=== PATIENT | female | born 1950 | race Caucasian/White ===

== ENCOUNTER 2018-05-19 09:40 | Emergency (ER) | payer MEDICARE, MEDICAID, SELFPAY ==
[2018-05-19 09:44] VITALS: BP 144/76; PULSE 70; RESP 18; TEMP 36.8; O2SAT 95
--- NOTE | 2018-05-19 10:04 | W.ED.GENAD ---
Discharge Plan Disposition Patient Disposition: HOME Condition: Stable Discharge Details Chief Complaint: Cellulitis Clinical Impression: Cat bite of left hand Primary Care Provider: Winnie,Local ED Provider: Anthony Sandoval Home Meds and New Rx's Prescriptions: New amoxicillin-pot clavulanate [Augmentin] 875-125 mg tablet 1 tab PO BID Qty: 14 RF: 0 Continued gabapentin 800 mg Tablet 800 mg PO TID RF: 0 trazodone 50 mg Tablet 150 mg PO HS RF: 0 amlodipine 2.5 mg Tablet 2.5 mg PO DAILY RF: 0 atorvastatin 40 mg Tablet 40 mg PO DAILY RF: 0 Myrbetriq 50 mg Tablet Extended Release 24 Hr 50 mg PO DAILY RF: 0 lisinopril 20 mg Tablet 20 mg PO DAILY RF: 0 paroxetine HCl 40 mg Tablet 60 mg PO QAM RF: 0 Discharge Instructions Instructions: Animal Bite (ED) Medical Decision Making 67 yo female who states she is utd on tetanus vaccines comes in as she was bitten by a neighbor's cat in the left hand this past Saturday. Came in today because of some discomfort. HAs healing bite wounds (4) that are puncture wounds with mild redness around the wounds. No significant swelling or discharge, no crepitus to suggest nec fasc and no joint swelling with full rom so doubt septic joint. No significant pain or deformity so doubt fx and do not feel xrays indicated. Will place on augmentin. She states the cat is still with the neighbor so can be monitored for rabies and understands to return immediately if signs of infection occur in hand or signs of rabies in the cat Differential Diagnosis animal bite, cellulitis HPI General Mode of arrival: ambulatory. Date/Time Provider Initiated Documentation: 05/19/18 09:58. Limitations to Documentation: no limitations. Information obtained by: patient. History of Present Illness 67 year old F presents to the emergency department with the chief complaint of left hand bite, described as moderate, Quality is described as aching, and is localized to the left and upper extremity. Patient reports no radiation. Patient started experiencing this day(s) (2) and it has been constant. No relieving factors improve symptom(s), No exacerbating factors reported . Patient notes no other symptoms.. Related Data Home Medications Medication Instructions Recorded Confirmed Myrbetriq 50 mg PO DAILY 05/19/18 05/19/18 amlodipine 2.5 mg PO DAILY 05/19/18 05/19/18 amoxicillin-pot clavulanate 1 tab PO BID #14 tab 05/19/18 [Augmentin] atorvastatin 40 mg PO DAILY 05/19/18 05/19/18 gabapentin 800 mg PO TID 05/19/18 05/19/18 lisinopril 20 mg PO DAILY 05/19/18 05/19/18 paroxetine HCl 60 mg PO QAM 05/19/18 05/19/18 trazodone 150 mg PO HS 05/19/18 05/19/18 Previous Rx's Medication Instructions Recorded amoxicillin-pot clavulanate 1 tab PO BID #14 tab 05/19/18 [Augmentin] Allergies Allergy/AdvReac Type Severity Reaction Status Date / Time risedronate sodium AdvReac Unverified 05/19/18 09:51 General Stated Complaint: Cellulitis NEHAL: 3 Review of Systems Review of Systems All systems reviewed & are unremarkable except as noted in HPI and below Constitutional Denies chills and Denies fever(s) ENT Denies change in voice Cardiovascular Denies chest pain and Denies dyspnea Respiratory Denies cough and Denies dyspnea Gastrointestinal Denies abdominal pain, Denies nausea and Denies vomiting [facility] Medical History Hypertension (Chronic) GERD (gastroesophageal reflux disease) (Chronic) Osteoporosis (Chronic) Hypercholesterolemia (Acute) Depression (Chronic) Chronic back pain (Acute) Fibromyalgia (Acute) Iron deficiency (Acute) Hx of bladder cancer (Acute) Cervical spondylosis without myelopathy (Acute) Primary insomnia (Acute) Urinary frequency (Acute) Primary osteoarthritis involving multiple joints (Acute) Arthritis of left acromioclavicular joint (Acute) Bilateral dry eyes (Acute) Hx of tuberculosis (Acute) Incontinence of feces (Acute) Skin lesion of right ear (Acute) Trochanteric bursitis (Acute) 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) Surgical History History of total bilateral knee replacement (TKR) (Acute) History of total left hip arthroplasty (Acute ~04/2016) Social History Smoking/Tobacco Use Status: Never Alcohol Intake: current Alcohol Intake frequency: a few times a month Drug use: Never Substance use type: does not use Do you feel safe at home: Yes Do you feel safe in your relationship?: Yes Exam Const General: no acute distress Orientation: alert HENMT Head: normal to inspection Ears: external ears normal General nose exam: external nose normal Mouth: moist mucous membranes Eyes General: appearance normal, both eyes and all related structures Neck Neck: normal visual inspection Resp Effort & Inspection: normal respiratory effort and able to speak in complete sentences Cardio Rate: regular rate Skin General skin exam: no rashes or lesions noted Neuro General: alert and oriented x3 Extrem General: full ROM and normal capillary refill Psych Mental Status: mental status grossly normal Course Vital Signs Temperature 36.8 C 05/19/18 09:44 Pulse 70 05/19/18 09:44 Respiratory Rate 18 05/19/18 09:44 Blood Pressure 144/76 H 05/19/18 09:44 Pulse Oximetry 95 05/19/18 09:44 Temperature 36.8 C 05/19/18 09:44 Temperature Source Skin 05/19/18 09:44 Pulse 70 05/19/18 09:44 Respiratory Rate 18 05/19/18 09:44 Respiratory Effort 05/19/18 09:58 Blood Pressure 144/76 H 05/19/18 09:44 Blood Pressure Position Sitting 05/19/18 09:44 Pulse Oximetry 95 05/19/18 09:44 Oxygen Delivery Method Room Air 05/19/18 09:44 Oxygen Flow Rate 0 05/19/18 09:44 Pain Level 0 05/19/18 09:44
--- NOTE | 2018-05-19 10:08 | ED.GENADUL_ITS ---
Discharge Plan Disposition Patient Disposition: HOME Condition: Stable Discharge Details Chief Complaint: Cellulitis Clinical Impression: Cat bite of left hand Primary Care Provider: Winnie,Local ED Provider: Anthony Sandoval Home Meds and New Rx's Prescriptions: New amoxicillin-pot clavulanate [Augmentin] 875-125 mg tablet 1 tab PO BID Qty: 14 RF: 0 Continued gabapentin 800 mg Tablet 800 mg PO TID RF: 0 trazodone 50 mg Tablet 150 mg PO HS RF: 0 amlodipine 2.5 mg Tablet 2.5 mg PO DAILY RF: 0 atorvastatin 40 mg Tablet 40 mg PO DAILY RF: 0 Myrbetriq 50 mg Tablet Extended Release 24 Hr 50 mg PO DAILY RF: 0 lisinopril 20 mg Tablet 20 mg PO DAILY RF: 0 paroxetine HCl 40 mg Tablet 60 mg PO QAM RF: 0 Discharge Instructions Instructions: Animal Bite (ED) Medical Decision Making 67 yo female who states she is utd on tetanus vaccines comes in as she was bitten by a neighbor's cat in the left hand this past Saturday. Came in today because of some discomfort. HAs healing bite wounds (4) that are puncture wounds with mild redness around the wounds. No significant swelling or discharge, no crepitus to suggest nec fasc and no joint swelling with full rom so doubt septic joint. No significant pain or deformity so doubt fx and do not feel xrays indicated. Will place on augmentin. She states the cat is still with the neighbor so can be monitored for rabies and understands to return immediately if signs of infection occur in hand or signs of rabies in the cat Differential Diagnosis animal bite, cellulitis HPI General Mode of arrival: ambulatory . Date/Time Provider Initiated Documentation: 05/19/18 09:58 . Limitations to Documentation: no limitations . Information obtained by: patient . History of Present Illness 67 year old F presents to the emergency department with the chief complaint of left hand bite, described as moderate, Quality is described as aching, and is localized to the left and upper extremity. Patient reports no radiation. Patient started experiencing this day(s) (2) and it has been constant. No relieving factors improve symptom(s), No exacerbating factors reported . Patient notes no other symptoms.. Related Data Home Medications Medication Instructions Recorded Confirmed Myrbetriq 50 mg PO DAILY 05/19/18 05/19/18 amlodipine 2.5 mg PO DAILY 05/19/18 05/19/18 amoxicillin-pot clavulanate 1 tab PO BID #14 tab 05/19/18 [Augmentin] atorvastatin 40 mg PO DAILY 05/19/18 05/19/18 gabapentin 800 mg PO TID 05/19/18 05/19/18 lisinopril 20 mg PO DAILY 05/19/18 05/19/18 paroxetine HCl 60 mg PO QAM 05/19/18 05/19/18 trazodone 150 mg PO HS 05/19/18 05/19/18 Previous Rx's Medication Instructions Recorded amoxicillin-pot clavulanate 1 tab PO BID #14 tab 05/19/18 [Augmentin] Allergies Allergy/AdvReac Type Severity Reaction Status Date / Time risedronate sodium AdvReac Unverified 05/19/18 09:51 General Stated Complaint: Cellulitis NEHAL: 3 Review of Systems Review of Systems All systems reviewed & are unremarkable except as noted in HPI and below Constitutional Denies chills and Denies fever(s) ENT Denies change in voice Cardiovascular Denies chest pain and Denies dyspnea Respiratory Denies cough and Denies dyspnea Gastrointestinal Denies abdominal pain, Denies nausea and Denies vomiting [facility] Medical History Hypertension (Chronic) GERD (gastroesophageal reflux disease) (Chronic) Osteoporosis (Chronic) Hypercholesterolemia (Acute) Depression (Chronic) Chronic back pain (Acute) Fibromyalgia (Acute) Iron deficiency (Acute) Hx of bladder cancer (Acute) Cervical spondylosis without myelopathy (Acute) Primary insomnia (Acute) Urinary frequency (Acute) Primary osteoarthritis involving multiple joints (Acute) Arthritis of left acromioclavicular joint (Acute) Bilateral dry eyes (Acute) Hx of tuberculosis (Acute) Incontinence of feces (Acute) Skin lesion of right ear (Acute) Trochanteric bursitis (Acute) 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) Surgical History History of total bilateral knee replacement (TKR) (Acute) History of total left hip arthroplasty (Acute ~04/2016) Social History Smoking/Tobacco Use Status: Never Alcohol Intake: current Alcohol Intake frequency: a few times a month Drug use: Never Substance use type: does not use Do you feel safe at home: Yes Do you feel safe in your relationship?: Yes Exam Const General: no acute distress Orientation: alert HENMT Head: normal to inspection Ears: external ears normal General nose exam: external nose normal Mouth: moist mucous membranes Eyes General: appearance normal, both eyes and all related structures Neck Neck: normal visual inspection Resp Effort & Inspection: normal respiratory effort and able to speak in complete sentences Cardio Rate: regular rate Skin General skin exam: no rashes or lesions noted Neuro General: alert and oriented x3 Extrem General: full ROM and normal capillary refill Psych Mental Status: mental status grossly normal Course Vital Signs Temperature 36.8 C 05/19/18 09:44 Pulse 70 05/19/18 09:44 Respiratory Rate 18 05/19/18 09:44 Blood Pressure 144/76 H 05/19/18 09:44 Pulse Oximetry 95 05/19/18 09:44 Temperature 36.8 C 05/19/18 09:44 Temperature Source Skin 05/19/18 09:44 Pulse 70 05/19/18 09:44 Respiratory Rate 18 05/19/18 09:44 Respiratory Effort 05/19/18 09:58 Blood Pressure 144/76 H 05/19/18 09:44 Blood Pressure Position Sitting 05/19/18 09:44 Pulse Oximetry 95 05/19/18 09:44 Oxygen Delivery Method Room Air 05/19/18 09:44 Oxygen Flow Rate 0 05/19/18 09:44 Pain Level 0 05/19/18 09:44
--- NOTE | 2018-05-19 10:33 | NUR.NOTE ---
Left a message on [facility] health officer voice mail [phone] asking for a call back to report animal bite, faxed animal bite form to [facility] clerks office [phone].Nursing Note:
== END 2018-05-19 10:21 | disposition home or self-care (01) ==
PROVIDERS: Emergency Provider Emergency Medicine
DX: L03.114 Cellulitis of left upper limb (principal)
CPT/HCPCS: 99283

== ENCOUNTER 2018-06-25 10:21 | Outpatient (CLI) | payer MEDICARE, MEDICAID, SELFPAY ==
--- NOTE | 2018-06-25 10:17 | DI.RAD_ITS ---
SYMPTOM/DIAGNOSIS: LT SHOULDER PAIN LEFT SHOULDER: Two views were obtained. There are moderate changes of hypertrophic spurring of the acromioclavicular and glenohumeral joints. No other significant bony abnormality is seen.
== END 2018-06-25 10:41 ==
PROVIDERS: PCP Family Medicine; Referring Provider Family Medicine; Visit Provider Orthopaedic Surgery
DX: G89.29 Other chronic pain (principal); M25.512 Pain in left shoulder
CPT/HCPCS: 20610; 99201; 99213; 73030; J1040

== ENCOUNTER 2018-08-01 13:00 | Outpatient (REF) | payer MEDICARE, MEDICAID, SELFPAY ==
[2018-08-01 13:12] LABS: Abs Immature Grans 0.01 k/cumm (0.0-0.09); Absolute Basophil Count 0.04 k/cumm (0.0-0.2); Absolute Eosinophil Count 0.14 k/cumm (0.0-0.7); Absolute Lymphocyte Count 1.43 k/cumm (1.2-3.4); Absolute Monocyte Count 0.41 k/cumm (0.11-0.7); Absolute Neutrophil Count 2.46 k/cumm (1.2-6.7); Basophils % 0.9; Eosinophils % 3.1; HCT 42.5 % (36.0-46.0); HGB 14.2 g/dL (12.0-15.5); Immature Grans % 0.2; Lymphocytes % 31.8; Mean Corp. HGB Concentration 33.4 g/dL (32.0-36.0); Mean Corpuscular Hemoglobin 36.4 pg (27.0-33.0); Mean Platelet Volume 10.2 fL (8.0-11.0); Monocytes % 9.1; Neutrophils % 54.9; Platelet Count 180 x1000/uL (130-400); RBC Distribution Width 12.8 % (11.7-14.6); White Blood Cell Count 4.49 k/cumm (4.4-10.8)
[2018-08-01 14:31] LABS: Diff Comment RBC Morph Reviewed; Macrocytosis 2+
== END 2018-08-01 13:20 ==
LOC: NCHCN 13:00
PROVIDERS: PCP Family Medicine; Visit Provider Family Medicine
DX: R23.8 Other skin changes (principal)
CPT/HCPCS: 85025

== ENCOUNTER → 2018-08-06 09:20 | Outpatient (BNVA) | payer MEDICARE, MEDICAID, SELFPAY | PROVIDERS: PCP Family Medicine; Referring Provider Family Medicine; Visit Provider Orthopaedic Surgery | DX: M75.102 Unspecified rotator cuff tear or rupture of left shoulder, not specified as traumatic (principal); Z98.890 Other specified postprocedural states; I10 Essential (primary) hypertension; M19.012 Primary osteoarthritis, left shoulder | CPT/HCPCS: 99213 ==

== ENCOUNTER 2018-08-15 01:44 | Outpatient (CLI) | payer MEDICARE, MEDICAID, SELFPAY ==
--- NOTE | 2018-08-15 07:11 | DI.MRI_ITS ---
SYMPTOMS/DIAGNOSIS: LT SHOULDER PAIN, OA LT AC JOINT, M19.012, LT ROTATOR CUFF TEAR, M75.102 MRI OF THE LEFT SHOULDER: Comparison is made with plain films dated [id number]. Proton density and fat suppressed T 2 axial and coronal and T 1 and fat suppressed T 2 sagittal sequences were performed. There are mild degenerative changes of the AC joint. There is no definite impingement. There is some high signal in the anterior supraspinatus tendon which could represent tendinitis or partial tear. There is no significant joint effusion. There are subchondral cysts near the greater tuberosity. There is some degeneration of the glenoid labrum and thinning of the glenohumeral joint cartilage. The infraspinatus, subscapularis, teres minor and biceps tendons appear intact. IMPRESSION: Partial tear vs tendinitis of the supraspinatus. Degenerative changes of the glenohumeral joint.
== END 2018-08-15 02:04 ==
PROVIDERS: PCP Family Medicine; Visit Provider Orthopaedic Surgery
DX: M19.012 Primary osteoarthritis, left shoulder (principal); M75.102 Unspecified rotator cuff tear or rupture of left shoulder, not specified as traumatic; M25.512 Pain in left shoulder; M25.812 Other specified joint disorders, left shoulder
CPT/HCPCS: 73221

== ENCOUNTER → 2018-08-18 08:44 | Outpatient (BNVA) | payer MEDICARE, MEDICAID, SELFPAY | PROVIDERS: PCP Family Medicine; Referring Provider Family Medicine; Visit Provider Surgery | DX: K21.9 Gastro-esophageal reflux disease without esophagitis (principal); I10 Essential (primary) hypertension | CPT/HCPCS: 99203; 99214 ==

== ENCOUNTER → 2018-08-21 09:23 | Outpatient (BNVA) | payer MEDICARE, MEDICAID, SELFPAY | PROVIDERS: Referring Provider Family Medicine; Visit Provider Orthopaedic Surgery | DX: M19.012 Primary osteoarthritis, left shoulder (principal) | CPT/HCPCS: 99213 ==

== ENCOUNTER 2018-08-25 07:19 | Day surgery (SDC) | payer MEDICARE, MEDICAID, SELFPAY ==
[2018-08-25] VITALS (7 sets, daily range): BP systolic 95–128; BP diastolic 51–73; PULSE 59–67; RESP 14–27; TEMP 36–36.7; O2SAT 92–94
[2018-08-25] MEDS: ceFAZolin 1 GM/50 ML BAG IVPB (09:59)
--- NOTE | 2018-08-25 10:18 | STOM_PTH ---
PATIENT: Wendy Salter LOC: [facility] U#:[id number] AGE/SX: 67/F ROOM: RE08/25/[address]: Briseida Tovar MD : [id number] BED: DIS: 08/25/2018 SPEC #: [id number] RECD: 08/25/18 12:54 STATUS: ALEXANDRA REQ #: [id number] RD: 08/25/18 10:[address]: Briseida Tovar DEPT: Surgical Specimen RECD BY: Bridgette Hunter ENTERED: 08/25/18 12:56 SP TYPE: STOMACH OTHR DR: MD Ezra Ferreira DO Tissues: 1 - STOMACH BIOPSY 2 - ESOPHAGUS BIOPSY 3 - ESOPHAGUS BIOPSY Procedures: GROSS AND MICRO LEVEL 4 Comments: [id number]
--- NOTE | 2018-08-25 11:06 | W.PM.DSUDISC ---
Discharge Plan Disposition Patient Disposition: HOME Condition: Good Discharge Details Reason For Visit: (L) SHOULDER DISTAL CLAVICLE / DYSPHAGIA Attending Provider: Briseida Tovar Primary Care Provider: Ezra Lebron Home Meds and New Rx's Prescriptions: New hydrocodone-acetaminophen 5-325 mg tablet 1 tab PO Q6H PRN (Reason: pain) Qty: 10 RF: 0 Continued Shingrix (PF) 50 mcg/0.5 mL suspension for reconstitution 50 mcg IM ONCE Qty: 1 RF: 1 paroxetine HCl 40 mg tablet 60 mg PO QAM Qty: 135 RF: 3 naproxen sodium [Aleve] 220 mg tablet 440 mg PO BID PRNRF: 0 acetaminophen [Tylenol] 325 mg capsule 975 mg PO TID PRNRF: 0 cholecalciferol (vitamin D3) 1,000 unit capsule 1,000 unit PO DAILY RF: 0 loperamide 2 mg capsule 2 mg PO TID PRN (Reason: diarrhea) RF: 0 albuterol sulfate 90 mcg/actuation HFA aerosol inhaler See Rx Instructions IH Q4H PRN (Reason: Wheezing or cough) RF: 0 gabapentin 800 mg Tablet 800 mg PO TID RF: 0 trazodone 50 mg Tablet 150 mg PO HS RF: 0 amlodipine 2.5 mg Tablet 2.5 mg PO DAILY RF: 0 atorvastatin [Lipitor] 40 mg Tablet 40 mg PO DAILY RF: 0 Myrbetriq 50 mg Tablet Extended Release 24 Hr 50 mg PO DAILY RF: 0 lisinopril 20 mg Tablet 20 mg PO DAILY RF: 0 Discharge Instructions Additional Instructions: Sling for comfort. May take L arm out of sling as much as your discomfort allows. Discontinue sling completely when you can keep L arm out of sling with mild pain. Move and use L arm as much as your discomfort allows you to. Apply bag of ice to top of L shoulder every 4 hours for 1 hour each time. May remove dressings, shower, and get incision wet after 48 hours. Leave incision uncovered when it is dry and sealed. Follow up with in 2 weeks. Take tylenol for mild pain. Take hydrocodone for breakthru pain, if needed. Referrals: Ulises Heart MD [ [facility] STAFF PHYSICIAN] - (f/u in 2 weeks.) Equipment/Supplies: Sling Activity:: Activity as Tolerated Remove Dressings/Wound Care:: 48 hours Shower/Bathe:: 48 hours Diet:: As Tolerated Discharge Orders Discharge Orders: Discharge Order (Routine); Ordered 08/25/18 Ordered By: Ulises Heart
--- NOTE | 2018-08-25 15:33 | ROE_ITS ---
DATE OF PROCEDURE: August 25, 2018 PREOPERATIVE DIAGNOSIS: Reflux. POSTOPERATIVE DIAGNOSIS: 1. Mild gastritis and duodenitis. 2. 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 3. Dysphagia status post lap Sarika. PROCEDURE: 1. EGD with biopsy of gastric antrum and distal and mid esophagus. 2. Esophageal dilation with a balloon. SURGEON: Briseida Tovar M.D. ANESTHESIA: General endotracheal. INDICATIONS: This is a 67-year-old woman who report substernal burning several times a week. She is also having trouble swallowing her pills and crackers. She has needed dilation once in the past. W e did obtain an EGD report from 2004 that also showed possible Rod's esophagus. This particular report did not describe any dilation. She had a brother with esophageal cancer. PROCEDURE: She was placed supine on the operating table and was intubated in preparation for her con comitant shoulder surgery. The scope was advanced into her esophagus under direct visualization and down into the stomach and duodenum. She had mild duodenitis in the bulb, as well as of the gastric a ntrum. Biopsies were performed here to evaluate for H. pylori. The remainder of the stomach appeare d normal. Retroflex view of the fundus and lesser curve just showed an intact-appearing wrap. The G E junction was somewhat irregular with possible Rod's esophagus extending 1 or 2 cm into the esop hagus in two locations. These were biopsied and sent as the distal esophagus specimen. I also biops ied the mid esophagus to evaluate for possible eosinophilia. Because of her issues with dysphagia, I did perform a balloon dilation at the GTE junction. The 18 [place] balloon was inflated and held in place for a minute. There was no unusual trauma to the vicinity. The scope was slowly withdrawn wi th no other esophageal lesions found. She tolerated the procedure well and remained in the Operating Room for Dr. Heart's portion of the procedure. It may be necessary to keep her on a regular antaci d. I will contact with biopsy results. cc: Ezra Lebron D.O.
--- NOTE | 2018-08-25 16:32 | ROE_ITS ---
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 POSTOPERATIVE DIAGNOSIS: Same. PROCEDURE: Excision distal clavicle, left. ANESTHESIA: General. SURGEON: Ulises Heart M.D. [employer] SCIENCE TE[employer]ER: Noe Mcclain PA-C INDICATIONS: This is a 67-year-old white female with continued severe left shoulder pain of several months duration. She has not responded to conservative treatment, including subacromial space inject ions. MRI scan was obtained which confirmed DJD of the AC joint with no tear of the rotator cuff. C linical examination was consistent with the AC joint being the source of her pain. Excision of the d istal clavicle was recommended to alleviate her shoulder pain on a permanent basis because of the sondra lure of conservative treatment to do so. The patient had been scheduled for upper endoscopy with Dr. Tovar on 08/26/18. It was decided that rather than have two anesthetics that she would have both proc edures done under the same anesthetic. The decision was made to have Dr. Tovar proceed with the endos copy first and that I would follow with the excision of the distal clavicle on the left. Please see Dr. Tovar's note for specifics about the endoscopy. PROCEDURE: The patient was taken to the Operating Room on 08/25/18. She was placed supine on the ope rating table and sedated so the endoscopy could be performed by Dr. Tovar. After the endoscopy was co mplete, a general anesthetic was administered. The patient was placed in the smith chair position a nd the left shoulder was prepped and draped free in the usual sterile fashion. I infiltrated the ski n on the superior aspect of the shoulder with 0.5% Marcaine with an epinephrine solution. A longitud inal incision about three inches long was made on the superior aspect of the shoulder, centered over the AC joint. The incision was carried down through the skin and subcu to the AC joint capsule. A l ongitudinal incision was made in the AC joint capsule with electrocautery and the distal clavicle was subperiosteally exposed. AO metatarsal retractors were inserted. The distal centimeter of the cla vicle was transected with oscillating saw. The distal clavicle was then sharply excised. The wound was irrigated with saline solution. Soft tissue bleeders were cauterized. I packed the distal clavi livia with bone wax to limit bony bleeding. The AC joint capsule was then infiltrated with 0.5% Marcai ne with an epinephrine solution. The subacromial bursa was then injected with 0.5% Marcaine with an epinephrine solution also. The periosteum over the distal clavicle and the AC joint capsule were rep aired with interrupted [id number] sutures of #1 Vicryl suture material. The subcu was approxima pancho with a few interrupted #2-0 Vicryl sutures and a subcuticular closure was performed, supplemented with Steri-Strips. Sterile dressings were applied, followed by a light pressure dressing to the inc ision. The left arm was placed in a sling. The patient's anesthesia was reversed without complicati on. Blood loss was minimal. She was discharged to recovery in good condition. The patient was discharged home from the Day Surgery Unit when fully recovered from her general anest hesia. She was given instructions to use the sling for comfort. She may take her left arm out of th e sling as often and for as long as discomfort allows. She can wean herself out of the sling complet caio once her left shoulder pain is minimal. She may remove her dressings, shower and get her incisio n wet after 48 hours. She can leave the incision uncovered when it is dry and sealed. She will take Tylenol for mild pain. For breakthrough pain she was given a prescription for Hydrocodone with APAP 5/325, one tablet every six hours, if needed. She will follow-up with me in two weeks. She may use her left arm as much as discomfort allows.
== END 2018-08-25 13:10 | disposition home or self-care (01) ==
PROVIDERS: Orthopaedic Surgery; PCP Family Medicine; Visit Provider Surgery
PROC: (CPT 23120; principal; 2018-08-25 08:30)
PROC: 0D758ZZ Dilation of Esophagus, Via Natural or Artificial Opening Endoscopic (ICD-10-PCS; 2018-08-25 08:30)
DX: M19.012 Primary osteoarthritis, left shoulder (principal); K21.0 Gastro-esophageal reflux disease with esophagitis; K29.80 Duodenitis without bleeding; R13.10 Dysphagia, unspecified; M25.512 Pain in left shoulder
CPT/HCPCS: 23120; 43239; 43249; 88305; J0690; J1100; J1885; J2405; L3650

== ENCOUNTER → 2018-09-09 09:10 | Outpatient (BNVA) | payer MEDICARE, MEDICAID, SELFPAY | PROVIDERS: PCP Family Medicine; Referring Provider Family Medicine; Visit Provider Orthopaedic Surgery | DX: Z47.89 Encounter for other orthopedic aftercare (principal); I10 Essential (primary) hypertension; M19.012 Primary osteoarthritis, left shoulder ==

== ENCOUNTER 2018-10-08 11:29 | Outpatient (CLI) | payer MEDICARE, MEDICAID, SELFPAY ==
--- NOTE | 2018-10-08 09:43 | DI.RAD_ITS ---
SYMPTOM/DIAGNOSIS: PAIN RIGHT HIP AND PELVIS: Two views. No priors. The patient has a prior left total hip replacement which appears in good position on these views. The right hip joint is well maintained without significant degenerative change. The bones are intact and normally mineralized. The soft tissues are unremarkable. IMPRESSION: Negative right hip.
== END 2018-10-08 11:49 ==
PROVIDERS: PCP Family Medicine; Referring Provider Family Medicine; Visit Provider Orthopaedic Surgery
DX: M25.551 Pain in right hip (principal); Z96.642 Presence of left artificial hip joint; M16.11 Unilateral primary osteoarthritis, right hip; I10 Essential (primary) hypertension; Z96.653 Presence of artificial knee joint, bilateral
CPT/HCPCS: 99211; 99213; 73502

== ENCOUNTER 2018-10-09 11:21 | Outpatient (REF) | payer MEDICARE, MEDICAID, SELFPAY ==
[2018-10-09 20:40] LABS: ALT 39 U/L (14-59); AST 27 U/L (15-37); Albumin 4.1 g/dL (3.4-5.0); Alkaline Phosphatase 74 U/L (46-116); Anion Gap 10.7 mmol/L (3-11); BUN 15 mg/dL (7-18); Bilirubin, Total 0.9 mg/dL (0.2-1.0); CO2 25.3 mmol/L (21.0-32.0); CREATININE 0.91 mg/dL (0.55-1.02); Calcium 8.9 mg/dL (8.5-10.1); Chloride 105 mmol/L (98-107); Folate 15.6 ng/mL (8.6-20.0); Glucose 99 mg/dL (70-100); Potassium 4.3 mmol/L (3.5-5.1); Sodium 141 mmol/L (136-145); Total Protein 7.2 g/dL (6.4-8.2); Vitamin B12 358 pg/mL (193-986)
== END 2018-10-09 11:41 ==
LOC: LBN 11:21
PROVIDERS: PCP Family Medicine; Visit Provider Family Medicine
DX: M13.0 Polyarthritis, unspecified (principal); D75.89 Other specified diseases of blood and blood-forming organs
CPT/HCPCS: 80053; 82607; 82746

== ENCOUNTER 2018-11-07 17:30 | Emergency (ER) | payer MEDICARE, MEDICAID, SELFPAY ==
[2018-11-07 17:35] VITALS: BP 135/76; PULSE 69; RESP 18; TEMP 36.9; O2SAT 98
--- NOTE | 2018-11-07 17:39 | DI.RAD_ITS ---
EXAM: XR ANKLE RT COMPLETE INDICATION: R ankle pain after errant footsetep. COMPARISON: No exams were available for comparison TECHNIQUE: 2D digital imaging was performed. FINDINGS: There is a nondisplaced transverse fracture of the lateral malleolus. No other fracture or dislocati on is identified. There is soft tissue swelling of the particularly laterally. IMPRESSION: Fracture of the lateral malleolus as described above.
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
--- NOTE | 2018-11-07 18:54 | NUR.NOTE ---
Nursing Note: report given to Romy CARPENTER
== END 2018-11-07 19:31 | disposition home or self-care (01) ==
PROVIDERS: Emergency Provider Emergency Medicine; PCP Family Medicine
DX: S82.64XA Nondisplaced fracture of lateral malleolus of right fibula, initial encounter for closed fracture (principal); X50.1XXA Overexertion from prolonged static or awkward postures, initial encounter
CPT/HCPCS: 29515; 99283; 73610; 99282; E0114; L4361

== ENCOUNTER 2018-11-18 15:22 | Outpatient (CLI) | payer MEDICARE, MEDICAID, SELFPAY ==
--- NOTE | 2018-11-18 12:52 | DI.RAD_ITS ---
EXAM: XR ANKLE RT COMPLETE INDICATION: fracture. COMPARISON: XR ANKLE RT COMPLETE from 11/07/2018 TECHNIQUE: 2D digital imaging was performed. FINDINGS: When compared with the previous examination, again noted is a nondisplaced fracture of the lateral ma lleolus. There is some blurring of the fracture line and there is nothing to suggest that healing is not progressing satisfactorily at the present time.
--- NOTE | 2018-11-18 13:27 | DI.RAD_ITS ---
EXAM: XR FOOT RT COMPLETE INDICATION: FRACTURE. COMPARISON: No exams were available for comparison TECHNIQUE: 2D digital imaging was performed. FINDINGS: There is an apparent healing nondisplaced fracture of the proximal metaphysis of the proximal phalanx of the right 2nd toe.
== END 2018-11-18 15:42 ==
PROVIDERS: PCP Family Medicine; Referring Provider Family Medicine; Visit Provider Student in an Organized Health Care Education/Training Program
DX: S82.831A Other fracture of upper and lower end of right fibula, initial encounter for closed fracture (principal); W07.XXXA Fall from chair, initial encounter; I10 Essential (primary) hypertension
CPT/HCPCS: 99203; 99214; 73610; 73630

== ENCOUNTER → 2019-02-02 10:22 | Outpatient (BNVA) | payer MEDICARE, MEDICAID, SELFPAY | PROVIDERS: PCP Family Medicine; Referring Provider Family Medicine; Visit Provider Nurse Practitioner Gerontology | DX: R31.9 Hematuria, unspecified (principal); Z85.51 Personal history of malignant neoplasm of bladder; R35.0 Frequency of micturition; R05 Cough | CPT/HCPCS: 81003; 99204; 99215 ==

== ENCOUNTER → 2019-02-19 10:31 | Outpatient (BNVA) | payer MEDICARE, MEDICAID, SELFPAY | PROVIDERS: PCP Family Medicine; Referring Provider Family Medicine; Visit Provider Nurse Practitioner Gerontology | DX: N32.81 Overactive bladder (principal) | CPT/HCPCS: 64566; 99214 ==

== ENCOUNTER 2019-02-23 00:59 | Outpatient (CLI) | payer MEDICARE, MEDICAID, SELFPAY ==
--- NOTE | 2019-02-23 15:21 | DI.MAMMO_ITS ---
EXAM: MG MAMMO SCREENING CLINICAL HISTORY: screening Z12.39. TECHNIQUE: Bilateral full field digital CC and MLO mammographic images were obtained with 3D tomosyn thesis and utilizing computer aided detection (CAD). COMPARISON: Available for comparison. FINDINGS: Masses/Architectural Distortion: None seen. Microcalcifications: No suspicious pleomorphic-type are seen. Skin Thickening/Nipple Retraction: None. IMPRESSION: 1. No significant interval change with no specific features of malignancy noted. 2. Unless there is more urgent need, screening mammography is recommended, as per [place] [employer] guidelines. ACR BI-RAD Category- 1 Negative Breast Density - Category B - Scattered areas of fibroglandular density A negative radiographic report should not delay biopsy if a dominant or clinically suspicious mass is present. Up to ten percent of cancers are not identified on mammography. A negative report may reinforce clinical impression. Adenosis and dense breasts may obscure an underlying neoplasm. False positive reports average 6 to 10%. Patient will receive a letter notifying them of these results.
== END 2019-02-23 01:19 ==
PROVIDERS: PCP Family Medicine; Visit Provider Family Medicine
DX: Z12.31 Encounter for screening mammogram for malignant neoplasm of breast (principal)
CPT/HCPCS: 77063; 77067

== ENCOUNTER → 2019-03-05 14:53 | Outpatient (BNVA) | payer MEDICARE, MEDICAID, SELFPAY | PROVIDERS: PCP Family Medicine; Referring Provider Family Medicine; Visit Provider Nurse Practitioner Gerontology | DX: N32.81 Overactive bladder (principal) | CPT/HCPCS: 64566; 99213 ==

== ENCOUNTER → 2019-03-12 15:13 | Outpatient (BNVA) | payer MEDICARE, MEDICAID, SELFPAY | PROVIDERS: PCP Family Medicine; Referring Provider Family Medicine; Visit Provider Nurse Practitioner Gerontology | DX: N32.81 Overactive bladder (principal) | CPT/HCPCS: 64566; 99213 ==

== ENCOUNTER → 2019-03-19 10:43 | Outpatient (BNVA) | payer MEDICARE, MEDICAID, SELFPAY | PROVIDERS: PCP Family Medicine; Referring Provider Family Medicine; Visit Provider Nurse Practitioner Gerontology | DX: R30.0 Dysuria (principal); N32.81 Overactive bladder | CPT/HCPCS: 64566; 81003; 99213 ==

== ENCOUNTER → 2019-03-26 14:42 | Outpatient (BNVA) | payer MEDICARE, MEDICAID, SELFPAY | PROVIDERS: PCP Family Medicine; Referring Provider Family Medicine; Visit Provider Nurse Practitioner Gerontology | DX: N32.81 Overactive bladder (principal) | CPT/HCPCS: 64566; 99213 ==

== ENCOUNTER → 2019-04-02 14:57 | Outpatient (BNVA) | payer MEDICARE, MEDICAID, SELFPAY | PROVIDERS: PCP Family Medicine; Referring Provider Family Medicine; Visit Provider Nurse Practitioner Gerontology | DX: N32.81 Overactive bladder (principal) | CPT/HCPCS: 64566; 99213 ==

== ENCOUNTER → 2019-04-09 09:27 | Outpatient (BNVA) | payer MEDICARE, MEDICAID, SELFPAY | PROVIDERS: PCP Family Medicine; Referring Provider Family Medicine; Visit Provider Nurse Practitioner Gerontology | DX: N32.81 Overactive bladder (principal) | CPT/HCPCS: 64566; 99213 ==

== ENCOUNTER → 2019-04-16 14:21 | Outpatient (BNVA) | payer MEDICARE, MEDICAID, SELFPAY | PROVIDERS: PCP Family Medicine; Referring Provider Family Medicine; Visit Provider Nurse Practitioner Gerontology | DX: N32.81 Overactive bladder (principal) | CPT/HCPCS: 64566; 99203; 99214 ==

== ENCOUNTER 2019-08-24 00:40 | Outpatient (CLI) | payer MEDICARE, MEDICAID, SELFPAY ==
--- NOTE | 2019-08-24 12:15 | DI.RAD_ITS ---
EXAM: XR HAND LT COMPLETE CLINICAL HISTORY: assess alignment; r/o erosions/RA M79.642 PAIN LT HAND. TECHNIQUE: 2D digital imaging was performed. COMPARISON: No exams were available for comparison FINDINGS: At the 1st CMC joint, there is subchondral sclerosis and osteophyte formation. The MCP joints are we ll maintained without erosion or joint space narrowing. The interphalangeal joints of the hand well maintained with small marginal osteophytes. The bones are intact and normally mineralized. The soft tissues are unremarkable. IMPRESSION: Mild degenerative changes of the left hand. DATA REPOSITORY: RADIATION DOSE DELIVERED:
--- NOTE | 2019-08-24 12:15 | DI.RAD_ITS ---
EXAM: XR HAND RT COMPLETE CLINICAL HISTORY: assess alignment; r/o erosions/RA M79.641 PAIN RT HAND. TECHNIQUE: 2D digital imaging was performed. COMPARISON: No exams were available for comparison FINDINGS: Mild degenerative changes are seen in the right hand characterized by periarticular spurring and subc hondral sclerosis. The findings are most marked at the 1st CMC joint. The metacarpophalangeal joint s are well maintained without joint space narrowing, erosions or periarticular osteopenia. No soft t issue calcifications are seen. The bones are normally mineralized. IMPRESSION: Mild degenerative changes of the right hand. DATA REPOSITORY: RADIATION DOSE DELIVERED:
== END 2019-08-24 01:00 ==
PROVIDERS: PCP Nurse Practitioner Adult Health; Visit Provider Nurse Practitioner Adult Health
DX: M79.641 Pain in right hand (principal); M79.642 Pain in left hand; M18.11 Unilateral primary osteoarthritis of first carpometacarpal joint, right hand; M19.041 Primary osteoarthritis, right hand; M19.042 Primary osteoarthritis, left hand; M18.12 Unilateral primary osteoarthritis of first carpometacarpal joint, left hand; N39.46 Mixed incontinence; Z85.51 Personal history of malignant neoplasm of bladder; F32.9 Major depressive disorder, single episode, unspecified; I10 Essential (primary) hypertension; K62.5 Hemorrhage of anus and rectum; M25.50 Pain in unspecified joint; M81.0 Age-related osteoporosis without current pathological fracture; M79.7 Fibromyalgia
CPT/HCPCS: 36415; 80053; 81003; 82306; 99213; 73130; 84443; 85025; 86431

== ENCOUNTER 2019-08-24 01:36 | Outpatient (CLI) | payer MEDICARE, MEDICAID, SELFPAY ==
[2019-08-24 12:22] LABS: Abs Immature Grans 0.01 k/cumm (0.0-0.09); Absolute Basophil Count 0.03 k/cumm (0.0-0.2); Absolute Eosinophil Count 0.11 k/cumm (0.0-0.7); Absolute Lymphocyte Count 1.17 k/cumm (1.2-3.4); Absolute Monocyte Count 0.44 k/cumm (0.11-0.7); Absolute Neutrophil Count 3.79 k/cumm (1.2-6.7); Basophils % 0.5; HGB 14.7 g/dL (12.0-15.5); Immature Grans % 0.2 %; Lymphocytes % 21.1; Mean Corp. HGB Concentration 33.4 g/dL (32.0-36.0); Mean Corpuscular Hemoglobin 33.9 pg (27.0-33.0); Mean Corpuscular Volume 101.4 fL (80-95); Mean Platelet Volume 9.3 fL (8.0-11.0); Monocytes % 7.9; Neutrophils % 68.3; Platelet Count 191 x1000/uL (130-400); RBC 4.34 m/cumm (4.00-5.20); RBC Distribution Width 12.5 % (11.7-14.6); White Blood Cell Count 5.55 k/cumm (4.4-10.8)
[2019-08-24 13:28] LABS: ALT 34 U/L (14-59); AST 30 U/L (15-37); Alkaline Phosphatase 84 U/L (46-116); Anion Gap 9.8 mmol/L (3-11); BUN 10 mg/dL (7-18); Bilirubin, Total 1.1 mg/dL (0.2-1.0); CO2 28.2 mmol/L (21.0-32.0); CREATININE 0.88 mg/dL (0.55-1.02); Calcium 8.8 mg/dL (8.5-10.1); Chloride 99 mmol/L (98-107); Glucose 93 mg/dL (74-106); Potassium 4.2 mmol/L (3.5-5.1); Sodium 137 mmol/L (136-145); TSH (W/Ref FT4) 0.95 uIU/mL (0.36-3.74); Total Protein 7.1 g/dL (6.4-8.2)
[2019-08-24 13:33] LABS: Vitamin D 25 Total 29.3 ng/ml (30-100)
[2019-08-24 20:49] LABS: Rheumatoid Factor <8.6 IU/mL (<12.0)
== END 2019-08-24 01:56 ==
PROVIDERS: PCP Nurse Practitioner Adult Health; Visit Provider Nurse Practitioner Adult Health
DX: F32.9 Major depressive disorder, single episode, unspecified (principal); I10 Essential (primary) hypertension; K62.5 Hemorrhage of anus and rectum; M25.50 Pain in unspecified joint; M79.641 Pain in right hand; M79.642 Pain in left hand; M81.0 Age-related osteoporosis without current pathological fracture; M79.7 Fibromyalgia
CPT/HCPCS: 36415; 80053; 82306; 84443; 85025; 86431

== ENCOUNTER 2019-08-24 14:00 | Outpatient (REF) | payer MEDICARE, MEDICAID, SELFPAY ==
--- NOTE | 2019-08-24 14:00 | PAPNONF_PTH ---
PATIENT: Wendy Salter LOC: [facility] U#:[id number] AGE/SX: 68/F ROOM: RE08/24/[address]: Nadya Bowers DNP : 1950 BED: DIS: 08/24/2019 SPEC #: [id number] RECD: 08/24/19 17:02 STATUS: ALEXANDRA REReji #: [id number] RD: 08/24/19 14:[address]: Nadya Bowers DEPT: [facility] Cytology RECD BY: Bridgette Hunter ENTERED: 08/24/19 17:02 SP TYPE: MONCHO STATON DR: Laura Jenkins APRN Tissues: 1 - BODY FLUID CYTO(SPUTUM/URINE)UV Procedures: BODY FLUID CYTO(URINE/SPUTUM) Comments: [id number] (TOTAL VOLUME + 90 ml's) (45 ml's URINE & 45 ml's CYTOLYT ADDED IN 2 CONTAINERS)
== END 2019-08-24 14:20 ==
LOC: LBN 14:00
PROVIDERS: PCP Nurse Practitioner Adult Health; Visit Provider Nurse Practitioner Gerontology
DX: Z85.51 Personal history of malignant neoplasm of bladder (principal)
CPT/HCPCS: 88104

== ENCOUNTER 2019-09-07 08:50 | Outpatient (CLI) | payer MEDICARE, MEDICAID, SELFPAY ==
[2019-09-09 03:05] LABS: COVID-19 RT-PCR Result NEGATIVE (Negative)
== END 2019-09-07 09:10 ==
PROVIDERS: Urology; PCP Nurse Practitioner Adult Health; Visit Provider Nurse Practitioner Gerontology
DX: Z11.59 Encounter for screening for other viral diseases (principal)
CPT/HCPCS: U0003

== ENCOUNTER → 2019-09-08 10:50 | Outpatient (BNVA) | payer MEDICARE, MEDICAID, SELFPAY | PROVIDERS: PCP Nurse Practitioner Adult Health; Referring Provider Nurse Practitioner Adult Health; Visit Provider Orthopaedic Surgery | DX: M25.531 Pain in right wrist (principal); M25.532 Pain in left wrist | CPT/HCPCS: 99213 ==

== ENCOUNTER 2019-09-10 09:07 | Day surgery (SDC) | payer MEDICARE, MEDICAID, SELFPAY ==
[2019-09-10 09:11] VITALS: BP 154/85; PULSE 70; RESP 16; TEMP 36.2; O2SAT 94
[2019-09-10] MEDS: Lactated Ringers 1,000 ML 80 ML IV (09:50)
[2019-09-10] MEDS: ceFAZolin 1 GM/50 ML BAG IVPB (10:04)
[2019-09-10] MEDS: Lidocaine 2% Jelly 6 ML SYR (10:17)
--- NOTE | 2019-09-10 10:30 | W.PM.DSUDISC ---
Discharge Plan Disposition Patient Disposition: HOME Condition: Stable Discharge Details Reason For Visit: INCONTINENCE Attending Provider: Andrey Shukla Primary Care Provider: Laura Jenkins Home Meds and New Rx's Prescriptions: No Action acetaminophen [Tylenol] 325 mg capsule 975 mg PO TID PRNRF: 0 solifenacin [Vesicare] 5 mg tablet 5 mg PO DAILY Qty: 30 RF: 0 prednisone 5 mg tablet 5 mg PO BID Qty: 30 RF: 0 triamcinolone acetonide 0.1 % cream 1 applic TP BID Qty: 80 RF: 1 hydrocortisone 2.5 % cream 1 applic TP BID PRN (Reason: skin irritation) Qty: 20 RF: 0 omeprazole 20 mg capsule,delayed release(DR/EC) 20 mg PO DAILY Qty: 90 RF: 3 cholecalciferol (vitamin D3) 1,000 unit capsule 1,000 unit PO DAILY RF: 0 loperamide 2 mg capsule 2 mg PO TID PRN (Reason: diarrhea) RF: 0 albuterol sulfate 90 mcg/actuation HFA aerosol inhaler See Rx Instructions IH Q4H PRN (Reason: Wheezing or cough) RF: 0 trazodone 50 mg tablet 150 mg PO HS Qty: 270 RF: 3 atorvastatin [Lipitor] 40 mg tablet 40 mg PO DAILY Qty: 90 RF: 3 celecoxib 100 mg capsule 100 mg PO DAILY PRN (Reason: pain) Qty: 30 RF: 3 Hold Instructions: Home Medication placed on hold at Doctor's office lisinopril 20 mg tablet 20 mg PO DAILY Qty: 90 RF: 3 Myrbetriq 50 mg tablet extended release 24 hr 50 mg PO DAILY Qty: 90 RF: 3 amlodipine 2.5 mg tablet 2.5 mg PO DAILY Qty: 90 RF: 3 paroxetine HCl 40 mg tablet 60 mg PO QAM Qty: 135 RF: 3 gabapentin 800 mg tablet 800 mg PO TID Qty: 270 RF: 0 Discharge Instructions Additional Instructions: No follow up appt needed but ask pt to call in @ 1 week with progress report Activity:: Activity as Tolerated Shower/Bathe:: 24 hours Diet:: As Tolerated Discharge Orders Discharge Orders: Discharge Order (Routine); Ordered 09/10/19 Ordered By: Andrey Shukla DS: Diagnosis Discharge Diagnosis (1) Mixed stress and urge urinary incontinence: Status: Acute (2) Hx of bladder cancer: Status: Acute
--- NOTE | 2019-09-10 10:33 | ROE_ITS ---
Date of service: 09/10/19 Time of Service: 10:33 Operative Note Operative Note DATE OF PROCEDURE: 09/10/19 PRE-OP DIAGNOSIS: 1. Incontinence due to ISD 2. 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 She is due for surveillance cystoscopy. She also has a history of urinary incontinence. Her leakage can occur with minimal activity and is consistent with intrinsic sphincter deficiency. She presents for an injection of a bulking agent at the bladder neck. Findings: No bladder tumor Procedure Description: The patient was given a preoperative IV antibiotic and brought to the operating room on 09/10/2019. After successful induction of monitored anesthesia care, she was placed in the dorsal lithotomy position. Her genitalia was prepped and draped. A 20 Georgian urethrotome sheath was passed through the the urethra into the bladder. The bladder was inspected with a 30 degree lens. Both ureteral orifices appeared normal with no blood coming from either side. The remainder of the bladder was smooth-walled with no papillary or nodular lesions. These findings were confirmed on reinspection of the bladder with a 70 degree lens. We then passed an injection needle through the urethrotome sheath and proceeded to inject 1 vial of Coaptite submucosally at the bladder neck. The bladder mucosa closed nicely with the 1 injection site. The scope was then removed. The bladder was drained with a 16 Georgian catheter. The catheter was then removed. She tolerated the procedure well.
[2019-09-10 10:58] VITALS: BP 126/69; PULSE 64; RESP 16; TEMP 36.5; O2SAT 94
== END 2019-09-10 11:32 | disposition home or self-care (01) ==
PROVIDERS: PCP Nurse Practitioner Adult Health; Visit Provider Urology
PROC: (CPT 51715; principal; 2019-09-10 12:00)
DX: N36.42 Intrinsic sphincter deficiency (ISD) (principal); N39.3 Stress incontinence (female) (male); Z08 Encounter for follow-up examination after completed treatment for malignant neoplasm; Z85.51 Personal history of malignant neoplasm of bladder
CPT/HCPCS: 51715; J0690; L8606

== ENCOUNTER → 2019-09-22 12:33 | Outpatient (BNVA) | payer MEDICARE, MEDICAID, SELFPAY | PROVIDERS: PCP Nurse Practitioner Adult Health; Referring Provider Nurse Practitioner Adult Health; Visit Provider Nurse Practitioner Gerontology | DX: N39.46 Mixed incontinence (principal); I10 Essential (primary) hypertension | CPT/HCPCS: 99213 ==

== ENCOUNTER → 2019-10-20 09:20 | Outpatient (BNVA) | payer MEDICARE, MEDICAID, SELFPAY | PROVIDERS: PCP Nurse Practitioner Adult Health; Visit Provider Orthopaedic Surgery | DX: M18.11 Unilateral primary osteoarthritis of first carpometacarpal joint, right hand (principal); M18.12 Unilateral primary osteoarthritis of first carpometacarpal joint, left hand; Z11.59 Encounter for screening for other viral diseases | CPT/HCPCS: 99213 ==

== ENCOUNTER 2019-11-27 08:27 | Outpatient (CLI) | payer MEDICARE, MEDICAID, SELFPAY ==
[2019-11-28 14:58] LABS: COVID-19 RT-PCR Result NEGATIVE (Negative)
== END 2019-11-27 08:47 ==
PROVIDERS: PCP Nurse Practitioner Adult Health; Visit Provider Orthopaedic Surgery
DX: Z11.59 Encounter for screening for other viral diseases (principal); Z01.818 Encounter for other preprocedural examination
CPT/HCPCS: U0003

== ENCOUNTER 2019-11-30 06:05 | Day surgery (SDC) | payer MEDICARE, MEDICAID, SELFPAY ==
--- NOTE | 2019-11-26 11:10 | ANES_ITS ---
Date of service: 11/26/19 Time of Service: 11:11 Anesthesia Note Report Anesthesia Note: I reached out to Wendy today to discuss her upcoming surgery with us and her fitness to proceed due to a recent PCP visit which states that she has increasing SOB, a new murmur, and lower extremity edema. On discussion she states that she has had a murmur for a as long as she can recall. On further chart review, there is documentation of her murmur going back a few years, along with a few preop evaluations that state this. She also states that she has had CAIN for a long time, she does not feel that it is much worse. Her CAIN description today is consistent with previous notes that are in the chart. She states that her LE edema is very minimal today and has been improving in the past 24 hrs. Given the previously documented murmur and fairly stable CAIN pre the patient, she is okay to proceed for her surgery on Saturday. Anesthesia with [place] block was briefly discussed. She was also encouraged to do the follow up ECHO and PFTs that her PCP is requesting.
[2019-11-30 06:12] VITALS: PULSE 68; RESP 22; TEMP 36.5; O2SAT 93
[2019-11-30] MEDS: Lactated Ringers 1,000 ML 80 ML IV (06:51)
[2019-11-30] MEDS: ceFAZolin 1 GM/50 ML BAG IVPB (07:40)
--- NOTE | 2019-11-30 08:43 | PDOC.DSDIS_ITS ---
Discharge Plan Disposition Patient Disposition: HOME Condition: Good Discharge Details Reason For Visit: L TRAPEZIAL RESECTION ARTHROPLASTY Attending Provider: Ulises Heart Primary Care Provider: Laura Jenkins Home Meds and New Rx's Prescriptions: New hydrocodone-acetaminophen 5-325 mg tablet 1 tab PO Q6H PRN (Reason: pain) Qty: 7 RF: 0 Continued acetaminophen [Tylenol] 325 mg capsule 975 mg PO TID PRNRF: 0 triamcinolone acetonide 0.1 % cream 1 applic TP BID PRN (Reason: rash on LLE) Qty: 30 RF: 1 ergocalciferol (vitamin D2) 1,250 mcg (50,000 unit) capsule 1,250 mcg PO QWEEK Qty: 8 RF: 0 hydrocortisone 2.5 % cream 1 applic TP BID PRN (Reason: skin irritation) Qty: 20 RF: 0 omeprazole 20 mg capsule,delayed release(DR/EC) 20 mg PO DAILY Qty: 90 RF: 3 cholecalciferol (vitamin D3) 1,000 unit capsule 1,000 unit PO DAILY RF: 0 albuterol sulfate 90 mcg/actuation HFA aerosol inhaler See Rx Instructions IH Q4H PRN (Reason: Wheezing or cough) RF: 0 trazodone 50 mg tablet 150 mg PO HS Qty: 270 RF: 3 atorvastatin [Lipitor] 40 mg tablet 40 mg PO DAILY Qty: 90 RF: 3 lisinopril 20 mg tablet 20 mg PO DAILY Qty: 90 RF: 3 Myrbetriq 50 mg tablet extended release 24 hr 50 mg PO DAILY Qty: 90 RF: 3 amlodipine 2.5 mg tablet 2.5 mg PO DAILY Qty: 90 RF: 3 paroxetine HCl 40 mg tablet 60 mg PO QAM Qty: 135 RF: 3 loperamide 2 mg capsule 2 mg PO TID PRN (Reason: diarrhea) Qty: 60 RF: 3 gabapentin 800 mg tablet 800 mg PO TID Qty: 270 RF: 3 Discharge Instructions Additional Instructions: Elevate L hand above heart level as much as possible for next 48 hours to limit swelling. Wiggle fingers 10 times/hour to prevent swelling. Keep splint and dressings dry and in place until return. Cover with plastic bag sealed with large rubber band to shower. Follow up with in 2 weeks. Take tylenol or ibuprofen for mild pain. Take hydrocodone for breakthru pain, if needed. Referrals: Ulises Heart MD [ [facility] STAFF PHYSICIAN] - (f/u in 2 weeks.) Equipment/Supplies: Splint Activity:: Activity as Tolerated Remove Dressings/Wound Care:: Do Not Remove Shower/Bathe:: Cover Diet:: As Tolerated Discharge Orders Discharge Orders: Discharge Order (Routine); Ordered 11/30/19 Ordered By: Ulises Heart DS: Diagnosis Discharge Diagnosis (1) Arthritis of carpometacarpal (CMC) joint of left thumb: Status: Acute
[2019-11-30] MEDS: oxyCODONE-CR 10 MG TABCR PO (09:04)
[2019-11-30 09:19] VITALS: BP 139/68; PULSE 67; RESP 18; TEMP 36.1; O2SAT 96
--- NOTE | 2019-12-02 14:17 | ROE_ITS ---
Date of service: 11/30/19 Time of Service: 08:00 Operative Note Operative Note DATE OF PROCEDURE: 11/30/19 PRE-OP DIAGNOSIS: Osteoarthritis CMC joint left thumb POST-OP DIAGNOSIS: same PROCEDURE: Trapezial resection arthroplasty left. Application of short arm radial thumb spica splint. SURGEON: Ulises Heart REVOLVING FIELD ASSEMBLER: Dior Razo ANESTHESIA: regional COMPLICATIONS: None Patient was transported to: same day Patient's condition: stable Indications: This 69-year-old white female with several month history of persistent basilar thumb pain. X-rays confirmed CMC joint arthritis of the left thumb. She was initially treated conservatively with anti-inflammatory medications and splinting. She has now reached the point with the splinting is no longer alleviating her pain. Trapezial resection arthroplasty was recommended to alleviate her pain and restore better function to her left hand. Risk complications of procedure been explained to patient detail preop. Procedure Description: Patient taken the operating room on 11/30/2019 play supine operating table. IV regional anesthetic was administered to the left upper extremity. Once good anesthesia was obtained left hand wrist and forearm were prepped and draped free in usual sterile fashion. A short longitudinal incision was made beginning distal to the CMC joint of the left thumb and then carried distally to the scaphoid. Incision was positioned radial to the extensor tendons. Incision was carried down through the skin and subcutaneous tissues. Terminal branches of the superficial radial nerve were mobilized. Incision in the CMC joint capsule was made longitudinally radial to the extensor tendons. The base of the thumb metacarpal and the trapezium were then subperio steally exposed. Oscillating saw was then used to transect the trapezium about 1 to 2 mm distal to its articulation with the scaphoid. The distal osteotomy fragment was then vertically cut with the oscillating saw. A rongeur was used to remove the osteotomized fragments of the trapezium. This point the wound was irrigated with saline solution. The wound margins were infiltrated 0.5% Marcaine with epinephrine solution. The capsule of the MCP joint was then plicated with interrupted #1 Vicryl sutures. Tenodesis extensor tendon to the capsule was then performed with interrupted 2-0 Vicryl sutures. Care was taken to avoid over tightening the capsule. The skin and subcu was then approximated with a running subcuticular suture of 4-0 Vicryl suture material. This was supplemented by Steri-Strips and tissue glue. Wounds dressed with Xeroform gauze sterile gauze 4 x 4's and ABD pad and wrapped with a 4 inch Kerlix bandage. A short arm radial thumb spica fiberglass splint was fashioned and applied with a 3 inch Douglas bandage. Patient tolerated seizure well and had her IV regional anesthesia reversed without complications. She was discharged to recovery room in good condition. Patient was discharged home from day surgery unit and fully recovered from her IV regional anesthesia. She is given instructions to elevator left hand above follow-up as much as possible next 48 hours. She is to keep the splint and dressings dry and intact until she follows up with Dr. Heart in 2 weeks. Should take Tylenol or ibuprofen for mild pain. She is given prescription for breakthrough pain of hydrocodone with APAP 5/325 1 tab every 6 hours as needed.
== END 2019-11-30 09:45 | disposition home or self-care (01) ==
PROVIDERS: PCP Nurse Practitioner Adult Health; Visit Provider Orthopaedic Surgery
PROC: (CPT 25447; principal; 2019-11-30 07:30)
DX: M18.12 Unilateral primary osteoarthritis of first carpometacarpal joint, left hand (principal)
CPT/HCPCS: 25447; 25310; J0690; J2001

== ENCOUNTER → 2019-12-15 08:28 | Outpatient (BNVA) | payer MEDICARE, MEDICAID, SELFPAY | PROVIDERS: PCP Nurse Practitioner Adult Health; Referring Provider Nurse Practitioner Adult Health; Visit Provider Orthopaedic Surgery | DX: Z47.89 Encounter for other orthopedic aftercare (principal); M18.12 Unilateral primary osteoarthritis of first carpometacarpal joint, left hand; M18.11 Unilateral primary osteoarthritis of first carpometacarpal joint, right hand; I10 Essential (primary) hypertension ==

== ENCOUNTER 2020-01-05 10:05 | Outpatient (CLI) | payer MEDICARE, MEDICAID, SELFPAY ==
--- NOTE | 2020-01-05 09:15 | DI.RAD_ITS ---
EXAM: XR HIP RT COMPLETE AP PELVIS INDICATION: pain. COMPARISON: CR XR hip RT complete AP pelvis from 10/08/2018 TECHNIQUE: 2D digital imaging was performed. FINDINGS: There is a left total hip prosthesis, stable in appearance. The right hip joint space is well mainta ined. There is mild acetabular spurring. No soft tissue or joint space calcifications are seen arou nd the right hip. There is a calcification projecting superior to the pubic symphysis which is not s een on the previous exam and could represent a bladder calculus. The SI joints show moderate spurrin g. IMPRESSION: Minimal degenerative changes of the right hip. Question of bladder calcification. Ultrasound could be performed for further evaluation. DATA REPOSITORY: RADIATION DOSE DELIVERED:
== END 2020-01-05 10:25 ==
PROVIDERS: PCP Nurse Practitioner Adult Health; Referring Provider Nurse Practitioner Adult Health; Visit Provider Orthopaedic Surgery
DX: M16.11 Unilateral primary osteoarthritis, right hip (principal); M25.551 Pain in right hip; Z47.89 Encounter for other orthopedic aftercare; M18.12 Unilateral primary osteoarthritis of first carpometacarpal joint, left hand; M70.61 Trochanteric bursitis, right hip; I10 Essential (primary) hypertension
CPT/HCPCS: 99212; 73502

== ENCOUNTER 2020-03-17 21:53 | Outpatient (CLI) | payer OTHER, MEDICAID, SELFPAY ==
--- NOTE | 2020-03-17 09:45 | DI.RAD_ITS ---
EXAM: XR CHEST 2V PA LATERAL CLINICAL HISTORY: SOB R06.02, TECHNIQUE: 2D digital imaging was performed. COMPARISON: No exams were available for comparison FINDINGS: MEDIASTINUM: Normal. HEART: Normal. PULMONARY VASCULATURE: Normal. LUNGS: Clear. PLEURAL SPACE: No pleural effusion or pneumothorax. BONE:Within normal limits for the patient's age. OTHER FINDINGS:Normal. IMPRESSION: No acute pulmonary findings. DATA REPOSITORY: RADIATION DOSE DELIVERED:
== END 2020-03-17 21:54 | disposition home or self-care (01) ==
LOC: DI 03-21 21:56
PROVIDERS: PCP Nurse Practitioner Adult Health; Visit Provider Nurse Practitioner Adult Health
DX: R06.02 Shortness of breath (principal)
CPT/HCPCS: 71046

== ENCOUNTER 2020-03-22 02:03 | Outpatient (CLI) | payer OTHER, MEDICAID, SELFPAY ==
[2020-03-23 15:21] LABS: COVID-19 RT-PCR UVMMC Result Negative (Negative)
== END 2020-03-22 02:04 | disposition home or self-care (01) ==
LOC: LBO 02:04
PROVIDERS: PCP Nurse Practitioner Adult Health; Visit Provider Family Medicine
DX: R06.02 Shortness of breath (principal); Z20.822 Contact with and (suspected) exposure to COVID-19
CPT/HCPCS: U0003

== ENCOUNTER 2020-03-25 00:39 | Outpatient (CLI) | payer OTHER, MEDICAID, SELFPAY ==
[2020-03-25] MEDS: Albuterol HFA 18 GM 200 PUFF INH IH (09:00)
[2020-03-25] MEDS: Inhaler, Assist Device 1 EACH MC (09:01)
--- NOTE | 2020-03-28 08:15 | PFT_ITS ---
Date of service: 03/25/20 Time of Service: 08:00 Pulmonary Function Test Result Interpretation Spirometry: No evidence of obstructive airways disease, but there is significant bronchodilator response Lung Volumes: No evidence of restriction Diffusion Capacity: Mildly reduced which is normal when corrected to alveolar volume Airway Pressure: Normal Impression While there is no evidence of obstructive airways disease, there is significant bronchodilator response, this could be related to an better effort for postbronchodilator spirometry. The restrictive appearing pattern may be related to chest wall restriction, with very low ERV. This could be related to neuro muscular weakness versus chest wall deformity versus underlying obesity. TLC is normal.Therefore it is unlikely to be Related to restrictive lung disease Clinical Correlation therefore is recommended.
== END 2020-03-25 00:40 | disposition home or self-care (01) ==
LOC: RT 00:39
PROVIDERS: PCP Nurse Practitioner Adult Health; Visit Provider Nurse Practitioner Adult Health
DX: R06.02 Shortness of breath (principal); R06.09 Other forms of dyspnea; Z57.2 Occupational exposure to dust; Z86.15 Personal history of latent tuberculosis infection
CPT/HCPCS: 94060; 94726; 94729

== ENCOUNTER 2020-05-02 10:33 | Outpatient (CLI) | payer OTHER, MEDICAID, SELFPAY ==
--- NOTE | 2020-05-02 08:45 | DI.RAD_ITS ---
EXAM: XR HIP RT COMPLETE AP PELVIS CLINICAL HISTORY: right hip pain. TECHNIQUE: 2D digital imaging was performed. COMPARISON: CR XR HIP RT COMPLETE AP PELVIS from 01/05/2020 FINDINGS: Position alignment of the bones of the left hip prosthesis remain stable with no fracture or loosenin g. With respect of the right hip there is mild-moderate joint space narrowing. This has slightly increa sed when compared to 01/05/2020. There is a subtle cortical lucency in the immediate subtrochanteric region of the right hip which good sures approximately 1.6 x 1.5 cm and not exhibiting a sclerotic border. Possibly significant. IMPRESSION: Possible bone lesion in the right hip lower intertrochanteric-upper subtrochanteric region measuring 16 x 15 millimeters and not exhibiting sclerotic border. Recommend follow-up MRI. Mild-moderate right hip degenerative changes. Prosthesis in the opposite-left hip. DATA REPOSITORY: RADIATION DOSE DELIVERED:
== END 2020-05-02 10:34 | disposition home or self-care (01) ==
LOC: DIORS 10:33
PROVIDERS: PCP Nurse Practitioner Adult Health; Referring Provider Nurse Practitioner Adult Health; Visit Provider Student in an Organized Health Care Education/Training Program
DX: M16.11 Unilateral primary osteoarthritis, right hip (principal); M25.551 Pain in right hip; M70.61 Trochanteric bursitis, right hip; Z96.642 Presence of left artificial hip joint
CPT/HCPCS: 99213; 73502

== ENCOUNTER 2020-05-03 02:03 | Outpatient (CLI) | payer OTHER, MEDICAID, SELFPAY ==
--- NOTE | 2020-05-03 08:15 | DI.DEXA_ITS ---
EXAM: XR DEXA BONE DENSITY W/WO ROLAN CLINICAL HISTORY: post menopausal state; multiple fractures; h/o OSTEOPOROSIS, Z78.0,M81.0 TECHNIQUE: Routine DEXA evaluation of the lumbar spine, hip, or forearm. COMPARISON: No exams were available for comparison FINDINGS: Performed on a Hologic unit. Lateral image: No compression fracture evident. Lumbar Spine total T-score: -2.0 Hip total T-score:-0.2 Independent reading at the femoral neck level yields a T-score of -1.1 Forearm total T-score: -1.7 IMPRESSION: Bone mineral density measures in the osteopenia range. Fracture risk is moderate. Note: Any spine fracture indicates 5x risk for subsequent spine fracture and 2x risk for subsequent h ip fracture. World Health Organization criteria for BMD interpretation classify patients: Normal...... T- Score at or above -1.0 Osteopenic... T- Score between -1.0 and -2.5 Osteoporosis... T-Score at or below -2.5
== END 2020-05-03 02:23 ==
PROVIDERS: PCP Nurse Practitioner Adult Health; Visit Provider Nurse Practitioner Adult Health
DX: M85.89 Other specified disorders of bone density and structure, multiple sites (principal); Z78.0 Asymptomatic menopausal state
CPT/HCPCS: 77080

== ENCOUNTER 2020-05-17 01:53 | Outpatient (CLI) | payer OTHER, MEDICAID, SELFPAY ==
--- NOTE | 2020-05-17 07:45 | DI.MRI_ITS ---
EXAM: MR LOWER JOINT RT WO CLINICAL HISTORY: rt hip pain, trochanteric bursitis, m25.551,m70.61. TECHNIQUE: Multiplanar multisequence MRI was performed. COMPARISON: CR XR HIP RT COMPLETE AP PELVIS from 05/02/2020 FINDINGS: MR examination of the right hip was performed according to the usual protocol. Note is made of a total hip joint replacement in position on the left. The visualized intrapelvic soft tissues appear intact with no evidence pelvic adenopathy or mass. Gy n structures appear intact as visualized. Bones: Left hip prosthesis as noted above. There is a serpiginous focus of abnormal signal in right femoral meta diaphysis suggesting an old bon e infarct. There are multiple small sub chondral rounded areas of abnormal signal in the right femor al head consistent with early degenerative cyst formation. Cartilaginous joint space of the hip appe ars narrowed. No definite labral tear seen. Minimal right hip joint effusion noted. Requisition raises the possibility of trochanteric bursitis. Note is made of abnormal signal in the distal aspect of the gluteus minimus, gluteus medius, and gluteus jacklyn tendons with some probable longitudinal tearing of the gluteus minimus and gluteus jacklyn, seen most clearly on coronal PD fat- sat imaging.. No full-thickness tear is identified. No significant bursal fluid collection seen. The IT band appears intact. No other tendinous or ligamentous signal abnormality identified in the region of the hip. Visualized portions of the SI joints appear intact bilaterally. IMPRESSION: Mild degenerative changes of the right hip. There are findings suggesting tendinosis and minimal longitudinal tearing involving the gluteal muscu lature as described above. No full-thickness tear identified. DATA REPOSITORY:
== END 2020-05-17 02:13 ==
PROVIDERS: PCP Nurse Practitioner Adult Health; Visit Provider Student in an Organized Health Care Education/Training Program
DX: M25.551 Pain in right hip (principal); M70.61 Trochanteric bursitis, right hip; M16.11 Unilateral primary osteoarthritis, right hip
CPT/HCPCS: 73721

== ENCOUNTER → 2020-05-20 09:32 | Outpatient (BNVA) | payer OTHER, MEDICAID, SELFPAY | PROVIDERS: PCP Nurse Practitioner Adult Health; Referring Provider Nurse Practitioner Adult Health; Visit Provider Student in an Organized Health Care Education/Training Program | DX: M16.11 Unilateral primary osteoarthritis, right hip (principal) | CPT/HCPCS: 99213 ==

== ENCOUNTER 2020-06-06 04:12 | Outpatient (CLI) | payer OTHER, MEDICAID, SELFPAY ==
[2020-06-06 11:07] LABS: HCT 43.4 % (36.0-46.0); HGB 14.5 g/dL (11.2-15.7); MCH 35.5 pg (27.0-33.0); MCHC 33.4 % (32.0-36.0); MCV 106.4 fL (80-95); MPV 9.4 fL (8.0-11.0); Platelet Count 161 10^3/uL (130-400); RBC 4.08 10^6/uL (3.93-5.22); RDW-SD 47.3 fL; WBC 5.01 10^3/uL (4.4-10.8)
[2020-06-06 11:38] LABS: BUN 15 mg/dL (7-18); CREATININE 0.8 mg/dL (0.55-1.02); Calcium 8.7 mg/dL (8.5-10.1); Chloride 105 mmol/L (98-107); Glucose 98 mg/dL (74-106); Potassium 4.2 mmol/L (3.5-5.1); Sodium 142 mmol/L (136-145)
[2020-06-06 11:40] LABS: Source Nasal/Nares
[2020-06-06 18:17] LABS: COVID-19 PCR Negative (Negative)
== END 2020-06-06 04:13 | disposition home or self-care (01) ==
LOC: LBO 04:12
PROVIDERS: PCP Nurse Practitioner Adult Health; Visit Provider Student in an Organized Health Care Education/Training Program
DX: M25.551 Pain in right hip (principal); M16.11 Unilateral primary osteoarthritis, right hip; Z20.822 Contact with and (suspected) exposure to COVID-19; Z01.818 Encounter for other preprocedural examination; Z01.812 Encounter for preprocedural laboratory examination
CPT/HCPCS: 36415; 80048; 85027; 86850; 86900; 86901; 87635

== ENCOUNTER 2020-06-07 09:20 | Day surgery (SDC) | payer OTHER, MEDICAID, SELFPAY ==
[2020-06-07] VITALS (9 sets, daily range): BP systolic 130–159; BP diastolic 70–93; PULSE 71–99; RESP 14–24; TEMP 36.3–36.6; O2SAT 89–94; BMI 31.1
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
[2020-06-07] MEDS: Acetaminophen 500 MG TAB 1000 MG PO (10:27)
[2020-06-07] MEDS: Celecoxib 200 MG CAP 400 MG PO (10:28)
[2020-06-07] MEDS: Lactated Ringers 1,000 ML 80 ML IV (10:35)
[2020-06-07] MEDS: ceFAZolin 2 GM/50 ML BAG IVPB (11:48)
[2020-06-07] MEDS: Bupivacaine 0.25% Pres-Free 30 ML VIAL (12:52)
[2020-06-07] MEDS: Ketorolac 30 MG/ML VIAL (12:53)
--- NOTE | 2020-06-07 12:54 | DI.RAD_ITS ---
EXAM: XR HIP RT IN OR CLINICAL HISTORY: OSTEOARTHRITIS RIGHT HIP/ CHAIM TECHNIQUE: 2D and realtime digital imaging was performed. CONTRAST MATERIAL: Refer to procedure report. COMPARISON: No exams were available for comparison FINDINGS: Fluoroscopy was provided for Dr. Odom during the performance of a right total hip arthroplasty. Please refer to the procedure report for complete details. Ka,r=4.01 mGy IMPRESSION: RADIATION DOSE DELIVERED:
--- NOTE | 2020-06-07 13:42 | W.PM.DSUDISC ---
Documented by User: MELO Ellison 06/07/20 13:51 Discharge Plan Disposition Patient Disposition: HOME Condition: Good Discharge Details Reason For Visit: Right CHAIM Attending Provider: Alexis Odom Primary Care Provider: Laura Jenkins Home Meds and New Rx's Prescriptions: New acetaminophen 500 mg capsule 1,000 mg PO Q8H PRN PRNQty: 90 RF: 0 aspirin 81 mg tablet,delayed release (DR/EC) 81 mg PO BID Qty: 60 RF: 0 celecoxib 200 mg capsule 200 mg PO BID Qty: 60 RF: 0 oxycodone 5 mg capsule 5 mg PO Q4H PRNQty: 20 RF: 0 Continued triamcinolone acetonide 0.1 % cream 1 applic TP BID PRN (Reason: rash on LLE) Qty: 30 RF: 1 cholecalciferol (vitamin D3) 50 mcg (2,000 unit) capsule 50 mcg PO DAILY Qty: 90 RF: 3 albuterol sulfate 90 mcg/actuation HFA aerosol inhaler See Rx Instructions IH Q4H PRN (Reason: Wheezing or cough) Qty: 8.5 RF: 0 diclofenac sodium [Arthritis Pain (diclofenac)] 1 % gel 2 g topical BID PRN (Reason: hand arthritis) Qty: 50 RF: 0 lidocaine 5 % adhesive patch,medicated 1 patch topical DAILY PRN (Reason: neck pain, back pain) Qty: 30 RF: 0 hydrocortisone 2.5 % cream 1 applic TP BID PRN (Reason: skin irritation) Qty: 20 RF: 0 omeprazole 20 mg capsule,delayed release(DR/EC) 20 mg PO DAILY Qty: 90 RF: 3 ergocalciferol (vitamin D2) 1,250 mcg (50,000 unit) capsule 1,250 mcg PO QWEEK Qty: 8 RF: 0 atorvastatin [Lipitor] 40 mg tablet 40 mg PO DAILY Qty: 90 RF: 3 lisinopril 20 mg tablet 20 mg PO DAILY Qty: 90 RF: 3 amlodipine 2.5 mg tablet 2.5 mg PO DAILY Qty: 90 RF: 3 gabapentin 800 mg tablet 800 mg PO TID Qty: 270 RF: 3 Myrbetriq 50 mg tablet extended release 24 hr 50 mg PO DAILY Qty: 90 RF: 3 loperamide 2 mg capsule 2 mg PO DAILY PRNRF: 0 trazodone 50 mg tablet 150 mg PO HS Qty: 270 RF: 3 paroxetine HCl 40 mg tablet 60 mg PO QAM Qty: 135 RF: 3 Discontinued acetaminophen [Tylenol] 325 mg capsule 975 mg PO TID PRNRF: 0 Discharge Instructions Additional Instructions: Total Hip Discharge Instructions Activity: The most important activity is to walk. You should try to take short walks a few times a day. You have no restrictions on movement or positioning, but do not try to force what you do. You will find some stiffness and weakness with hip flexion (lifting your knee). Do not try to strengthen this too early, continue to practice walking and stairs and this will come. - Outpatient physical therapy can be helpful to help return you to a normal gait and improve your flexibility and strength. This can start around 2 weeks. For some patients, it?s not necessary. Usually this is determined at the time of discharge or at the first post-operative visit. - You should wear the ESTELITA hose on both legs for 2 weeks. Dressing: Keep the surgical dressing in place for at least one week. After the first week it may be removed and replace with light gauze and tape or nothing. It may get wet after 3 days but avoid soaking the dressing. If it gets wet, just lightly pat dry. It is important to always keep some gauze between skin folds, especially when you are sitting. Spend some time with the wound exposed when you are lying flat as the incision does wrinkle onto itself. Medications: - You should take Tylenol and an anti-inflammatory Celebrex as your primary pain control medications. If the Celebrex is too expensive or not covered, please call the office for another alternative (Advil/Ibuprofen or Naproxen/Aleve). - You have been prescribed a stronger pain medication Oxycodone for breakthrough pain, take as needed as prescribed. - You will be taking Aspirin 81mg twice a day for DVT prevention unless instructed otherwise. - If you have constipation you should take Colace or Miralax (both [id number]). It takes most people 3-4 days to have a bowel movement. Follow-up: 2 weeks If you have any acute concerns or questions, please do not hesitate to contact the office at [phone]. You may contact Dr. Odom with any questions after hours through the hospital at [phone] or on his cell phone at [phone]. Stand Alone Forms: Anesthesia Discharge Inst., Carlies.Nerve Block Instructions Referrals: Alexis Odom MD [ [facility] STAFF PHYSICIAN] - 06/23/20 9:30 am Equipment/Supplies: Walker Activity:: Activity as Tolerated Shower/Bathe:: Cover Diet:: As Tolerated Discharge Orders Discharge Orders: Discharge Order (Routine); Ordered 06/07/20 Ordered By: Alexis Odom DS: Diagnosis Discharge Diagnosis (1) Primary localized osteoarthritis of right hip: Status: Acute Documented by User: Alexis Odom MD 06/07/20 14:35 Discharge Plan Disposition Patient Disposition: HOME Condition: Good Discharge Details Reason For Visit: Right CHAIM Attending Provider: Alexis Odom Primary Care Provider: Laura Jenkins Home Meds and New Rx's Prescriptions: New acetaminophen 500 mg capsule 1,000 mg PO Q8H PRN PRNQty: 90 RF: 0 aspirin 81 mg tablet,delayed release (DR/EC) 81 mg PO BID Qty: 60 RF: 0 celecoxib 200 mg capsule 200 mg PO BID Qty: 60 RF: 0 oxycodone 5 mg capsule 5 mg PO Q4H PRNQty: 20 RF: 0 Continued triamcinolone acetonide 0.1 % cream 1 applic TP BID PRN (Reason: rash on LLE) Qty: 30 RF: 1 cholecalciferol (vitamin D3) 50 mcg (2,000 unit) capsule 50 mcg PO DAILY Qty: 90 RF: 3 albuterol sulfate 90 mcg/actuation HFA aerosol inhaler See Rx Instructions IH Q4H PRN (Reason: Wheezing or cough) Qty: 8.5 RF: 0 diclofenac sodium [Arthritis Pain (diclofenac)] 1 % gel 2 g topical BID PRN (Reason: hand arthritis) Qty: 50 RF: 0 lidocaine 5 % adhesive patch,medicated 1 patch topical DAILY PRN (Reason: neck pain, back pain) Qty: 30 RF: 0 hydrocortisone 2.5 % cream 1 applic TP BID PRN (Reason: skin irritation) Qty: 20 RF: 0 omeprazole 20 mg capsule,delayed release(DR/EC) 20 mg PO DAILY Qty: 90 RF: 3 ergocalciferol (vitamin D2) 1,250 mcg (50,000 unit) capsule 1,250 mcg PO QWEEK Qty: 8 RF: 0 atorvastatin [Lipitor] 40 mg tablet 40 mg PO DAILY Qty: 90 RF: 3 lisinopril 20 mg tablet 20 mg PO DAILY Qty: 90 RF: 3 amlodipine 2.5 mg tablet 2.5 mg PO DAILY Qty: 90 RF: 3 gabapentin 800 mg tablet 800 mg PO TID Qty: 270 RF: 3 Myrbetriq 50 mg tablet extended release 24 hr 50 mg PO DAILY Qty: 90 RF: 3 loperamide 2 mg capsule 2 mg PO DAILY PRNRF: 0 trazodone 50 mg tablet 150 mg PO HS Qty: 270 RF: 3 paroxetine HCl 40 mg tablet 60 mg PO QAM Qty: 135 RF: 3 Discontinued acetaminophen [Tylenol] 325 mg capsule 975 mg PO TID PRNRF: 0 Discharge Instructions Additional Instructions: Total Hip Discharge Instructions Activity: The most important activity is to walk. You should try to take short walks a few times a day. You have no restrictions on movement or positioning, but do not try to force what you do. You will find some stiffness and weakness with hip flexion (lifting your knee). Do not try to strengthen this too early, continue to practice walking and stairs and this will come. - Outpatient physical therapy can be helpful to help return you to a normal gait and improve your flexibility and strength. This can start around 2 weeks. For some patients, it?s not necessary. Usually this is determined at the time of discharge or at the first post-operative visit. - You should wear the ESTELITA hose on both legs for 2 weeks. Dressing: Keep the surgical dressing in place for at least one week. After the first week it may be removed and replace with light gauze and tape or nothing. It may get wet after 3 days but avoid soaking the dressing. If it gets wet, just lightly pat dry. It is important to always keep some gauze between skin folds, especially when you are sitting. Spend some time with the wound exposed when you are lying flat as the incision does wrinkle onto itself. Medications: - You should take Tylenol and an anti-inflammatory Celebrex as your primary pain control medications. If the Celebrex is too expensive or not covered, please call the office for another alternative (Advil/Ibuprofen or Naproxen/Aleve). - You have been prescribed a stronger pain medication Oxycodone for breakthrough pain, take as needed as prescribed. - You will be taking Aspirin 81mg twice a day for DVT prevention unless instructed otherwise. - If you have constipation you should take Colace or Miralax (both [id number]). It takes most people 3-4 days to have a bowel movement. Follow-up: 2 weeks If you have any acute concerns or questions, please do not hesitate to contact the office at [phone]. You may contact Dr. Odom with any questions after hours through the hospital at [phone] or on his cell phone at [phone]. Stand Alone Forms: Anesthesia Discharge Inst., Anes.Nerve Block Instructions Referrals: Alexis Odom MD [ [facility] STAFF PHYSICIAN] - 06/23/20 9:30 am Equipment/Supplies: Walker Activity:: Activity as Tolerated Shower/Bathe:: Cover Diet:: As Tolerated Discharge Orders Discharge Orders: Discharge Order (Routine); Ordered 06/07/20 Ordered By: Alexis Odom
--- NOTE | 2020-06-07 13:47 | W.ANESPOSTOP ---
Postoperative Evaluation Date, Time and Location Date Performed: 06/07/20 Time Performed: 13:48 Patient Location: PACU Vital Signs Most Recent Imported Vital Signs: Most Recent Vital Signs Temp Pulse Resp BP Pulse Ox 36.3 C L 71 18 134/83 94 06/07/20 13:38 06/07/20 13:38 06/07/20 13:38 06/07/20 13:38 06/07/20 13:38 Assessment Mental Status: Awake (Alert & Oriented to Patient Baseline) Airway and Respiratory Function: Patent airway with normal (patient baseline) respiratory exam Cardiovascular Function: Hemodynamically Stable Hydration Status: Adequately Hydrated Nausea & Vomiting: No Nausea or Vomiting Pain: Pt. Denies Any Pain Peripheral Nerve Block: Patient did not receive a nerve block
[2020-06-07] MEDS: HYDROmorphone 2 MG/ML VIAL IVP ×2 (13:51→14:22)
[2020-06-07] MEDS: Normal Saline Flush 10 ML SYR IV (13:52)
[2020-06-07] MEDS: oxyCODONE 5 MG TAB PO (14:54)
--- NOTE | 2020-06-07 15:02 | W.ANESPOSTOP ---
Postoperative Evaluation Date, Time and Location Date Performed: 06/07/20 Time Performed: 15:02 Patient Location: Day Surgery Unit Vital Signs Most Recent Imported Vital Signs: Most Recent Vital Signs Temp Pulse Resp BP Pulse Ox 36.5 C 86 18 155/93 H 93 06/07/20 14:55 06/07/20 14:55 06/07/20 14:55 06/07/20 14:55 06/07/20 14:55 Most Recent Vital Signs Temp Pulse Resp BP Pulse Ox 36.3 C L 71 18 134/83 94 06/07/20 13:38 06/07/20 13:38 06/07/20 13:38 06/07/20 13:38 06/07/20 13:38 Pain Score Most Recent Pain Score: Most Recent Pain Score Pain Level 2 06/07/20 14:55 Assessment Mental Status: Awake (Alert & Oriented to Patient Baseline) Airway and Respiratory Function: Patent airway with normal (patient baseline) respiratory exam Cardiovascular Function: Hemodynamically Stable Hydration Status: Adequately Hydrated Nausea & Vomiting: No Nausea or Vomiting Pain: Pt. Denies Any Pain Peripheral Nerve Block: Regional nerve block not resolved at time of post operative discharge
--- NOTE | 2020-06-07 15:20 | IN_ITS ---
Date of service: 06/07/20 Time of Service: 15:20 PT Notes Visit Reasons: Right [facility] Physical Therapy Day Surgery Initial Evaluation Date: 06/07/2020 Referring Doctor: MELO Ellison PT Orders: PT CONSULT: Eval/treat. Status post Ortho surgery. Precautions: WBAT on right LE with AD. Patient Profile/Admitting Diagnosis: Wendy is a 69-year-old female with primary unilateral osteoarthritis of the right hip and is status post anterior total hip arthroplasty on postoperative day 0. PMHX: Medical History Arthritis of carpometacarpal (CMC) joint of left thumb s/p trapezial resection 11/30/2019 Arthritis of carpometacarpal (CMC) joint of right thumb Arthritis of left acromioclavicular joint Arthrosis of shoulder Bilateral dry eyes Cervical spondylosis without myelopathy Chronic shortness of breath PFTs essentially normal 2020 with significant bronchodilator response; normal CXR; RX Albuterol; due to occ exposure Kevlar? Closed fracture of right distal fibula (11/07/18) Depression Elevated bilirubin Fibromyalgia Fracture of phalanx of right foot, closed (11/07/18) GERD (gastroesophageal reflux disease) RX Omeprazole s/p upper 2019 endoscopy with findings c/w gastritis, d uodenitis and possible soriano's esophagus Hx of bladder cancer Urology/[facility]: history of papillary urothelial neoplasm of low malignancy. q2y cystoscopy, last 2019. Hx of tuberculosis Hypercholesterolemia Hypertension Incontinence of feces Iron deficiency Left rotator cuff tear Macrocytosis without anemia Osteoarthritis of left AC (acromioclavicular) joint Osteopenia determined by x-ray DEXA 2020; supplemental Vit D Primary osteoarthritis involving multiple joints Skin lesion of right ear Trochanteric bursitis Ulnar neuropathy at elbow Vitamin D deficiency Surgical History History of carpal tunnel release History of elbow surgery History of Sarika fundoplication History of total bilateral knee replacement (TKR) History of total left hip arthroplasty (~04/2016) Hx of cholecystectomy Social History/Home Situation: Lives alone in an apartment complex with 2 steps to enter with a rail on the right side. Ex and daughter will provide needed support as she recovers at home. Receives Meals on Wheels on a daily basis. Still drives. Equipment Owned/DME: None Subjective: Agreeable to PT consult. Reports 2?3/10 pain at rest and in the right hip. Denies headache, pain, and dizziness throughout. Indicates that she has had 2 falls in the past year. Reports feeling some crackling in the R hip t hat is not accompanied by pain early in the walking. Did not report any kind of instability and was able to complete a mobility assessment. Objective: General Observation: Supine on stretcher. Mepilex Ag over surgical incision. TEDS on bilateral legs. Spontaneous horizontal left beating nystagmus observed. Mental Status: Alert and oriented x4 Pain: 2-3/10 at rest 3-4/10 with movement in the right hip ROM: Right Lower Extremity: Hip flexion lacks the last 15 degrees of movement due to discomfort. Hip abduction WFL. Knee flexion WFL. Ankle dorsiflexion WFL. Ankle plantarflexion WFL. Left Lower Extremity: Hip flexion WFL. Hip abduction WFL. Knee flexion WFL. Ankle dorsiflexion WFL. Ankle plantarflexion WFL. Strength: Right Lower Extremity: Hip flexors 3 - /5. Hip abductors 4 /5. Knee flexors 4 /5. Knee extensors 4 /5. Ankle dorsiflexors 4/5. Ankle plantarflexors 4/5. Left Lower Extremity:Hip flexors 4/5. Hip abductors 4/5. Knee flexors 4/5. Knee extensors 4/5. Ankle dorsiflexors 4/5. Ankle plantarflexors 4/5. Sensation: Intact as to pain and light pressure in bilateral lower extremities Bed Mobility/Transfers: Supine to sit supervision Sit to stand supervision Stand to sit standby assist Bed to chair standby assist Gait: Tolerated level surface ambulation of 150 feet using the front wheeled walker with step to gait pattern requiring standby assist and minimal verbal c ueing for correct gait pattern and walker management. Reported some crackling sensation in the right hip that is not accompanied by pain during the first 10 feet of walking. No LOB. No sense of instability reported throughout. Stairs: Tolerated up-and-down three 4 inch steps and two 6 inch steps while holding onto 1 rail with 1 hand and using a single-point cane with the other hand with step-to gait pattern requiring minimal verbal cueing for correct strategy and overall safety. Reported 3-4/10 pain in the right hip after activity. Balance: Static Sitting: Normal Dynamic Sitting: Normal Static Standing: Fair Dynamic Standing: Fair Special Tests: Mobility Limitations Standardized Measure [facility] AM-PAC 6 clicks Basic Mobility Inpatient Short Form: Raw Score: 18 CMS Score: 47% deficit Informed Consent/Education: Patient instructed in purpose of PT consult. Packet containing CHAIM exercise protocol has been given to patient. Education and training on initial set of exercises that can be done at home have been completed with patient. Assessment: Wendy requires the use of of a front wheeled walker to maximize independence and reduce fall risk at home. She will have a support of her ex- and her daughter as she recovers at home. She will benefit from outpatient PT services in order to achieve highest functional independence. Patient presents with clinical signs and symptoms consistent with current/admitting diagnoses that have resulted to mobility limitations, gait instability, generalized weakness, and impairment of motor control as demonstrated by the following impairment level findings: 1. Decreased strength to l right hip major muscle groups 2. Impaired standing balance 3. Limitation of joint range of motion in right hip Impairments are contributing to the following functional limitations: 1. Inability to safely ambulate without assistive device 2. Increase completion time for mobility ADL performance 3. Increased fall risk Patient is assessed as a 31352 moderate complexity based on the following: History: 69-year-old female with impairment level findings, functional limitations, and past medical history as indicated above Examination: Demonstrable impairment in strength, balance, and mobility level with underlying impairments and functional limitations as documented above Presentation: Evolving Decision Makin moderate complexity Goals: N/A. PT evaluation and 1-2 treatment sessions only for functional mobility training using recommended AD and for HEP instruction. Plan of Care/Treatment Plan: N/A. PT evaluation and 1-2 treatment session only for functional mobility training using recommended AD and for HEP instruction. DISCHARGE RECOMMENDATIONS: Home when medically cleared by orthopedic surgeon. Outpatient PT services in order to achieve highest functional independence. Will benefit from the use of a front wheel walker at home. TREATMENT CODE/TIME: 96497 x 25 minutes, 84173 x 29 minutes beginning at 15:20 PM. Thank you for the opportunity to participate in the care of this patient. Janelle Mann PT, DPT, CLT [facility], [place]
--- NOTE | 2020-06-07 21:45 | W.PM.OP ---
Date of service: 06/07/20 Time of Service: 13:10 Operative Note Operative Note DATE OF PROCEDURE: 06/07/20 PRE-OP DIAGNOSIS: Right Hip Osteoarthritis POST-OP DIAGNOSIS: same PROCEDURE: Right Anterior Total Hip Arthroplasty SURGEON: Alexis Odom ANESTHESIA TYPE: Spinal Refer to Anesthesia Record ESTIMATED BLOOD LOSS: 200 PATHOLOGY: none sent TOURNIQUET TIME: 0 COMPLICATIONS: Other (Stable crack of posterior calcar not propagating distal to intertrochanteric ridge) Patient was transported to: PACU Patient's condition: stable Implants: 1. Depuy [place] Acetabular Component, 48mm 2. Depuy Acetabular Liner, 66m91my 3. Depuy Corail Standard 125 Collared Femoral Stem, Size 9 4. Depuy Altrx Ceramic Femoral Head, Size 32+5mm Indications: I have seen Wendy in clinic for symptoms of hip arthritis, confirmed with radiographic findings. She has exhausted nonoperative methods and was having significant limitations in daily function and desired better function and less pain. She had a previously successful replacement of the left hip. I discussed the technical details of a hip replacement. I explained the risks of the procedure to include, but not limited to, bleeding, infection, pain, stiffness, fracture, damage to nerves and vessels, damage to muscles and tendons, loosening, instability, leg length inequality, need for repeat procedure, blood clot and cardiopulmonary demise. Despite these risks, Wendy elected to proceed. Findings: There was significant signs of arthritis throughout the hip. Procedure Description: Wendy was greeted in the preoperative holding area where the correct side was identified and marked. The consent was reviewed with the patient and signed. The history and physical was updated. All questions were answered. She was taken back to the operating room. A spinal anesthestic was then administered. The feet were wrapped with cast padding and Coban and then placed into the boot liners and then into the boots. Care was taken to protect the skin and make sure the heels were fully down and the boots were stable. The patient was then positioned onto the HANA table. Both legs were held in a neutral position. SCDs were applied. The patient was then slid down onto a peroneal post. Prophylactic antibiotics in the form of Cefazolin were administered. 1g of Tranxemic Acid was given intravenously within 30 minutes of incision. The right leg was then prepped with Chloraprep and draped in a standard fashion. A second prep with Chloraprep was performed prior to placement of a shower-curtain type drape with Iodine impregnated skin protection. A timeout to confirm correct identity, side and site, procedure, allergies, anesthesia, and medical concerns was performed. An obliquely oriented incision was made starting lateral to the ASIS and running distal over the Tensor Fascia Ivy (TFL) muscle belly toward the fibular head, approximately 10cm. The skin and soft tissue was dissected sharply, through Yoli?s fascia, and to the fascia of the TFL. With the fascia and superior border of the IT band identified, the fascia was incised with a new knife just above any perforators from the IT band. The TFL muscle belly was bluntly dissected away from the fascia and moved laterally. The fat between TFL and rectus was identified to ensure the dissection was not within the TFL. Blunt dissection created space between abductors and the capsule and retractor was placed over the lateral femoral neck. The fibers of the rectus femoris tendon were identified and these were freed from the anterior capsule. A second cobra retractor was placed around the medial femoral neck. The TFL was further retracted laterally to show the deep fascia. Careful dissection through this layer identified three main crossing vessels of the lateral femoral circumflex. These were cauterized in multiple locations and then cut without any noticeable bleeding. The TFL was further released bluntly from the deep fascia to expose anterior hip capsule and fat The Lamine orthopaedic retractor was then placed beneath the TFL and against sartorius and medial soft tissues to protect and retract the soft tissues. A T-capsulotomy was then performed starting at the superior lateral acetabulum and moving distally to the intertrochanteric ridge. These capsular flaps were tagged with a No. 1 Ethibond and elevated from within. The capsular flaps were released to the shoulder of the lateral neck and to the lesser trochanter to give excellent visualization of the proximal femur. A neck osteotomy was performed using an oscillating saw based on preoperative templates. This cut started in the shoulder and of the lateral neck and exited medially. The saw was at all times directed medially to avoid injury to the greater trochanter. Gross traction was applied to the leg and the osteotomy opened. The femoral head was removed with a corkscrew, making sure to protect the TFL on its exit. Traction was released after head removal. This was measured on the back table to determine the starting reamer size. Portions of the rectus obscuring visualization were minimally elevated off the superior acetabulum. An anterior retractor was placed over the anterior wall between capsule and labrum and attached to the Gripper retraction system. The femur was rotated to 90 degrees and medial capsule was fully released until the lesser trochanter was palpable and visible; the femur was returned to 30 degrees. A posterior retractor was placed similarly between capsule and labrum. This provided excellent visualization. The contents of the cotyloid fossa were removed with electrocautery and the labrum was removed with a knife. There was significant chondromalacia of the superior acetabulum. Acetabular reaming began with a 43mm reamer. This first reaming was directed anterior to posterior and medial to get down to the true floor. This was inspected and reamed until the true floor was reached. The anterior retractor was then released and entry and exit was provided by traction on the capsular flaps. I then reamed sequentially up to a 48mm reamer where good fit was obtained. The larger reamers were oriented based on anatomical reference of the anterior and lateral vargas to ensure proper abduction and anteversion. Positioning and size was confirmed with the fluoroscopy. A 48mm Depuy [place] acetabular component was selected. The deep tissues were irrigated. The acetabular component was then impacted in a position of about 40-45 degrees of abduction and 15-20 degrees of anteversion, using the patient?s anatomy as the ultimate landmark. Fluoroscopy was used to confirm this. There was excellent long chain quiller tender of the acetabular component and the inserting handle was removed. The acetabular liner, Depuy [id number] polyethylene liner, was inserted and lined up with the tines of the acetabular component. There was no soft tissue interposition. The liner was then impacted into position and confirmed to be well-seated. A portion of the dottie-articular cocktail was then injected around the acetabulum into the capsule and periosteum. This cocktail consisted of 50cc of 0.25% Bupivicaine and 20cc of Exparel and 30mg of Ketorolac. The leg was rotated to 120 degrees. Any remaining medial capsule was released until the lesser trochanter was easily palpable. A retractor was placed medially. The lateral capsule was further released into the shoulder to allow access to the greater trochanter. A Carpenter retractor was placed over the greater trochanter which allowed the trochanter to flip in front of the capsule for excellent exposure. The leg was brought down into maximal extension and 20 degrees of adduction while ensuring there was no impingement on the acetabulum. Any remnant capsule within the trochanter was released. Piriformis and obturator externis were identified and protected. There was excellent access to the proximal femur. The lateral neck remnant was removed with a rongeur. A blunt canal probe was used to identify the canal and trajectory for later broaching. A box osteotome initiated the broach course. A small curved rasp and a curved curette were used to work laterally. Broaching then began with a size 8 Corail broach. This was inserted manually around the trochanter and into the canal before mallet blows. The broach was seated to [a few millimeters below the cut level] based on the neck cut and the preoperative template. Sequential broaching was continued with the [employer] pneumatic broaching device until a tight fit was obtained with good rotational control of the femur. During the broaching process, a small crack was seen in the posterior femoral neck cortex. Broaching was paused and this crack was inspected. The medial calcar was intact and this was posterior and was not able to be moved. Using a freer I was unable to mobilize the fragment and the crack which was visible ended at the intertrochanteric ridge, thus deemd to be a stable fracture. I then continued with manual broaching. There was no significant displacement of the crack during the final broaching. The size 9 stem had excellent fixation and this was trialed. A trial standard 125 neck was inserted along with a +5 trial head. The leg was brought out of extension and adduction and then reduced with traction and internal rotation. The leg was stable anteriorly in a position of 30 degrees of extension and 90 degrees of external rotation. Fluoroscopy was used to ensure there was no fracture and the stem was seated well. Leg lengths were checked with an AP pelvis and pelvic reference points. hipix navigation system was used to confirm appropriate positioning and leg length and offset. This system confirmed appropriate leg length and offset. I also inspected the x-ray and there was no sign of fracture. Additionally, the stem was in appropriate position. Once content with the desired offset and leg lengths, the leg was brought back into extension, external rotation and adduction. The periosteum and surrounding tissue was injected with remaining portion of the dottie-articular cocktail. The proximal femur was irrigated as well as the deep tissues. The Depuy Corail standard 125 collared stem, size 9, was then manually inserted into the proximal femur making sure to control rotation. It was then malleted into position with light blows, giving breaks to allow bone expansion and decrease risk of fracture. The selected Depuy Altrx Ceramic Head, size 32+5mm, was then placed onto the clean and dry trunnion and secured with impaction onto the tapered fit. The leg was brought back out of extension and adduction and reduced with traction and internal rotation. Stability was confirmed with no shuck at 90 degrees of external rotation and 30 degrees of extension. No impingement through range of motion arc. Final x-ray images were obtained with fluoroscopy to confirm adequate positioning and no intraoperative fracture visibly but there was the previously noted intraoperative fracture. The deep tissues were thoroughly irrigated with Irrisept chlorhexadine solution. The capsule was then reapproximated with the previously placed Ethibond sutures. The TFL fascia was finally closed with a No. 2 Stratafix, barbed suture. Deep tissues were then reapproximated with 0 Vicryl and a running 2-0 Vicryl. The skin was closed with a running 4-0 Monocryl in a subcuticular fashion. This was reinforced with skin glue. A Mepilex silver dressing was applied. At the end of the case, all counts were correct. Wendy was transferred to the stretcher without difficulty and suffering the stable fracture of the posterior calcar which will have no bearing on post-operative protocols. Wendy has a good prognosis. Physical therapy will start today and without restrictions, weight-bearing as tolerated. Aspirin 81mg BID will be used for DVT prophylaxis.
== END 2020-06-07 16:43 | disposition home or self-care (01) ==
PROVIDERS: PCP Nurse Practitioner Adult Health; Visit Provider Student in an Organized Health Care Education/Training Program
PROC: (CPT 27130; principal; 2020-06-07 12:45)
DX: M16.11 Unilateral primary osteoarthritis, right hip (principal); Z96.641 Presence of right artificial hip joint; M25.551 Pain in right hip; Z96.642 Presence of left artificial hip joint; M96.661 Fracture of femur following insertion of orthopedic implant, joint prosthesis, or bone plate, right leg; K21.9 Gastro-esophageal reflux disease without esophagitis; I10 Essential (primary) hypertension
CPT/HCPCS: 20985; 27130; C1776; 97162; 97530; 73501; J0690; J1100; J1885; J2370; J2405

== ENCOUNTER 2020-06-16 11:12 | Emergency (ER) | payer OTHER, MEDICAID, SELFPAY ==
[2020-06-16 11:21] VITALS: BP 127/64; PULSE 75; RESP 16; TEMP 36.7; O2SAT 95
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
--- NOTE | 2020-06-16 12:07 | DI.RAD_ITS ---
Exam(s) XR PELVIS AP XR FEMUR RT EXAM: XR PELVIS AP CLINICAL HISTORY: s/p hip replacement, pain TECHNIQUE: COMPARISON: CR XR HIP RT COMPLETE AP PELVIS from 05/02/2020 MR TIDWELL LOWER JOINT RT WO from 05/17/2020 XR HIP RT IN OR from 06/07/2020 XR HIP RT IN OR from 06/07/2020 CR XR FEMUR RT from 06/16/2020 FINDINGS: Radiographs of the pelvis and radiographs of right femur are interpreted in conjunction. There are b ilateral hip replacements in position, the left hip replacement is old in the right hip replacement w as performed June 07 of this year. There is an apparent mildly displaced greater trochanter fracture of the right femur which was not vi sible on the intraoperative images obtained on June 07. No other fracture is identified on the fi lms obtained. Note is also made of a total knee joint replacement in position on the right. IMPRESSION: Apparent mildly displaced fracture of the greater trochanter of the right femur. Results of this exam have been verbally communicated with provider. RADIATION DOSE DELIVERED: Total DLP
[2020-06-16] MEDS: oxyCODONE 5 MG TAB 2.5 MG PO ×2 (12:31→14:52)
[2020-06-16 14:11] VITALS: BP 102/53; PULSE 79; RESP 18; TEMP 36.5; O2SAT 95
== END 2020-06-16 15:19 | disposition home or self-care (01) ==
PROVIDERS: Emergency Provider Emergency Medicine; PCP Nurse Practitioner Adult Health
DX: S72.111A Displaced fracture of greater trochanter of right femur, initial encounter for closed fracture (principal); X58.XXXA Exposure to other specified factors, initial encounter; Z96.641 Presence of right artificial hip joint
CPT/HCPCS: 73552; 99284; 72170; 99283

== ENCOUNTER 2020-06-23 15:23 | Outpatient (CLI) | payer OTHER, MEDICAID, MEDICARE, SELFPAY ==
--- NOTE | 2020-06-23 09:15 | DI.RAD_ITS ---
Exam(s) XR PELVIS AP EXAM: XR PELVIS AP CLINICAL HISTORY: 1ST POST OP R CHAIM. TECHNIQUE: 2D digital imaging was performed. COMPARISON: CR XR PELVIS AP from 06/16/2020 FINDINGS: Again noted are bilateral hip prostheses. No new findings on the left side. On the right side there is again noted the minimally displaced fracture of the greater trochanter. Appearance is unchanged on this single AP view. No additional fractures identified. IMPRESSION: DATA REPOSITORY: RADIATION DOSE DELIVERED:
== END 2020-06-23 15:24 | disposition home or self-care (01) ==
LOC: DIORS 15:25
PROVIDERS: PCP Nurse Practitioner Adult Health; Referring Provider Nurse Practitioner Adult Health; Visit Provider Physician Assistant Surgical
DX: M96.661 Fracture of femur following insertion of orthopedic implant, joint prosthesis, or bone plate, right leg (principal); Z96.643 Presence of artificial hip joint, bilateral
CPT/HCPCS: 72170

== ENCOUNTER 2020-07-08 11:09 | Outpatient (CLI) | payer OTHER, MEDICAID, SELFPAY ==
--- NOTE | 2020-07-08 11:00 | DI.RAD_ITS ---
Exam(s) XR HIP RT AP LAT ONLY EXAM: XR HIP RT AP LAT ONLY CLINICAL HISTORY: F/U FRACTURE TECHNIQUE: COMPARISON: CR XR DEXA BONE DENSITY W/WO ROLAN from 05/03/2020 FINDINGS: Two views were obtained. There is a total hip joint replacement position on the right. The componen ts appear well seated. No other significant bony abnormality seen. IMPRESSION: RADIATION DOSE DELIVERED: Total DLP
== END 2020-07-08 11:10 | disposition home or self-care (01) ==
LOC: DIORS 11:09
PROVIDERS: PCP Nurse Practitioner Adult Health; Referring Provider Nurse Practitioner Adult Health; Visit Provider Student in an Organized Health Care Education/Training Program
DX: S72.111D Displaced fracture of greater trochanter of right femur, subsequent encounter for closed fracture with routine healing (principal); X58.XXXD Exposure to other specified factors, subsequent encounter; Z96.641 Presence of right artificial hip joint
CPT/HCPCS: 73502

== ENCOUNTER 2020-07-22 11:36 | Outpatient (CLI) | payer OTHER, MEDICAID, SELFPAY ==
--- NOTE | 2020-07-22 11:35 | DI.RAD_ITS ---
Exam(s) XR HIP RT AP LAT ONLY EXAM: XR HIP RT AP LAT ONLY INDICATION: fracture. COMPARISON: CR XR HIP RT AP LAT ONLY from 07/08/2020 TECHNIQUE: 2D digital imaging was performed. FINDINGS: There has been no change in the right hip prosthesis or appearance of the surrounding bone. DATA REPOSITORY: RADIATION DOSE DELIVERED:
== END 2020-07-22 11:37 | disposition home or self-care (01) ==
LOC: DIORS 11:36
PROVIDERS: PCP Nurse Practitioner Adult Health; Referring Provider Nurse Practitioner Adult Health; Visit Provider Physician Assistant Surgical
DX: Z96.641 Presence of right artificial hip joint (principal); S72.111D Displaced fracture of greater trochanter of right femur, subsequent encounter for closed fracture with routine healing
CPT/HCPCS: 73502

== ENCOUNTER 2020-08-19 11:13 | Outpatient (CLI) | payer OTHER, MEDICAID, SELFPAY ==
--- NOTE | 2020-08-19 10:45 | DI.RAD_ITS ---
Exam(s) XR HIP RT AP LAT ONLY EXAM: XR HIP RT AP LAT ONLY INDICATION: F/U FRACTURE. COMPARISON: CR XR HIP RT AP LAT ONLY from 07/22/2020 TECHNIQUE: 2D digital imaging was performed. FINDINGS: There has been no change in the alignment of the hip prosthesis. The greater trochanter fracture is also unchanged in alignment. No new abnormality. DATA REPOSITORY: RADIATION DOSE DELIVERED:
== END 2020-08-19 11:14 | disposition home or self-care (01) ==
LOC: DIORS 11:15
PROVIDERS: PCP Nurse Practitioner Adult Health; Referring Provider Nurse Practitioner Adult Health; Visit Provider Physician Assistant
DX: Z96.641 Presence of right artificial hip joint; Z47.1 Aftercare following joint replacement surgery; S72.111D Displaced fracture of greater trochanter of right femur, subsequent encounter for closed fracture with routine healing; X58.XXXD Exposure to other specified factors, subsequent encounter; M70.62 Trochanteric bursitis, left hip
CPT/HCPCS: 73502

== ENCOUNTER → 2020-09-08 09:23 | Outpatient (BNVA) | payer OTHER, MEDICAID, SELFPAY | PROVIDERS: PCP Nurse Practitioner Adult Health; Referring Provider Nurse Practitioner Adult Health; Visit Provider Surgery | DX: K21.9 Gastro-esophageal reflux disease without esophagitis (principal); R10.13 Epigastric pain; R49.0 Dysphonia | CPT/HCPCS: 99213 ==

== ENCOUNTER → 2020-09-13 15:24 | Outpatient (BNVA) | payer OTHER, MEDICAID, SELFPAY | PROVIDERS: PCP Nurse Practitioner Adult Health; Referring Provider Nurse Practitioner Adult Health; Visit Provider Nurse Practitioner Gerontology | DX: N39.46 Mixed incontinence (principal); Z85.51 Personal history of malignant neoplasm of bladder | CPT/HCPCS: 99214 ==

== ENCOUNTER 2020-09-19 03:15 | Outpatient (CLI) | payer OTHER, MEDICAID, SELFPAY ==
[2020-09-19 12:58] LABS: Source Nasal/Nares
[2020-09-20 08:58] LABS: COVID-19 PCR Negative (Negative)
== END 2020-09-19 03:16 | disposition home or self-care (01) ==
PROVIDERS: PCP Nurse Practitioner Adult Health; Visit Provider Surgery
DX: Z20.822 Contact with and (suspected) exposure to COVID-19 (principal); Z01.818 Encounter for other preprocedural examination
CPT/HCPCS: 87635

== ENCOUNTER 2020-09-21 07:01 | Day surgery (SDC) | payer OTHER, MEDICAID, SELFPAY ==
--- NOTE | 2020-09-21 06:38 | ENDO_ITS ---
Date of service: 09/21/20 Time of Service: 08:02 Endoscopy Report DATE OF PROCEDURE: 09/21/20 PRE-OP DIAGNOSIS: Dysphagia, epigastric pain, hoarsness POST-OP DIAGNOSIS: same (and mild inflammation) PROCEDURE: EGD with biopsies SURGEON: Shanti Caballero ANESTHESIA TYPE: General:No Airway (ASA 2/Luis Eduardo Chaidez, MAXIMILIAN) ESTIMATED BLOOD LOSS: 3 PATHOLOGY: other (Antrum bx, gastric polyp, GE junction bx) COMPLICATIONS: None DISPOSITION: same day INDICATIONS: Mrs Salter is a pleasant 70-year-old female with a history of esophageal reflux disease who underwent an EGD in 2019. She had some mild inflammation in the stomach and esophagus. There was no Rod's on her biopsy results. She has now been having increased epigastric pain as well as hoarseness which started in June. She is also having some intermittent intermittent dysphagia especially to meats and crackers. She does not have a morning cough and does not have an acid taste in the back of her mouth in the mornings. She has had no nausea or vomiting. She has not been taking any NSAIDs. Differential and includes worsening GERD versus an issue with her vocal cords themselves. We will start with EGD with possible biopsies. Risks, benefits and complications have been reviewed. Complications include but are not limited to bleeding, pain, perforation, sore throat, aspiration, and adverse reaction to the medications. Questions were entertained and answered to their satisfaction and they wished to proceed. No guarantees were given or implied. FINDINGS: mild inflammation of the stomach and GE junction Intact Sarika funduplication PROCEDURE DESCRIPTION: After informed consent was obtained the patient was take to the procedure room and placed in a supine position. Monitors were applied and a time out was done. The patients name, date of , procedure type, allergies to medications and metal in their body was reviewed. A bite block was placed and the patient was sedated. Once sedated and comfortable the gastroscope was advanced through the oropharynx which was grossly normal into the esophagus. The proximal and mid- esophagus were normal. In the distal esophagus there was mild noted. The scope was advanced into the stomach and through the pylorus into the 3rd portion of the duodenum. The duodenum was noted to be normal. The scope was retracted back into the stomach. There was mild inflammation and a few scattered benign appearing fundic polyps. Biopsies were done to rule out H. pylori. There were no ulcers. The scope was retroflexed. The cardia and fundus were noted to be normal. An intact wrap was noted. There was no hiatal hernia noted. The scope was retracted back into the esophagus and biopsies were done of the GE junction to rule out Rod's. The Z line was regular. The GE junction was at 35 cm. The scope was removed and the patient was woken up and taken back to [facility] in stable condition. Follow up: as needed.
--- NOTE | 2020-09-21 06:40 | W.PM.DSUDISC ---
Discharge Plan Disposition Patient Disposition: HOME Condition: Good Discharge Details Reason For Visit: EGD Attending Provider: Shanti Caballero Primary Care Provider: Laura Jenkins Home Meds and New Rx's Prescriptions: Continued triamcinolone acetonide 0.1 % cream 1 applic TP BID PRN (Reason: rash on LLE) Qty: 30 RF: 1 albuterol sulfate 90 mcg/actuation HFA aerosol inhaler See Rx Instructions IH Q4H PRN (Reason: Wheezing or cough) Qty: 8.5 RF: 0 omeprazole 20 mg capsule,delayed release(DR/EC) 20 mg PO BID Qty: 180 RF: 0 hydrocortisone 2.5 % cream 1 applic TP BID PRN (Reason: skin irritation) Qty: 20 RF: 0 diclofenac sodium [Arthritis Pain (diclofenac)] 1 % gel 2 g topical BID PRN (Reason: hand arthritis) Qty: 50 RF: 3 cholecalciferol (vitamin D3) 50 mcg (2,000 unit) capsule 50 mcg PO DAILY Qty: 90 RF: 3 paroxetine HCl 30 mg tablet 30 mg PO DAILY Qty: 14 RF: 0 paroxetine HCl 20 mg tablet 20 mg PO DAILY Qty: 21 RF: 0 atorvastatin [Lipitor] 40 mg tablet 40 mg PO DAILY Qty: 90 RF: 3 lisinopril 20 mg tablet 20 mg PO DAILY Qty: 90 RF: 3 amlodipine 2.5 mg tablet 2.5 mg PO DAILY Qty: 90 RF: 3 gabapentin 800 mg tablet 800 mg PO TID Qty: 270 RF: 3 Myrbetriq 50 mg tablet extended release 24 hr 50 mg PO DAILY Qty: 90 RF: 3 loperamide 2 mg capsule 2 mg PO DAILY PRNRF: 0 trazodone 50 mg tablet 150 mg PO HS Qty: 270 RF: 3 acetaminophen 500 mg capsule 1,000 mg PO Q8H PRN PRNQty: 90 RF: 0 Discharge Instructions Additional Instructions: Findings: mild inflammation Follow up: I will send a letter with results. No change in medications I will refer you to [facility] Throat Dr. for evaluation Please call if you develop: fevers >101.5 Nausea or Vomiting Abdominal pain that is not transient Rectal bleeding that is more then a tbsp A hard abdomen and inability to pass gas DAY SURGERY UNIT POST ENDOSCOPY INSTRUCTIONS Instructions for everyone who is given Anesthesia: For your safety, please do the following for the next 24 Hours: a. Do not drive or operate dangerous equipment b. Do not drink alcohol beverages or use any recreational drugs for the first 24 hours or while taking pain medications. The medications in your body may have a reaction that can be dangerous. c. Do not make any important decisions or sign any important papers 1. Generally there are no restrictions on your activity after a day or so has gone by, but you may feel a bit fatigued for a few days. 2. After you arrive home you may have a light meal and return to a normal diet as you can tolerate it without feeling sick to your stomach. 3. After surgery, you may feel pain or discomfort. This should be only transient, but if it persists please contact your doctor. 4. If there are any questions regarding the findings of your procedure, please feel free to contact your doctor. 6. If you are unable to contact your doctor with a problem, contact the hospital at [phone]. 7. Continue all your regular medications unless directed otherwise. I understand the above instructions and have no questions. Signature of Patient or Responsible Adult Escort Date/Time Name of Responsible Adult Escort Signature of Nurse Date/Time Activity:: Activity as Tolerated Diet:: As Tolerated Discharge Orders Discharge Orders: Discharge Order (Routine); Ordered 09/21/20 Ordered By: Shanti Caballero
[2020-09-21 07:16] VITALS: BP 144/86; PULSE 80; RESP 16; TEMP 36.5; O2SAT 93
[2020-09-21] MEDS: Lactated Ringers 1,000 ML 80 ML IV (07:25)
--- NOTE | 2020-09-21 07:25 | W.ANESPRE ---
General Info Date of Service Date Performed: 09/21/20 Height: 5 ft 3 in Weight: 76.2 kg Body Mass Index (BMI): 29.7 Surgical Procedure: Operation Date: 09/21/20 08:35 Proposed Procedures Side Surgeon p Gastroscopy Shanti Caballero MD Meds Allergies and Home Medications Allergies Allergy/AdvReac Type Severity Reaction Status Date / Time oxybutynin Allergy Unknown angioedema Verified 09/21/20 07:22 risedronate sodium AdvReac Severe painful Verified 09/21/20 07:22 legs unable to stand confidently Home Medication Medication Instructions Recorded hydrocortisone 2.5 % topical cream 1 applic TP BID PRN #20 gm 08/19/19 triamcinolone acetonide 0.1 % 1 applic TP BID PRN #30 g 11/25/19 topical cream atorvastatin 40 mg tablet 40 mg PO DAILY #90 tab 02/15/20 lisinopril 20 mg tablet 20 mg PO DAILY #90 tab 03/18/20 amlodipine 2.5 mg tablet 2.5 mg PO DAILY #90 tab 03/21/20 gabapentin 800 mg tablet 800 mg PO TID #270 tab-cap 03/21/20 loperamide 2 mg capsule 2 mg PO DAILY PRN cap 03/21/20 mirabegron 50 mg tablet,extended 50 mg PO DAILY #90 tab 03/21/20 release 24 hr trazodone 50 mg tablet 150 mg PO HS #270 tab 04/25/20 albuterol sulfate 90 mcg/actuation See Rx Instructions IH Q4H PRN 05/11/20 aerosol inhaler #8.5 g acetaminophen 1,000 mg PO Q8H PRN PRN #90 cap 06/07/20 cholecalciferol (vitamin D3) 50 50 mcg PO DAILY #90 cap 08/10/20 mcg (2,000 unit) capsule diclofenac sodium 1 % topical gel 2 g TOPICAL BID PRN #50 g 08/10/20 paroxetine HCl 20 mg tablet 20 mg PO DAILY #21 tab 08/10/20 paroxetine HCl 30 mg tablet 30 mg PO DAILY #14 tab 08/10/20 omeprazole 20 mg capsule,delayed 20 mg PO BID #180 cap 08/24/20 release Current Visit Medications: Current Medications Generic Name Dose Route Start Last Admin Trade Name Freq PRN Reason Stop Dose Admin Hyoscyamine Sulfate 0.125 mg 09/21/20 06:41 Hyoscyamine 0.125 Mg Sl/Oral/Chew SL DIRECTED PRN Ringer's Solution 1,000 mls @ 80 mls/hr 09/21/20 06:00 IV 10/20/20 23:59 INFUSION [facility] IV Miscellaneous Supplies 1 each 09/21/20 06:00 Iv Access IV 10/20/20 23:59 DIRECTED ALEKSEY Ondansetron HCl 4 mg 09/21/20 06:41 Ondansetron 4 Mg/2 Ml Vial IVP Q4H PRN PRN Nausea / Vomiting Sodium Chloride 0 ml 09/21/20 06:00 Normal Saline Flush 10 Ml Syr IV 10/20/20 23:59 PRN PRN Sodium Chloride 0 ml 09/21/20 06:00 Normal Saline 10 Ml Vial IJ 10/20/20 23:59 DIRECTED PRN Sterile Water 0 ml 09/21/20 06:00 Water,Injection,Sterile 10 Ml Vial IJ 10/20/20 23:59 DIRECTED PRN PFSH Active Problems Active Problems: Problem Status Onset Code Osteoarthritis of right hip M16.11 Mixed stress and urge urinary incontinence N39.46 H/O arthroscopy of shoulder Z98.890 Cardiac murmur R01.1 Right hip pain M25.551 Trochanteric bursitis, right hip M70.61 Primary localized osteoarthritis of right hip M16.11 Hip pain, right M25.551 Closed fracture of greater trochanter of right femur 06/07/20 S72.111A Trochanteric bursitis, left hip M70.62 History of total right hip replacement 06/07/20 Z96.641 Chronic shortness of breath R06.02 Osteopenia determined by x-ray M85.80 Arthritis of carpometacarpal (CMC) joint of left thumb M18.12 Arthritis of carpometacarpal (CMC) joint of right thumb M18.11 Primary osteoarthritis involving multiple joints M15.0 Cervical spondylosis without myelopathy M47.812 Hx of bladder cancer Z85.51 Iron deficiency E61.1 Fibromyalgia M79.7 Depression F32.9 Hypercholesterolemia E78.00 GERD (gastroesophageal reflux disease) K21.9 Hypertension I10 Macrocytosis without anemia D75.89 Vitamin D deficiency E55.9 Medical History Medical History Arthritis of carpometacarpal (CMC) joint of left thumb s/p trapezial resection 11/30/2019 Arthritis of carpometacarpal (CMC) joint of right thumb Arthritis of left acromioclavicular joint Arthrosis of shoulder Bilateral dry eyes Cervical spondylosis without myelopathy Chronic shortness of breath PFTs essentially normal 2020 with significant bronchodilator response; normal CXR; RX Albuterol; due to occ exposure Kevlar? Closed fracture of right distal fibula (11/07/18) Depression Elevated bilirubin Fibromyalgia Fracture of phalanx of right foot, closed (11/07/18) GERD (gastroesophageal reflux disease) RX Omeprazole s/p upper 2019 endoscopy with findings c/w gastritis, duodenitis and possible soriano's esophagus Hx of bladder cancer Urology/[facility]quez & Nadya: history of papillary urothelial neoplasm of low malignancy. q2y cystoscopy, last 2019. Hx of tuberculosis age 2 Hypercholesterolemia Hypertension Incontinence of feces Iron deficiency Left rotator cuff tear Macrocytosis without anemia Osteoarthritis of left AC (acromioclavicular) joint Osteopenia determined by x-ray DEXA 2020; supplemental Vit D Primary osteoarthritis involving multiple joints Skin lesion of right ear Trochanteric bursitis Trochanteric bursitis, left hip Steroid injection: 08/19/2020 Ulnar neuropathy at elbow Vitamin D deficiency Surgical History Surgical History H/O esophagogastroduodenoscopy (~2018) History of carpal tunnel release History of elbow surgery History of Sarika fundoplication History of total bilateral knee replacement (TKR) History of total left hip arthroplasty (~04/2016) History of total right hip replacement (06/07/20) Hx of cholecystectomy Tobacco Smoking/Tobacco Use Status: Never Alcohol Alcohol Intake: current Alcohol intake frequency: 0-2 drinks per day Alcohol type: beer Substance Use Substance use: Never Substance use type: does not use Vital Signs and Lab Results Vital Signs Most Recent Vital Signs in EMR: Most Recent Vital Signs Temp Pulse Resp BP Pulse Ox 36.5 C 80 16 144/86 H 93 09/21/20 07:16 09/21/20 07:16 09/21/20 07:16 09/21/20 07:16 09/21/20 07:16 Lab Results Blood Type / Crossmatch: No Data to Display Complete Blood Count: No Data to Display Complete Metabolic Panel: No Data to Display Liver Function Panel: No Data to Display Coagulation Panel: No Data to Display Cardiac Panel: No Data to Display Arterial Blood Gas: No Data to Display Venous Blood Gas: No Data to Display Pancreas Panel: No Data to Display Thyroid Panel: No Data to Display Infectious Disease: Coronavirus (COVID-19)(PCR) Negative (Negative) 09/19/20 08:13 09/19/20 Coronavirus 2019 Source Nasal/Nares 09/19/20 08:13 09/19/20 Blood Cultures: No Data to Display Toxicology Panel: No Data to Display Anesthesia Assessment and Plan Anesthesia History Personal History: No History of Anesthesia Complications Family History: No Family History of Anesthesia Complications Exercise Tolerance Exercise Tolerance: Metabolic Equivalents>4 Pertinent Negatives Pertinent Negatives: No Symptoms of GERD (Well controlled with medication), No Major Cardiovascular Symptoms or Complaints, No Major Pulmonary Symptoms or Complaints and No History of CVA/TIA Cardiac & Pulmonary Exam Cardiac Exam: Normal S1/S2 Heart Sounds and Heart Murmur Present Pulmonary Exam: Clear Bilateral Breath Sounds Airway Exam Known Difficult Airway: No Mallampati Class: 3 Mouth Opening: Narrow (< 3cm) Thyromental Distance: Less than 3 cm Neck Range of Motion: Limited ROM Neck Circumference: Normal Teeth Condition: Removable Dentures/Plates Upper, Removable Dentures/Plates Lower and Edentulous ASA Classification ASA Score: ASA 2 Emergency Case?: No NPO Status NPO Status: NPO Clears >2 hours, Solids >8 hours Anesthesia Plan Resuscitation Status: Full Code Anesthesia Technique: General Anesthesia Airway Planned: Natural Airway Monitors Used: Standard Monitors
[2020-09-21 07:29] VITALS: BMI 29.7
--- NOTE | 2020-09-21 07:50 | STOM_PTH ---
PATIENT: Wendy Salter LOC: [facility] U#:[id number] AGE/SX: 70/F ROOM: RE09/21/[address]: Shanti Caballero MD : 1950 BED: DIS: 09/21/2020 SPEC #: [id number] RECD: 09/21/20 12:51 STATUS: ALEXANDRA REReji #: [id number] RD: 09/21/20 07:[address]: Shanti Caballero DEPT: Surgical Specimen RECD BY: Bridgette Hunter ENTERED: 09/21/20 12:53 SP TYPE: STOMACH OTHR DR: Laura Jenkins APRN Tissues: 1 - STOMACH BIOPSY 2 - STOMACH BIOPSY 3 - ESOPHAGUS BIOPSY 4 - ESOPHAGUS BIOPSY Procedures: GROSS AND MICRO LEVEL 4 Comments: [id number]
[2020-09-21 08:09] VITALS: BP 137/74; PULSE 76; RESP 20; TEMP 36.2; O2SAT 93
--- NOTE | 2020-09-21 08:11 | W.ANESPOSTOP ---
Postoperative Evaluation Date, Time and Location Date Performed: 09/21/20 Time Performed: 08:11 Patient Location: Day Surgery Unit Vital Signs Most Recent Imported Vital Signs: Most Recent Vital Signs Temp Pulse Resp BP Pulse Ox 36.5 C 80 16 144/86 H 93 09/21/20 07:16 09/21/20 07:16 09/21/20 07:16 09/21/20 07:16 09/21/20 07:16 Pain Score Most Recent Pain Score: Most Recent Pain Score Pain Level 0 09/21/20 07:16 Assessment Mental Status: Awake (Alert & Oriented to Patient Baseline) Airway and Respiratory Function: Patent airway with normal (patient baseline) respiratory exam Cardiovascular Function: Hemodynamically Stable Hydration Status: Adequately Hydrated Nausea & Vomiting: No Nausea or Vomiting Pain: Pt. Denies Any Pain Peripheral Nerve Block: Patient did not receive a nerve block
[2020-09-21 08:41] VITALS: BP 140/78; PULSE 69; RESP 20; TEMP 36.5; O2SAT 94
== END 2020-09-21 08:50 | disposition home or self-care (01) ==
LOC: SUR 07:01
PROVIDERS: PCP Nurse Practitioner Adult Health; Visit Provider Surgery
PROC: 0DJ68ZZ Inspection of Stomach, Via Natural or Artificial Opening Endoscopic (ICD-10-PCS; CPT 43235; principal; 2020-09-21 08:30)
DX: R10.13 Epigastric pain (principal); K31.7 Polyp of stomach and duodenum; K31.89 Other diseases of stomach and duodenum
CPT/HCPCS: 43239; 88305; J2001

== ENCOUNTER → 2020-09-30 10:07 | Outpatient (BNVA) | payer OTHER, MEDICAID, SELFPAY | PROVIDERS: PCP Nurse Practitioner Adult Health; Referring Provider Nurse Practitioner Adult Health; Visit Provider Surgery | DX: K21.9 Gastro-esophageal reflux disease without esophagitis (principal); R49.0 Dysphonia | CPT/HCPCS: 99212; 99213 ==

== ENCOUNTER 2020-10-04 04:19 | Outpatient (CLI) | payer OTHER, MEDICAID, SELFPAY ==
[2020-10-04 13:02] LABS: Source Nasal/Nares
[2020-10-04 15:33] LABS: COVID-19 PCR Negative (Negative)
== END 2020-10-04 04:20 | disposition home or self-care (01) ==
LOC: LBO 04:19
PROVIDERS: PCP Nurse Practitioner Adult Health; Visit Provider Urology
DX: Z20.822 Contact with and (suspected) exposure to COVID-19 (principal); Z01.818 Encounter for other preprocedural examination
CPT/HCPCS: 87635

== ENCOUNTER 2020-10-04 08:37 | Emergency (ER) | payer OTHER, MEDICAID, SELFPAY ==
[2020-10-04 08:44] VITALS: BP 155/68; PULSE 77; RESP 16; TEMP 36.3; O2SAT 96
[2020-10-04] MEDS: Acetaminophen 500 MG TAB 1000 MG PO (09:41)
[2020-10-04] MEDS: Lidocaine 5% Patch 1 PATCH TP (09:41)
--- NOTE | 2020-10-04 10:27 | DI.RAD_ITS ---
Exam(s) XR RIBS RT W PA LAT CHEST CLINICAL HISTORY: right anterior rib truong #5-6 crepitus fall. COMPARISON: CR XR CHEST 2V PA LATERAL from 03/17/2020 FINDINGS: LUNGS:Linear areas of scarring near the lung bases, greater on the left, not significantly changed. No pneumothorax. HEART: Normal. MEDIASTINUM: Normal. BONES: No displaced rib fracture is seen. No bony destructive lesion is seen. No thoracic compressio n fracture. Degenerative changes in the mid thoracic spine. Shoulders unremarkable. OTHER FINDINGS: Surgical clips right upper quadrant. IMPRESSION: 1. Unremarkable radiographic appearance of the right ribs. 2. No acute pulmonary findings.
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
== END 2020-10-04 10:48 | disposition home or self-care (01) ==
PROVIDERS: Emergency Provider Physician Assistant; PCP Nurse Practitioner Adult Health
DX: S22.31XA Fracture of one rib, right side, initial encounter for closed fracture (principal); W07.XXXA Fall from chair, initial encounter
CPT/HCPCS: 99283; 71046; 71100

== ENCOUNTER 2020-10-28 02:57 | Outpatient (CLI) | payer OTHER, MEDICAID, SELFPAY ==
--- NOTE | 2020-10-28 | DI.MAMMO_ITS ---
Exam(s) MAMMO SCREENING EXAM: MAMMO SCREENING CLINICAL HISTORY: SCREENING, Z12.39 TECHNIQUE: Bilateral full field digital CC and MLO mammographic images were obtained with 3D tomosyn thesis and utilizing computer aided detection (CAD). COMPARISON: Available for comparison. FINDINGS: Masses/Architectural Distortion: None seen. Microcalcifications: No suspicious pleomorphic-type are seen. Skin Thickening/Nipple Retraction: None. IMPRESSION: 1. No significant interval change with no specific features of malignancy noted. 2. Unless there is more urgent need, screening mammography is recommended, as per [employer] guidelines. BI-RADS Category 1 - Negative Breast Density - Category B - Scattered areas of fibroglandular density Breast density category C or D implies that the patient has dense breast tissue. Dense breast tissue is very common and is not abnormal but dense breast tissue can make it harder to find cancer on a ma mmogram. Also, dense breast tissue may increase their breast cancer risk. This information about the result of the mammogram report was provided to the patient to raise their awareness. Use this report when you speak with the patient about their risks for breast cancer, which includes their family hist ory. At that time, you may recommend for more screening tests (Ultrasound or MRI) as they might be us eful based on their risk. A negative radiographic report should not delay biopsy if a dominant or clinically suspicious mass is present. Up to ten percent of cancers are not identified on mammography. A negative report may reinforce clinical impression. Adenosis and dense breasts may obscure an underlying neoplasm. False positive reports average 6 to 10%. Patient will receive a letter notifying them of these results.
== END 2020-10-28 03:17 ==
PROVIDERS: PCP Nurse Practitioner Adult Health; Visit Provider Nurse Practitioner Adult Health
DX: Z12.31 Encounter for screening mammogram for malignant neoplasm of breast (principal)
CPT/HCPCS: 77063; 77067

== ENCOUNTER 2020-11-01 01:48 | Outpatient (CLI) | payer OTHER, MEDICAID, SELFPAY ==
[2020-11-01 10:35] LABS: Source Nasal/Nares
[2020-11-01 12:32] LABS: COVID-19 PCR Negative (Negative)
== END 2020-11-01 01:49 | disposition home or self-care (01) ==
LOC: LBO 01:49
PROVIDERS: PCP Nurse Practitioner Adult Health; Visit Provider Urology
DX: Z20.822 Contact with and (suspected) exposure to COVID-19 (principal); Z01.818 Encounter for other preprocedural examination
CPT/HCPCS: 87635

== ENCOUNTER 2020-11-03 06:21 | Day surgery (SDC) | payer OTHER, MEDICAID, SELFPAY ==
[2020-11-03 06:35] VITALS: BP 142/78; PULSE 75; RESP 16; TEMP 36.7; O2SAT 94
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
[2020-11-03] MEDS: Lactated Ringers 1,000 ML 80 ML IV (06:54)
--- NOTE | 2020-11-03 07:13 | ANES.PREOP_ITS ---
General Info Date of Service Date Performed: 11/03/20 Height: 5 ft 3 in Weight: 77 kg Body Mass Index (BMI): 30.0 Surgical Procedure: Operation Date: 11/03/20 07:40 Proposed Procedures Side Surgeon p Cystoscopy WITH TRANSURTHERAL Injection OF COAPTITE Andrey Shukla MD Meds Allergies and Home Medications Allergies Allergy/AdvReac Type Severity Reaction Status Date / Time oxybutynin Allergy Unknown angioedema Verified 11/03/20 06:35 paroxetine AdvReac Severe Withdrawal Verified 11/03/20 06:35 off it (hallucinations, emotional lability) risedronate sodium AdvReac Severe painful Verified 11/03/20 06:35 legs unable to stand confidently Home Medication Medication Instructions Recorded hydrocortisone 2.5 % topical cream 1 applic TP BID PRN #20 gm 08/19/19 triamcinolone acetonide 0.1 % 1 applic TP BID PRN #30 g 11/25/19 topical cream atorvastatin 40 mg tablet 40 mg PO DAILY #90 tab 02/15/20 lisinopril 20 mg tablet 20 mg PO DAILY #90 tab 03/18/20 amlodipine 2.5 mg tablet 2.5 mg PO DAILY #90 tab 03/21/20 gabapentin 800 mg tablet 800 mg PO TID #270 tab-cap 03/21/20 loperamide 2 mg capsule 2 mg PO DAILY PRN cap 03/21/20 mirabegron 50 mg tablet,extended 50 mg PO DAILY #90 tab 03/21/20 release 24 hr trazodone 50 mg tablet 150 mg PO HS #270 tab 04/25/20 albuterol sulfate 90 mcg/actuation See Rx Instructions IH Q4H PRN 05/11/20 aerosol inhaler #8.5 g acetaminophen 1,000 mg PO Q8H PRN PRN #90 cap 06/07/20 cholecalciferol (vitamin D3) 50 50 mcg PO DAILY #90 cap 08/10/20 mcg (2,000 unit) capsule diclofenac sodium 1 % topical gel 2 g TOPICAL BID PRN #50 g 08/10/20 omeprazole 20 mg capsule,delayed 20 mg PO BID #180 cap 08/24/20 release lidocaine [Lidoderm] 1 patch TOPICAL DAILY #15 ea 10/04/20 sertraline 50 mg tablet 50 mg PO DAILY #90 tab MDD 100mg 08/25/21 Current Visit Medications: Current Medications Generic Name Dose Route Start Last Admin Trade Name Adam PRN Reason Stop Dose Admin Ringer's Solution 1,000 mls @ 80 mls/hr 11/03/20 06:00 11/03/20 06:54 IV 80 mls/hr INFUSION ALEKSEY Administration Ringer's Solution 1,000 mls @ 80 mls/hr 11/03/20 06:00 IV 12/03/20 23:59 INFUSION ALEKSEY Cefazolin Sodium/Dextrose 1 gm in 50 mls @ 100 mls/hr 11/03/20 06:00 Ancef Duplex IVPB 11/03/20 23:59 PREOP ALEKSEY IV Miscellaneous Supplies 1 each 11/03/20 06:00 Iv Access IV 12/03/20 23:59 DIRECTED ALEKSEY Sodium Chloride 0 ml 11/03/20 06:00 Normal Saline Flush 10 Ml Syr IV 12/03/20 23:59 PRN PRN Sodium Chloride 0 ml 11/03/20 06:00 Normal Saline 10 Ml Vial IJ 12/03/20 23:59 DIRECTED PRN Sterile Water 0 ml 11/03/20 06:00 Water,Injection,Sterile 10 Ml Vial IJ 12/03/20 23:59 DIRECTED PRN PFSH Active Problems Active Problems: Problem Status Onset Code Fracture of rib S22.39XA Osteoarthritis of right hip M16.11 Mixed stress and urge urinary incontinence N39.46 H/O arthroscopy of shoulder Z98.890 Cardiac murmur R01.1 Right hip pain M25.551 Trochanteric bursitis, right hip M70.61 Primary localized osteoarthritis of right hip M16.11 Hip pain, right M25.551 Closed fracture of greater trochanter of right femur 06/07/20 S72.111A Trochanteric bursitis, left hip M70.62 History of total right hip replacement 06/07/20 Z96.641 Chronic shortness of breath R06.02 Osteopenia determined by x-ray M85.80 Arthritis of carpometacarpal (CMC) joint of left thumb M18.12 Arthritis of carpometacarpal (CMC) joint of right thumb M18.11 Primary osteoarthritis involving multiple joints M15.0 Cervical spondylosis without myelopathy M47.812 Hx of bladder cancer Z85.51 Iron deficiency E61.1 Fibromyalgia M79.7 Depression F32.9 Hypercholesterolemia E78.00 GERD (gastroesophageal reflux disease) K21.9 Hypertension I10 Macrocytosis without anemia D75.89 Vitamin D deficiency E55.9 Medical History Medical History Arthritis of carpometacarpal (CMC) joint of left thumb s/p trapezial resection 11/30/2019 Arthritis of carpometacarpal (CMC) joint of right thumb Arthritis of left acromioclavicular joint Arthrosis of shoulder Bilateral dry eyes Cervical spondylosis without myelopathy Chronic shortness of breath PFTs essentially normal 2020 with significant bronchodilator response; normal CXR; RX Albuterol; due to occ exposure Kevlar? Closed fracture of right distal fibula (11/07/18) Depression Elevated bilirubin Fibromyalgia Fracture of phalanx of right foot, closed (11/07/18) GERD (gastroesophageal reflux disease) RX Omeprazole s/p upper 2019 endoscopy with findings c/w gastritis, du odenitis and possible soriano's esophagus Hx of bladder cancer Urology/[facility]: history of papillary urothelial neoplasm of low malignancy. q2y cystoscopy, last 2019. Hx of tuberculosis age 2 Hypercholesterolemia Hypertension Incontinence of feces Iron deficiency Left rotator cuff tear Macrocytosis without anemia Osteoarthritis of left AC (acromioclavicular) joint Osteopenia determined by x-ray DEXA 2020; supplemental Vit D Primary osteoarthritis involving multiple joints Skin lesion of right ear Trochanteric bursitis Trochanteric bursitis, left hip Steroid injection: 08/19/2020 Ulnar neuropathy at elbow Vitamin D deficiency Surgical History Surgical History H/O esophagogastroduodenoscopy (~2018) History of carpal tunnel release History of elbow surgery History of Sarika fundoplication History of total bilateral knee replacement (TKR) History of total left hip arthroplasty (~04/2016) History of total right hip replacement (06/07/20) Hx of cholecystectomy Tobacco Smoking/Tobacco Use Status: Never Alcohol Alcohol Intake: current Alcohol intake frequency: 0-2 drinks per day Alcohol type: beer Substance Use Substance use: Never Substance use type: does not use Vital Signs and Lab Results Vital Signs Most Recent Vital Signs in EMR: Most Recent Vital Signs Temp Pulse Resp BP Pulse Ox 36.7 C 75 16 142/78 H 94 11/03/20 06:35 11/03/20 06:35 11/03/20 06:35 11/03/20 06:35 11/03/20 06:35 Lab Results Blood Type / Crossmatch: No Data to Display Complete Blood Count: No Data to Display Complete Metabolic Panel: No Data to Display Liver Function Panel: No Data to Display Coagulation Panel: No Data to Display Cardiac Panel: No Data to Display Arterial Blood Gas: No Data to Display Venous Blood Gas: No Data to Display Pancreas Panel: No Data to Display Thyroid Panel: No Data to Display Infectious Disease: Coronavirus (COVID-19)(PCR) Negative (Negative) 11/01/20 08:29 11/01/20 Coronavirus 2019 Source Nasal/Nares 11/01/20 08:29 11/01/20 Blood Cultures: No Data to Display Toxicology Panel: No Data to Display Imaging and Studies Imaging and Studies Echocardiogram Summary: 10/10/2012 EF 65% No valvular abnormalities Anesthesia Assessment and Plan Anesthesia History Personal History: No History of Anesthesia Complications Family History: No Family History of Anesthesia Complications Exercise Tolerance Exercise Tolerance: Metabolic Equivalents>4 Pertinent Negatives Pertinent Negatives: No Symptoms of GERD (Well controlled with medication), No Major Cardiovascular Symptoms or Complaints, No Major Pulmonary Symptoms or Complaints and No History of CVA/TIA Cardiac & Pulmonary Exam Cardiac Exam: Normal S1/S2 Heart Sounds Pulmonary Exam: Clear Bilateral Breath Sounds Airway Exam Known Difficult Airway: No Mallampati Class: 3 Mouth Opening: Narrow (< 3cm) Thyromental Distance: Less than 3 cm Neck Range of Motion: Limited ROM Neck Circumference: Normal Teeth Condition: Removable Dentures/Plates Upper, Removable Dentures/Plates Lower and Edentulous ASA Classification ASA Score: ASA 2 Emergency Case?: No NPO Status NPO Status: NPO Clears >2 hours, Solids >8 hours Anesthesia Plan Resuscitation Status: Full Code Anesthesia Technique: General Anesthesia Airway Planned: Natural Airway Monitors Used: Standard Monitors
[2020-11-03] MEDS: ceFAZolin 1 GM/50 ML BAG IVPB (07:39)
[2020-11-03] MEDS: Lidocaine 2% Jelly 6 ML SYR (07:51)
--- NOTE | 2020-11-03 07:57 | W.PM.DSUDISC ---
Discharge Plan Disposition Patient Disposition: HOME Condition: Stable Discharge Details Reason For Visit: Incontinence Attending Provider: Andrey Shukla Primary Care Provider: Laura Jenkins Home Meds and New Rx's Prescriptions: No Action triamcinolone acetonide 0.1 % cream 1 applic TP BID PRN (Reason: rash on LLE) Qty: 30 RF: 1 albuterol sulfate 90 mcg/actuation HFA aerosol inhaler See Rx Instructions IH Q4H PRN (Reason: Wheezing or cough) Qty: 8.5 RF: 0 sertraline 50 mg tablet 50 mg PO DAILY MDD 100mg Qty: 90 RF: 0 omeprazole 20 mg capsule,delayed release(DR/EC) 20 mg PO BID Qty: 180 RF: 0 hydrocortisone 2.5 % cream 1 applic TP BID PRN (Reason: skin irritation) Qty: 20 RF: 0 diclofenac sodium [Arthritis Pain (diclofenac)] 1 % gel 2 g topical BID PRN (Reason: hand arthritis) Qty: 50 RF: 3 cholecalciferol (vitamin D3) 50 mcg (2,000 unit) capsule 50 mcg PO DAILY Qty: 90 RF: 3 atorvastatin [Lipitor] 40 mg tablet 40 mg PO DAILY Qty: 90 RF: 3 lisinopril 20 mg tablet 20 mg PO DAILY Qty: 90 RF: 3 amlodipine 2.5 mg tablet 2.5 mg PO DAILY Qty: 90 RF: 3 gabapentin 800 mg tablet 800 mg PO TID Qty: 270 RF: 3 Myrbetriq 50 mg tablet extended release 24 hr 50 mg PO DAILY Qty: 90 RF: 3 loperamide 2 mg capsule 2 mg PO DAILY PRNRF: 0 trazodone 50 mg tablet 150 mg PO HS Qty: 270 RF: 3 acetaminophen 500 mg capsule 1,000 mg PO Q8H PRN PRNQty: 90 RF: 0 lidocaine [Lidoderm] 5 % adhesive patch,medicated 1 patch topical DAILY Qty: 15 RF: 0 Discharge Instructions Additional Instructions: Pt already has appt scheduled, so no new appointment needed Ask pt to call office in @ 1 week with progress report Activity:: Activity as Tolerated Remove Dressings/Wound Care:: 24 hours Shower/Bathe:: 24 hours Diet:: As Tolerated Discharge Orders Discharge Orders: Discharge Order (Routine); Ordered 11/03/20 Ordered By: Andrey Shukla Discharge Data Discharge Comment: pt must void prior to discharge DS: Diagnosis Discharge Diagnosis (1) Mixed stress and urge urinary incontinence: Status: Acute
--- NOTE | 2020-11-03 08:01 | W.PM.OP ---
Date of service: 11/03/20 Time of Service: 08:02 Operative Note Operative Note DATE OF PROCEDURE: 11/03/20 PRE-OP DIAGNOSIS: Mixed urinary incontinence POST-OP DIAGNOSIS: same PROCEDURE: Cystoscopy, transurethral injection of coapt tight at the bladder neck SURGEON: Andrey Shukla ANESTHESIA TYPE: Local By Surgeon and General:No Airway Refer to Anesthesia Record ESTIMATED BLOOD LOSS: 0 PATHOLOGY: none sent COMPLICATIONS: None Patient was transported to: same day Patient's condition: stable Indications: This is a 70-year-old woman who has a history of mixed urinary incontinence. Previously, she improved with a transurethral injection of a bulking agent at the bladder neck. She presents for repeat injection now that her incontinence has recurred and worsened. Findings: Residual Coaptite at bladder neck Procedure Description: Patient was brought to the operating room on 11/04/2020. She was given preoperative antibiotics. After successful induction of general anesthesia, she was placed in the dorsal lithotomy position. Her genitalia was prepped. 2% Xylocaine jelly was instilled into the urethra to act as a local anesthetic. A 20 [place] urethrotome sheath was passed through the urethra into the bladder. Used a 30 degree lens to inspect the bladder neck. There was some residual coapt type material present especially on the patient's right side. Using a transurethral injection system, we injected 1 additional vial of Coaptite submucosally at the bladder neck. At the completion of the procedure, the bladder neck appeared closed at rest. The patient tolerated this procedure well. The scope was removed and the bladder was drained with a 14 [place] straight catheter.
[2020-11-03 08:05] VITALS: BP 116/67; PULSE 69; RESP 17; TEMP 36.3; O2SAT 95
--- NOTE | 2020-11-03 08:08 | W.ANESPOSTOP ---
Postoperative Evaluation Date, Time and Location Date Performed: 11/03/20 Time Performed: 08:08 Patient Location: Day Surgery Unit Vital Signs Most Recent Imported Vital Signs: Most Recent Vital Signs Temp Pulse Resp BP Pulse Ox 36.7 C 75 16 142/78 H 94 11/03/20 06:35 11/03/20 06:35 11/03/20 06:35 11/03/20 06:35 11/03/20 06:35 Most Recent Manually Entered Vital Signs: Adult Blood Pressure: 127/70 Heart Rate: 69 Respirations: 16 Oxygen Saturation (%): 94 Temperature (C): 36.3 C Pain Score (0-10 Scale): 0 Pain Score Most Recent Pain Score: Most Recent Pain Score Pain Level 0 11/03/20 06:35 Assessment Mental Status: Awake (Alert & Oriented to Patient Baseline) Airway and Respiratory Function: Patent airway with normal (patient baseline) respiratory exam Cardiovascular Function: Hemodynamically Stable Hydration Status: Adequately Hydrated Nausea & Vomiting: No Nausea or Vomiting Pain: Pt. Denies Any Pain Peripheral Nerve Block: Patient did not receive a nerve block
[2020-11-03 08:09] VITALS: BP 127/70; PULSE 69; RESP 16; TEMPC 36.3; O2SAT 94
[2020-11-03] MEDS: Phenazopyridine 200 MG TAB PO (08:37)
== END 2020-11-03 09:07 | disposition home or self-care (01) ==
PROVIDERS: PCP Nurse Practitioner Adult Health; Visit Provider Urology
PROC: (CPT 51715; principal; 2020-11-03 07:30)
DX: N39.46 Mixed incontinence (principal); Z85.51 Personal history of malignant neoplasm of bladder; N36.42 Intrinsic sphincter deficiency (ISD)
CPT/HCPCS: 51715; L8606; J0690; J2001

== ENCOUNTER 2020-11-18 11:37 | Outpatient (CLI) | payer OTHER, MEDICAID, SELFPAY ==
--- NOTE | 2020-11-18 11:15 | DI.RAD_ITS ---
Exam(s) XR HIP RT AP LAT ONLY EXAM: XR HIP RT AP LAT ONLY CLINICAL HISTORY: rt hip pain TECHNIQUE: COMPARISON: CR XR HIP RT AP LAT ONLY from 08/19/2020 FINDINGS: Two views were obtained. There are bilateral total hip joint replacements in position. The componen ts appear well seated. No other significant bony seen. IMPRESSION: RADIATION DOSE DELIVERED: Total DLP
== END 2020-11-18 11:38 | disposition home or self-care (01) ==
LOC: DIORS 11:37
PROVIDERS: PCP Nurse Practitioner Adult Health; Referring Provider Nurse Practitioner Adult Health; Visit Provider Student in an Organized Health Care Education/Training Program
DX: M70.61 Trochanteric bursitis, right hip (principal); M25.551 Pain in right hip; M16.11 Unilateral primary osteoarthritis, right hip; Z87.81 Personal history of (healed) traumatic fracture; Z96.641 Presence of right artificial hip joint; M70.62 Trochanteric bursitis, left hip; M25.552 Pain in left hip
CPT/HCPCS: 20610; 73502; J1040

== ENCOUNTER → 2020-11-28 08:56 | Outpatient (BNVA) | payer OTHER, MEDICAID, SELFPAY | PROVIDERS: PCP Nurse Practitioner Adult Health; Visit Provider Nurse Practitioner Gerontology | DX: Z48.816 Encounter for surgical aftercare following surgery on the genitourinary system (principal); N39.46 Mixed incontinence; Z85.51 Personal history of malignant neoplasm of bladder | CPT/HCPCS: 99213 ==

== ENCOUNTER 2020-12-07 02:39 | Outpatient (CLI) | payer OTHER, MEDICAID, SELFPAY ==
--- NOTE | 2020-12-07 10:35 | DI.CT_ITS ---
Exam(s) CT LOWER EXTREMITY RT WO EXAM: CT LOWER EXTREMITY RT WO CLINICAL HISTORY: PAIN,CLOSED FX GREATER TROCHANTER LT FEMUR,H/O RT TOTAL HIP REPLACEMENT. TECHNIQUE: Imaging Protocol: Axial computed tomography images with coronal and sagittal reformatted images were created and reviewed. CONTRAST MATERIAL: None COMPARISON: CR XR HIP RT AP LAT ONLY from 11/18/2020 CR XR HIP RT AP LAT ONLY from 11/18/2020 FINDINGS: A right hip prosthesis acetabular component appears satisfactory. There is cortical discontinuity again noted laterally at the level the greater troch at which corresp onds to finding on the x-ray of 11/18/2020. There is also an area of lucency between the uppermost f emoral stem component and the greater trochanter bone which may indicate an element of loosening. On the sagittal reconstructed images there is a posterior defect in the bone also noted. There is no s ignificant loosening on the medial side. IMPRESSION: Lucent area around the upper femoral stem component which may indicate loosening. Does not exhibit t ypical appearance of osteomyelitis. RADIATION DOSE DELIVERED: 288.56mGy.cm Total DLP DATA REPOSITORY: All CT scans at this facility are submitted to the National Radiology Data Registry (NRDR) Dose Index Registry (DIR) with the [employer] ([employer]). RADIATION OPTIMIZATION: All CT scans at this facility use at least one of these dose optimization te chniques: automated exposure control; mA and/or kV adjustment per patient size (includes targeted exa ms where dose is matched to clinical indication); or iterative reconstruction.
== END 2020-12-07 02:59 ==
LOC: DI 02:39
PROVIDERS: PCP Nurse Practitioner Adult Health; Visit Provider Student in an Organized Health Care Education/Training Program
DX: Z96.641 Presence of right artificial hip joint
CPT/HCPCS: 73700

== ENCOUNTER → 2020-12-08 08:45 | Outpatient (BNVA) | payer OTHER, MEDICAID, SELFPAY | PROVIDERS: PCP Nurse Practitioner Adult Health; Referring Provider Nurse Practitioner Adult Health; Visit Provider Student in an Organized Health Care Education/Training Program | DX: S72.111K Displaced fracture of greater trochanter of right femur, subsequent encounter for closed fracture with nonunion (principal); X58.XXXD Exposure to other specified factors, subsequent encounter; Z96.641 Presence of right artificial hip joint | CPT/HCPCS: 99213 ==

== ENCOUNTER → 2020-12-30 09:36 | Outpatient (BNVA) | payer OTHER, MEDICAID, SELFPAY | PROVIDERS: PCP Nurse Practitioner Adult Health; Visit Provider Student in an Organized Health Care Education/Training Program | DX: S72.111K Displaced fracture of greater trochanter of right femur, subsequent encounter for closed fracture with nonunion (principal); X58.XXXD Exposure to other specified factors, subsequent encounter; Z96.641 Presence of right artificial hip joint; M70.61 Trochanteric bursitis, right hip; M16.11 Unilateral primary osteoarthritis, right hip ==

== ENCOUNTER 2021-01-11 02:19 | Outpatient (CLI) | payer OTHER, MEDICAID, SELFPAY ==
[2021-01-11 12:27] LABS: Source Nasal/Nares
[2021-01-11 15:11] LABS: COVID-19 PCR Negative (Negative)
== END 2021-01-11 02:20 | disposition home or self-care (01) ==
LOC: LBO 02:19
PROVIDERS: PCP Nurse Practitioner Adult Health; Visit Provider Student in an Organized Health Care Education/Training Program
DX: Z20.822 Contact with and (suspected) exposure to COVID-19 (principal)
CPT/HCPCS: 87635

== ENCOUNTER 2021-01-11 02:32 | Outpatient (CLI) | payer OTHER, MEDICAID, SELFPAY ==
[2021-01-11 09:42] LABS: HCT 42.8 % (36.0-46.0); HGB 14.2 g/dL (11.2-15.7); MCH 32.5 pg (27.0-33.0); MCHC 33.2 % (32.0-36.0); MCV 97.9 fL (80-95); MPV 9.3 fL (8.0-11.0); Platelet Count 183 10^3/uL (130-400); RBC 4.37 10^6/uL (3.93-5.22); RDW 12.7 % (11.7-14.6); RDW-SD 46.4 fL
[2021-01-11 10:15] LABS: Anion Gap 10.4 mmol/L (3-11); BUN 11 mg/dL (7-18); CO2 25.6 mmol/L (21.0-32.0); CREATININE 0.9 mg/dL (0.55-1.02); Calcium 8.8 mg/dL (8.5-10.1); Chloride 105 mmol/L (98-107); Glucose 97 mg/dL (74-106); Sodium 141 mmol/L (136-145)
== END 2021-01-11 02:33 | disposition home or self-care (01) ==
LOC: LBO 02:32
PROVIDERS: PCP Nurse Practitioner Adult Health; Visit Provider Student in an Organized Health Care Education/Training Program
DX: S72.111K Displaced fracture of greater trochanter of right femur, subsequent encounter for closed fracture with nonunion (principal); Z01.818 Encounter for other preprocedural examination
CPT/HCPCS: 36415; 80048; 85027; 86850; 86900; 86901

== ENCOUNTER 2021-01-13 11:01 | Inpatient (IN) | payer OTHER, MEDICAID, SELFPAY ==
[2021-01-13] VITALS (8 sets, daily range): BP systolic 101–142; BP diastolic 44–80; PULSE 60–82; RESP 18–26; TEMP 36–37; O2SAT 93–96; BMI 29.7
--- NOTE | 2021-01-13 | DI.RAD_ITS ---
Exam(s) XR PELVIS AP EXAM: XR PELVIS AP CLINICAL HISTORY: s/p ORIF R Trochanteric Fracture. In PACU. TECHNIQUE: 2D digital imaging was performed. One image was obtained. COMPARISON: CR XR PELVIS AP from 06/23/2020 FINDINGS: BONES: The patient is now status post internal fixation of the right greater trochanteric fracture. JOINTS: Bilateral total hip replacements. No joint effusion is present. SOFT TISSUE: Normal. IMPRESSION: Status post internal fixation of proximal right femoral fracture. DATA REPOSITORY: RADIATION DOSE DELIVERED:
--- NOTE | 2021-01-13 08:33 | W.ANESPRE ---
General Info Date of Service Date Performed: 01/13/21 Height: 5 ft 3 in Weight: 76.317 kg Body Mass Index (BMI): 29.7 Surgical Procedure: Operation Date: 01/13/21 12:40 Proposed Procedures Side Surgeon p Femur ORIF Right Alexis Odom MD Meds Allergies and Home Medications Allergies Allergy/AdvReac Type Severity Reaction Status Date / Time oxybutynin Allergy Unknown angioedema Verified 01/13/21 11:28 paroxetine AdvReac Severe Withdrawal Verified 01/13/21 11:28 off it (hallucinations, emotional lability) risedronate sodium AdvReac Severe painful Verified 01/13/21 11:28 legs unable to stand confidently Home Medication Medication Instructions Recorded hydrocortisone 2.5 % topical cream 1 applic TP BID PRN #20 gm 08/19/19 triamcinolone acetonide 0.1 % 1 applic TP BID PRN #30 g 11/25/19 topical cream atorvastatin 40 mg tablet 40 mg PO DAILY #90 tab 02/15/20 lisinopril 20 mg tablet 20 mg PO DAILY #90 tab 03/18/20 amlodipine 2.5 mg tablet 2.5 mg PO DAILY #90 tab 03/21/20 loperamide 2 mg capsule 2 mg PO DAILY PRN cap 03/21/20 mirabegron 50 mg tablet,extended 50 mg PO DAILY #90 tab 03/21/20 release 24 hr trazodone 50 mg tablet 150 mg PO HS #270 tab 04/25/20 albuterol sulfate 90 mcg/actuation See Rx Instructions IH Q4H PRN 05/11/20 aerosol inhaler #8.5 g acetaminophen 1,000 mg PO Q8H PRN PRN #90 cap 06/07/20 cholecalciferol (vitamin D3) 50 50 mcg PO DAILY #90 cap 08/10/20 mcg (2,000 unit) capsule diclofenac sodium 1 % topical gel 2 g TOPICAL BID PRN #50 g 08/10/20 omeprazole 20 mg capsule,delayed 20 mg PO DAILY #90 cap 11/07/20 release sertraline 50 mg tablet 150 mg PO DAILY #270 tab 11/10/20 gabapentin 800 mg tablet 800 mg PO TID #270 tab-cap 12/07/20 tramadol 50 mg tablet 50 mg PO BID PRN #30 tab 12/08/20 Current Visit Medications: Current Medications Generic Name Dose Route Start Last Admin Trade Name Freq PRN Reason Stop Dose Admin Acetaminophen 1,000 mg 01/13/21 06:00 Acetaminophen 500 Mg Tab PO PREOP ALEKSEY Celecoxib 400 mg 01/13/21 06:00 Celecoxib 200 Mg Cap PO PREOP ALEKSEY Tranexamic Acid 1,000 mg/ 60 mls @ 360 mls/hr 01/13/21 06:00 Sodium Chloride IV PREOP ALEKSEY Ringer's Solution 1,000 mls @ 80 mls/hr 01/13/21 06:00 IV 02/11/21 23:59 INFUSION ALEKSEY Cefazolin Sodium/Dextrose 2 gm in 50 mls @ 100 mls/hr 01/13/21 06:00 Ancef Duplex IVPB 02/11/21 23:59 PREOP ALEKSEY IV Miscellaneous Supplies 1 each 01/13/21 06:00 Iv Access IV 02/11/21 23:59 DIRECTED ALEKSEY Sodium Chloride 0 ml 01/13/21 06:00 Normal Saline Flush 10 Ml Syr IV 02/11/21 23:59 PRN PRN Sodium Chloride 0 ml 01/13/21 06:00 Normal Saline 10 Ml Vial IJ 02/11/21 23:59 DIRECTED PRN Sterile Water 0 ml 01/13/21 06:00 Water,Injection,Sterile 10 Ml Vial IJ 02/11/21 23:59 DIRECTED PRN PFSH Active Problems Active Problems: Problem Status Onset Code Primary osteoarthritis involving multiple joints M15.0 Cervical spondylosis without myelopathy M47.812 Hx of bladder cancer Z85.51 Iron deficiency E61.1 Fibromyalgia M79.7 Depression F32.9 Hypercholesterolemia E78.00 GERD (gastroesophageal reflux disease) K21.9 Hypertension I10 Macrocytosis without anemia D75.89 Mixed stress and urge urinary incontinence N39.46 H/O arthroscopy of shoulder Z98.890 Vitamin D deficiency E55.9 Arthritis of carpometacarpal (CMC) joint of right thumb M18.11 Arthritis of carpometacarpal (CMC) joint of left thumb M18.12 Cardiac murmur R01.1 Right hip pain M25.551 Trochanteric bursitis, right hip M70.61 Osteopenia determined by x-ray M85.80 Chronic shortness of breath R06.02 Primary localized osteoarthritis of right hip M16.11 Hip pain, right M25.551 Closed fracture of greater trochanter of right femur 06/07/20 S72.111A History of total right hip replacement 06/07/20 Z96.641 Trochanteric bursitis, left hip M70.62 Medical History Active Problem List Primary osteoarthritis involving multiple joints (Acute) Cervical spondylosis without myelopathy (Acute) Hx of bladder cancer (Chronic) Iron deficiency (Acute) Fibromyalgia (Acute) Depression (Chronic) Hypercholesterolemia (Acute) GERD (gastroesophageal reflux disease) (Chronic) Hypertension (Chronic) Macrocytosis without anemia (Acute) Mixed stress and urge urinary incontinence (Acute) H/O arthroscopy of shoulder (Acute) Vitamin D deficiency (Chronic) Arthritis of carpometacarpal (CMC) joint of right thumb (Acute) Arthritis of carpometacarpal (CMC) joint of left thumb (Acute) Cardiac murmur (Chronic) Right hip pain (Acute) Trochanteric bursitis, right hip (Acute) Osteopenia determined by x-ray (Chronic) Chronic shortness of breath (Chronic) Primary localized osteoarthritis of right hip (Acute) Hip pain, right (Acute) Closed fracture of greater trochanter of right femur (Acute 06/07/20) History of total right hip replacement (Acute 06/07/20) Trochanteric bursitis, left hip (Acute) Medical History Arthritis of left acromioclavicular joint Arthrosis of shoulder Bilateral dry eyes Closed fracture of right distal fibula (11/07/18) Elevated bilirubin Fracture of phalanx of right foot, closed (11/07/18) Fracture of rib Hx of tuberculosis age 2 Incontinence of feces Pt. states this is no longer current Osteoarthritis of left AC (acromioclavicular) joint Skin lesion of right ear Trochanteric bursitis Ulnar neuropathy at elbow Surgical History Surgical History H/O esophagogastroduodenoscopy (~2019) History of carpal tunnel release History of elbow surgery History of Sarika fundoplication History of total bilateral knee replacement (TKR) History of total left hip arthroplasty (04/20/16) Hx of cholecystectomy Tobacco Smoking/Tobacco Use Status: Never Alcohol Alcohol Intake: current Alcohol intake frequency: 0-2 drinks per day Alcohol type: beer Substance Use Substance use: Never Substance use type: does not use Vital Signs and Lab Results Lab Results Blood Type / Crossmatch: Patient ABO/Rh O Positive 01/11/21 09:30 01/11/21 Antibody Screen NEGATIVE 01/11/21 09:30 01/11/21 Complete Blood Count: White Blood Count 5.10 10^3/uL (4.4-10.8) 01/11/21 09:30 01/11/21 Red Blood Count 4.37 10^6/uL (3.93-5.22) 01/11/21 09:30 01/11/21 Hemoglobin 14.2 g/dL (11.2-15.7) 01/11/21 09:30 01/11/21 Hematocrit 42.8 % (36.0-46.0) 01/11/21 09:30 01/11/21 Platelet Count 183 10^3/uL (130-400) 01/11/21 09:30 01/11/21 Complete Metabolic Panel: Sodium Level 141 mmol/L (136-145) 01/11/21 09:30 01/11/21 Potassium Level 4.0 mmol/L (3.5-5.1) 01/11/21 09:30 01/11/21 Chloride Level 105 mmol/L (98-107) 01/11/21 09:30 01/11/21 Carbon Dioxide Level 25.6 mmol/L (21.0-32.0) 01/11/21 09:30 01/11/21 Blood Urea Nitrogen 11 mg/dL (7-18) 01/11/21 09:30 01/11/21 Creatinine 0.9 mg/dL (0.55-1.02) 01/11/21 09:30 01/11/21 Estimated GFR/1.73 m2 >= 60.00 (mL/min/1.73m2) 01/11/21 09:30 01/11/21 Calcium Level 8.8 mg/dL (8.5-10.1) 01/11/21 09:30 01/11/21 Glucose Level 97 mg/dL (74-106) 01/11/21 09:30 12/01/21 Liver Function Panel: No Data to Display Coagulation Panel: No Data to Display Cardiac Panel: No Data to Display Arterial Blood Gas: No Data to Display Venous Blood Gas: No Data to Display Pancreas Panel: No Data to Display Thyroid Panel: No Data to Display Infectious Disease: Coronavirus (COVID-19)(PCR) Negative (Negative) 01/11/21 09:47 01/11/21 Coronavirus 2019 Source Nasal/Nares 01/11/21 09:47 01/11/21 Blood Cultures: No Data to Display Toxicology Panel: No Data to Display Imaging and Studies Imaging and Studies Echocardiogram Summary: 10/10/2012: LVEF 65%, mild MR/TR. Pulmonary Function Summary: 2020: No evidence of obstructive airways dz. Significant bronchodilator response. Restrictive pattern. Anesthesia Assessment and Plan Anesthesia History Personal History: No History of Anesthesia Complications Family History: No Family History of Anesthesia Complications Exercise Tolerance Exercise Tolerance: Metabolic Equivalents>4 Cardiac & Pulmonary Exam Cardiac Exam: Normal S1/S2 Heart Sounds Pulmonary Exam: Clear Bilateral Breath Sounds Implantable Cardiac Device Does patient have a Pacemaker or an ICD?: No Airway Exam Known Difficult Airway: No Mallampati Class: 3 Mouth Opening: Narrow (< 3cm) Thyromental Distance: Less than 3 cm Neck Range of Motion: Limited ROM Neck Circumference: Normal Teeth Condition: Removable Dentures/Plates Upper, Removable Dentures/Plates Lower and Edentulous ASA Classification ASA Score: ASA 2 Emergency Case?: No NPO Status NPO Status: NPO Clears >2 hours, Solids >8 hours Anesthesia Plan Resuscitation Status: Full Code Anesthesia Technique: Spinal Anesthesia Airway Planned: Natural Airway Monitors Used: Standard Monitors Preoperative Comments:: 70 yo female for ORIF femur. Sig PMHx: fibromyalgia, HTN, never smoker, occ EtOH, Previous Anes: -Mac 3/Tobin 2 grade 1, easy mask. -Previous GA/no airways without issues. -CHAIM with spinal with no issues.
--- NOTE | 2021-01-13 11:30 | DI.RAD_ITS ---
Exam(s) XR HIP RT IN OR EXAM: XR HIP RT IN OR CLINICAL HISTORY: Closed fracture of greater trochanter of r femER TECHNIQUE: 2D and realtime digital imaging was performed. CONTRAST MATERIAL: Refer to procedure report. COMPARISON: CR XR HIP RT AP LAT ONLY from 08/19/2020 CR XR HIP RT AP LAT ONLY from 11/18/2020 CR XR HIP RT AP LAT ONLY from 11/18/2020 FINDINGS: Fluoroscopy was provided for Dr. Odom during the performance of a internal fixation of a proxima l right femoral fracture.. Please refer to the procedure report for complete details. Ka,r=14.04 mGy IMPRESSION: RADIATION DOSE DELIVERED:
[2021-01-13] MEDS: Celecoxib 200 MG CAP 400 MG PO (12:03)
[2021-01-13] MEDS: Acetaminophen 500 MG TAB 1000 MG PO ×2 (12:04→21:02)
[2021-01-13] MEDS: Lactated Ringers 1,000 ML 80 ML IV ×2 (12:04→21:15)
[2021-01-13] MEDS: ceFAZolin 2 GM/50 ML BAG IVPB (12:25)
[2021-01-13] MEDS: Bupivacaine 0.25% Pres-Free 30 ML VIAL (13:39)
[2021-01-13] MEDS: Ketorolac 30 MG/ML VIAL (13:42)
--- NOTE | 2021-01-13 16:21 | ROE_ITS ---
Date of service: 01/13/21 Time of Service: 16:21 Operative Note Operative Note DATE OF PROCEDURE: 01/13/21 PRE-OP DIAGNOSIS: Right Periprosthetic Trochanteric Fracture, Proximal Femur, Nonunion POST-OP DIAGNOSIS: same PROCEDURE: Open Reduction and Internal Fixation of Right Greater Trochanter Fracture SURGEON: Alexis Odom SPRAY DRIER OPERATOR HELPER: Noe Mcclain ANESTHESIA TYPE: General LMA/ETT and Spinal Refer to Anesthesia Record ESTIMATED BLOOD LOSS: 150 PATHOLOGY: none sent TOURNIQUET TIME: 0 COMPLICATIONS: None Patient was transported to: PACU Patient's condition: stable Indications: Wendy is a 70yo female who I have seen for continued symptoms of right lateral hip pain due to a 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 Nonoperative treatment options were employed first. However, pain continued. After failure of conservative treatment options, I recommended surgical intervention. I reviewed the technical details of the surgery. I reviewed the risk of the surgery to include bleeding, infection, pain, stiffness, damage to nerves and vessels, damage to muscles and tendons, hardware prominence, hardware failure, nonunion, malunion, fracture, blood clot. Despite these risks, the patient desired to proceed. Findings: There is a grossly loose trochanteric fracture. This fragment was larger posteriorly than anteriorly and was unstable with only some mild fibrous tissue at the bony edges but no bridging tissue. The fracture was exposed, bone ends prepared, and the fracture was secured using a proximal femoral hook plate. The hip was tested for range of motion and the fracture fragment was stable. Procedure Description: Wendy was greeted in the preoperative holding area. The identity was confirmed with the correct site and side. The consent was reviewed with the patient and signed. History and physical was updated. The patient was taken back to the operating room. A general anesthetic was administered. The patient was then positioned into the left lateral decubitus position for access to the right hip. All bony prominences well-padded. The right hip was prepped with ChloraPrep and draped in a standard fashion. Prophylactic antibiotics in the form of Cefazolin were administered. A timeout was performed for safe surgery. An approximately 12 cm incision was made overlying the posterior lateral hip. This was centered over the vastus ridge extending just proximal to the tip of the greater trochanter. The skin was incised sharply. Bleeding was stopped with electrocautery. The iliotibial band was identified and cleared for better visualization. It was noted to be quite taut against the lateral femur. The proximal portion of the greater trochanter was actually palpable through the gluteus fascia and was notably unstable. The iliotibial band was then incised longitudinally extending into the gluteus fascia and extending distally along the IT band. This was split bluntly and a Charnley retractor was inserted. We had excellent visualization of the lateral femur and the proximal femur. The vastus lateralis was identified and split longitudinally. The displaced trochanteric fracture fragment was easily palpable and grossly unstable. There was some bridging soft tissue seen which was divided. The anterior portion of the greater trochanter still had abductor attached to it and the loose fracture fragment had abductor tendon attached as well. There is no tearing of the abductor tendons. The fracture fragment was elevated out of its space and soft tissue attachments to the base of the fracture fragment were resected and the edges of the bone were debrided of any fibrous tissue. The implant was inspected within the wound and showed excellent signs of bony union from the host femur. The fracture bed of the greater trochanter was also debrided. There was fibrous tissue in this area and some sclerosis. A 2.0 mm drill was also used to help penetrate some holes into the sclerotic bone. I also used a curette to roughen the bony edges to promote bony bleeding. The fracture fragment was proximal and migrated and also externally rotated in a posterior position. I placed a fiber tape suture in the abductor tendon for manipulation. I was then able to manually manipulate the fracture fragment into its donor bed and hold with a clamp. This showed to reapproximate the tip the greater trochanter onto the femur. The edges of the bone did not mate up perfectly but there was bony contact throughout the length of the fracture. I then released the clamp and ensured that the bony edges were well prepared. I irrigated the wound including the joint and the deep tissues with irrisept chlorhexidine solution, allowing it to sit for 3 minutes. I then placed demineralized bone matrix in between the fracture edges. The fracture was once again reduced with clamps. A proximal femoral hook plate, 2 hole, was then slid under the clamps and onto the lateral femur looking the clamps onto the medial aspect of the greater trochanter. A small incision was made in the distal aspect of the abductor tendon to allow the tines to penetrate soft tissues. This was then pushed down all the way onto the tip the greater tr ochanter and advanced along the femoral shaft. The plate was sitting off the bone slightly proximally but it had excellent positioning and therefore with locking screws I excepted it. Fracture was ensured to be well reduced both visually and on the x-ray. I then placed a K wire to hold the plate distally. Given the little amount of bone proximally I went had with distal fixation first. I used the attachment plate, securing it to the locking hole of the plate. I then placed two 3.5 mm locking screws bicortically. The clamps were removed and the plate had excellent fixation. I then proceeded by placing 2 short unicortical 7.3 millimeters screw and 5.0 millimeter screw. A cerclage wire was then passed from a button in the 7.3 millimeter screw head underneath the lesser trochanter. A second periprosthetic attachment device was placed and 2 additional 3.5 mm bicortical screws were placed adjacent to the femoral stem and through the femur. All screws were finally tightened. The wounds thoroughly irrigated. Final x- rays were obtained. I then placed some fiber tape within the abductor tissues in the soft tissues surrounding the fracture to serve as a soft tissue bridge around the fracture site. There was some minor tearing of the abductor tendons posteriorly which was also repaired with a fiber tape suture. The deep structures were once again thoroughly irrigated. The deep tissues were injected with a mixture of 0.25% bupivacaine and 20 cc of Exparel and 30 mg of ketorolac. The vastus fascia was closed with a running #1 Vicryl suture. The iliotibial band was then closed with a #1 Vicryl. Once the longitudinal split was closed completely the point of maximal tightness was incised transversely. This was done between sutures allowing for some the longitudinal split open as well creating a cruciate style tenotomy for lengthening. Once again the deep tissues and iliotibial band were injected with the remainder of the bupivacaine Exparel cocktail. The wound was thoroughly irrigated. The deep tissues were closed with 0 Vicryl followed by 2-0 Vicryl. The skin was closed with a 4-0 Monocryl in a running subcuticular fashion which was reinforced with skin glue and Steri-Strips. The wound was dressed with Mepilex silver dressing. At the end of the case all counts are correct. The patient was transitioned back into the supine position. There were no notable complications. The patient was transferred to the PACU in stable condition.
--- NOTE | 2021-01-13 17:00 | W.ANESPOSTOP ---
Postoperative Evaluation Date, Time and Location Date Performed: 01/13/21 Time Performed: 17:00 Patient Location: PACU Vital Signs Most Recent Imported Vital Signs: Most Recent Vital Signs Temp Pulse Resp BP Pulse Ox 36.4 C L 65 22 101/56 L 96 01/13/21 17:00 01/13/21 17:00 01/13/21 17:00 01/13/21 17:00 01/13/21 17:00 Pain Score Most Recent Pain Score: Most Recent Pain Score Pain Level [Right Hip] 0 01/13/21 16:56 Pain Level 1 01/13/21 17:00 Assessment Mental Status: Awake (Alert & Oriented to Patient Baseline) Airway and Respiratory Function: Patent airway with normal (patient baseline) respiratory exam Cardiovascular Function: Hemodynamically Stable Hydration Status: Adequately Hydrated Nausea & Vomiting: No Nausea or Vomiting Pain: Pain is tolerable per patient Peripheral Nerve Block: Patient did not receive a nerve block
[2021-01-13] MEDS: Gabapentin 800 MG TAB PO (21:02)
[2021-01-13] MEDS: ceFAZolin 1 GM/50 ML BAG IVPB (21:02)
[2021-01-13] MEDS: Ketorolac 15 MG/ML VIAL IVP (21:43)
[2021-01-13] MEDS: traZODone 50 MG TAB 150 MG PO (21:45)
[2021-01-14] VITALS (8 sets, daily range): BP systolic 79–121; BP diastolic 48–76; PULSE 65–70; RESP 15–18; TEMP 36.4–37.1; O2SAT 92–95
[2021-01-14] MEDS: Ketorolac 15 MG/ML VIAL IVP ×4 (04:07→22:18)
[2021-01-14] MEDS: Normal Saline 1,000 ML 100 ML IV (04:07)
[2021-01-14] MEDS: ceFAZolin 1 GM/50 ML BAG IVPB ×2 (05:54→13:04)
[2021-01-14] MEDS: Sertraline 50 MG TAB 150 MG PO (07:40)
[2021-01-14] MEDS: Cholecalciferol (Vitamin D3) 1,000 UNIT TAB 2000 UNITS PO (07:40)
[2021-01-14] MEDS: Atorvastatin 40 MG TAB PO (07:40)
[2021-01-14] MEDS: Gabapentin 800 MG TAB PO ×3 (07:41→19:43)
[2021-01-14] MEDS: Omeprazole 20 MG CAPCR PO (07:41)
[2021-01-14] MEDS: Acetaminophen 500 MG TAB 1000 MG PO ×3 (07:42→19:41)
[2021-01-14] MEDS: Docusate Sodium 100 MG CAP PO (09:07)
--- NOTE | 2021-01-14 09:38 | INITIAL_ITS ---
- If Service Date Differs Date of service: 01/14/21 Time of Service: 09:38 Care Management Initial Assess REASON FOR HOSPITALIZATION:: Right hip fracture PAST MEDICAL HISTORY/PAST SURGICAL HISTORY:: Active Problem List (Updated 12/09/20 @ 05:55 by Alexis Odom MD). Mixed stress and urge urinary incontinence (Acute). H/O arthroscopy of shoulder (Acute). Cardiac murmur (Chronic). Right hip pain (Acute). Trochanteric bursitis, right hip (Acute). Primary localized osteoarthritis of right hip (Acute). Hip pain, right (Acute). Closed fracture of greater trochanter of right femur (Acute 06/07/20). Trochanteric bursitis, left hip (Acute). History of total right hip replacement (Acute 06/07/20). Chronic shortness of breath (Chronic). Osteopenia determined by x-ray (Chronic). Arthritis of carpometacarpal (CMC) joint of left thumb (Acute). Arthritis of carpometacarpal (CMC) joint of right thumb (Acute). Primary osteoarthritis involving multiple joints (Acute). Cervical spondylosis without myelopathy (Acute). Hx of bladder cancer (Chronic). Iron deficiency (Acute). Fibromyalgia (Acute). Depression (Chronic). Hypercholesterolemia (Acute). GERD (gastroesophageal reflux disease) (Chronic). Hypertension (Chronic). Macrocytosis without anemia (Acute). Vitamin D deficiency (Chronic). Medical History (Updated 12/09/20 @ 05:55 by Alexis Odom MD). Arthritis of left acromioclavicular joint. Arthrosis of shoulder. Bilateral dry eyes. Closed fracture of right distal fibula (11/07/18). Elevated bilirubin. Fracture of phalanx of right foot, closed (11/07/18). Fracture of rib. Hx of tuberculosis. age 2. Incontinence of feces. Osteoarthritis of left AC (acromioclavicular) joint. Skin lesion of right ear. Trochanteric bursitis. Ulnar neuropathy at elbow. Surgical History (Updated 12/14/20 @ 14:49 by Lita Dela Cruz RN). H/O esophagogastroduodenoscopy (~2019). History of carpal tunnel release. History of elbow surgery. History of Sarika fundoplication. History of total bilateral knee replacement (TKR). History of total left hip arthroplasty (04/20/16). Hx of cholecystectomy PREVIOUS FUNCTIONAL STATUS/SOCIAL/FAMILY SUPPORTS:: Wendy lives alone in an apartment in [place], [place] She has 3 daughters close by who will come right away if she needs them and she feels well supported. Wendy also shared that she has good neighbors that are helpful. 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 Wendy is independent with ADLs but has had difficulty with ambulation because of her hip. She has a car and does drive but for the time being she is unable to do so. CURRENT FUNCTIONAL STATUS:: Wendy was sitting up in a chair when CM met with her. She was agreeable to conversation and engaged well with CM. Wendy talked about her family and her children and how supportive they are of her needs. She has 4 children in all - 3 daughters and one son. She shared that her son has severe gout which limits his mobility but her daughters are frequent visitors. Wendy also talked about her 10 year old twin great grandsons. She proudly shared that one of them shot an eight point campo this year and the other one shot a torrez on the same day. While Wendy does not care for venison, her family does, so they bought a second freezer to preserve the meat. Wendy informed that she enjoys being outside and attending her grandchildren's games and activities but has been limited by pain since June. She described feeling less pain today than she has in a long time. She shared this with Dr. Odom while CM was with her and he indicated that that was a very good sign that the surgery was successful. ADVANCE DIRECTIVES:: none on file Has patient been provided with info about the portal/API?: Yes Did the patient sign up for the portal?: No CODE STATUS:: Full Code INSURANCE COVERAGE / FINANCIAL ISSUES:: [employer] [place]. Medicaid CURRENT HOME/COMMUNITY SERVICES/EQUIPMENT:: walker, cane, shower chair, sleeper/lounge chair and grab tool PRIMARY CARE PHYSICIAN:: Laura Jenkins POTENTIAL DISCHARGE NEEDS:: Follow up with surgeon and PCP. May need home health services PATIENT/FAMILY EDUCATION NEEDS:: Review of discharge instructions, limitations, medications, activity, folow up plan and discuss Ask Me Three TRANSPORTATION:: via private vehicle with family PLAN:: Wendy will likely be discharged home with new home health services for PT. She will follow up with her Orthopedic surgeon and PCP and transport with family. CM will continue to assess for and address discharge concerns.
[2021-01-14] MEDS: Lactated Ringers 1,000 ML 1000 ML IV (09:51)
[2021-01-14] MEDS: Dexamethasone 4 MG TAB PO (09:56)
--- NOTE | 2021-01-14 10:40 | PT.INIE ---
Date of service: 01/14/21 Time of Service: 10:40 PT Notes Physical Therapy Inpatient Initial Evaluation Date: 01/14/2021 Referring Doctor: Alexis Odom MD PT Orders: PT CONSULT: Status post Ortho surgery. S/P ORIF R troch. WBAT with walker, no active abduction Precautions: Fall. Standard. WBAT on right LE with AD. No active hip abduction on the right. Patient Profile/Admitting Diagnosis: Wendy is a 70-year-old female status post ORIF of right periprosthetic greater trochanteric fracture and proximal femur fracture nonunion with a right IT band release on postoperative day 1. She initially had a R CHAIM done back on 06/07/2020 due to primary unilateral OA. PMHX: Active Problem List (Updated 12/09/20 @ 05:55 by Alexis Odom MD) Mixed stress and urge urinary incontinence (Acute) H/O arthroscopy of shoulder (Acute) Cardiac murmur (Chronic) Right hip pain (Acute) Trochanteric bursitis, right hip (Acute) Primary localized osteoarthritis of right hip (Acute) Hip pain, right (Acute) Closed fracture of greater trochanter of right femur (Acute 06/07/20) Trochanteric bursitis, left hip (Acute) History of total right hip replacement (Acute 06/07/20) Chronic shortness of breath (Chronic) Osteopenia determined by x-ray (Chronic) Arthritis of carpometacarpal (CMC) joint of left thumb (Acute) Arthritis of carpometacarpal (CMC) joint of right thumb (Acute) Primary osteoarthritis involving multiple joints (Acute) Cervical spondylosis without myelopathy (Acute) Hx of bladder cancer (Chronic) Iron deficiency (Acute) Fibromyalgia (Acute) Depression (Chronic) Hypercholesterolemia (Acute) GERD (gastroesophageal reflux disease) (Chronic) Hypertension (Chronic) Macrocytosis without anemia (Acute) Vitamin D deficiency (Chronic) Medical History (Updated 12/09/20 @ 05:55 by Alexis Odom MD) Arthritis of left acromioclavicular joint Arthrosis of shoulder Bilateral dry eyes Closed fracture of right distal fibula (11/07/18) Elevated bilirubin Fracture of phalanx of right foot, closed (11/07/18) Fracture of rib Hx of tuberculosis age 2 Incontinence of feces Osteoarthritis of left AC (acromioclavicular) joint Skin lesion of right ear Trochanteric bursitis Ulnar neuropathy at elbow Surgical History (Updated 12/14/20 @ 14:49 by Lita Dela Cruz RN) H/O esophagogastroduodenoscopy (~2019) History of carpal tunnel release History of elbow surgery History of Sarika fundoplication History of total bilateral knee replacement (TKR) History of total left hip arthroplasty (04/20/16) Hx of cholecystectomy Social History/Home Situation: Lives alone in an apartment with a half-step to enter and a rail on one side. Use the FWW for all outdoors and community ambulation. Had been using the FWW all the time half a month leading to this surgery as instructed by orthopedic surgeon. States that in the apartment complex she lives in, neighbors use an orange flag placed by the window sill if immediate help is needed. She does not have an emergency alert device. Equipment Owned/DME: FWW Subjective: Wendy states that back in September, the leg of the chair that she was sitting on broke and she fell to the ground hitting her right side. Her R hip has hurt since despite conservative trearment of her periprosthetic fracture. She is agreeable to having HH PT come to her house for continued rehabilitation. She reports 3/10 pain in the R hip and thigh at rest and 3-4/10 pain with weight bearing. She understands that it is safe to get out of the left side of her bed to avoid active abduction in the R hip. Denies headache, dizziness, and chest pain through out session. Objective: General Observation: IV in the R UE. Michele catheter in place. Mepilex Ag over surgical incision. TEDS in B legs. SCDs in B legs. Mental Status: Alert and oriented as to person, place, time, and purpose. Able to pay attention, focus, and respond appropriately. Pain: 3/10 in R hip and thigh Vital Signs: Softer in supine with systolic pressure in the low 90s but went up to the 100s with sitting up. ROM: Right Lower Extremity: Hip flexion lacks the last 30 degrees while seated at edge of bed. Hip abduction WNL PASSIVELY. Knee flexion WFL. Ankle dorsiflexion WFL. Ankle plantarflexion WFL. Left Lower Extremity: Hip flexion WFL. Hip abduction WFL. Knee flexion WFL. Ankle dorsiflexion WFL. Ankle plantarflexion WFL. Strength: Right Lower Extremity: Hip flexors 3-/5. Hip abductors NT due to movement precaution. Knee flexors 4-/5. Knee extensors 4-/5. Ankle dorsiflexors 4/5. Ankle plantarflexors 4/5. Left Lower Extremity: Hip flexors 4/5. Hip abductors 4/5. Knee flexors 4/5. Knee extensors 4/5. Ankle dorsiflexors 4/5. Ankle plantarflexors 4/5. Bed Mobility/Transfers: Supine to sit with supervision with HOB flat Sit to stand with contact-guard assist with minimal cues for safe/correct technique Stand to sit with contact-guard assist with minimal cues for safe/correct technique Bed to reclining chair with contact-guard assist with minimal cues for safe/correct technique Gait: Instructed patient with level surface ambulation of 250 feet requiring contact-guard assist. Evelina decreased. Step height on the right decreased. Step length on the right decreased. Wheelchair follow provided for safety. Mild trunk lateral flexion to the right observed. Right foot in-toeing apparent. Mild SOB after activity seen. Balance: Static Sitting: Normal Dynamic Sitting: Normal Static Standing: Fair Dynamic Standing: Fair Special Tests: Mobility Limitations Standardized Measure [facility] 6 clicks Basic Mobility Inpatient Short Form: Raw Score: 20 CMS Score: 36% deficit Informed Consent/Education: Patient was instructed in purpose of PT consult and plan of care. Agreeable to proceed with established PT POC to achieve personal goals. Assessment: May benefit from physical therapy tomorrow morning prior to discharge until patient is seen by home health PT for continued postoperative rehabilitation on Saturday. Patient has her own FWW. She will alos benefit from OT for use of adaptive equipment for proper body mechanics and reduce fall risk at home. Patient presents with clinical signs and symptoms consistent with current/admitting diagnoses that have resulted to mobility limitations, gait instability, generalized weakness, and overall ADL decline as demonstrated by the following impairment level findings: 1. Decreased strength to R hip and knee major muscle groups 2. Impaired standing balance 3. Impaired activity tolerance 4. Limitation of joint range of motion in R hip 5. SOB Impairments are contributing to the following functional limitations: 1. Decline in bed mobility skills 2. Decline in transfer skills 3. Difficulty with ambulation without assistive device and physical assistance 4. Increased completion time for mobility ADL performance 5. Increased risk for falls 6. Difficulty with managing steps alone safely Patient is assessed as a 73485 moderate complexity based on the following: History: 70 -year-old female with past medical history as indicated above Examination: Demonstrable impairment in strength, balance, and mobility level with underlying impairments and functional limitations as exhibited above as well as deficit score of 36% utilizing the [facility] Mobility Inpatient Short Form Presentation: Evolving Decision Makin moderate complexity Goals: Goals X1 week 1. Supine-Sit independent 2. Sit-Supine independent 3. Sit-Stand independent 4. Stand-Sit independent with FWW 5. Bed-Chair independent with FWW 6. Chair-Bed independent with FWW 7. Independent gait on level surface with use of FWW for at least 100 feet without report of pain nor dyspnea 8. Independent stair negotiation while holding onto 1 rail for at least 1 step without report of pain nor dyspnea Plan of Care/Treatment Plan: 1-2x/day, 7 days/week x 1 week. Plan of care has been reviewed with the RENAL DIALYSIS RN providing the service under Physical Therapy direction. Initiate Physical Therapy intervention for pain management as needed, strengthening, bed mobility, transfers, gait, stairs, balance training, and use of assistive device. DISCHARGE RECOMMENDATIONS: [] Home with no services [] [X] Home with services. Home when medically cleared by orthopedic surgeon. Patient will benefit from home health PT services in order to progress mobility level using least restrictive assistive ambulatory device, assess home safety, identify additional equipment needs, and establish a functional maintenance program that will increase ability of patient to remain at home. [] Home with outpatient PT [] [] SNF for continued rehabilitation [] [] Reading Interventionist Care [] [] SNF versus LTC based on ability to participate and progress [] TREATMENT CODE/TIME: 65211 x 20 minutes, 74242 x 17 minutes beginning at 10:40 AM. Thank you for the opportunity to participate in the care of this patient. Janelle Mann PT, DPT, CLT [facility] [place], [place]
[2021-01-14] MEDS: Normal Saline Flush 10 ML SYR IV ×3 (10:51→22:17)
--- NOTE | 2021-01-14 15:35 | W.PM.PROGNOT ---
Date of Service Date of service: 01/14/21 Time of Service: 11:10 Assessment and Plan Assessment and plan (1) Closed fracture of greater trochanter of right femur: Status: Acute Assessment and plan: Wendy is a 70yo female who is s/p ORIF of a right greater trochanter fracture. She is doing well and already feels significnatly better than she did prior to the surgery. She is happy with the results so far and no noticeable complications. PT recommends another session to work on strength and stability with ambulation before discharge to home with HHPT. Vitals are stable. Resume home meds. ASA 81mg BID for DVT prevention. WBAT with a walker and no active abduction. Qualifiers: Encounter type: subsequent encounter Fracture alignment: displaced Fracture healing: with nonunion Qualified Code(s): S72.111K - Displaced fracture of greater trochanter of right femur, subsequent encounter for closed fracture with nonunion Subjective Subjective Interval history since last seen: Wendy reports that she has minimal pain and it feels much better than it did before her surgery. She has been able to work with physical therapy with some minor hesitation and weakness. She is trying to manage the current restrictions. She has had some itching which responded well to Benadryl. Exam Narrative Exam Narrative: Sitting up in the chair. NAD. AAOx3. RLE dressing is c/d/i. No significant ecchymosis. She tolerates IR/ER of the hip without significant pain. Objective Last Vital Signs Temp 36.5 C 01/14/21 12:55 Pulse 70 01/14/21 12:55 Resp 16 01/14/21 12:55 BP 99/65 L 01/14/21 12:55 Pulse Ox 94 01/14/21 12:55
[2021-01-14] MEDS: Aspirin E.C. 81 MG TABEC PO (19:43)
[2021-01-14] MEDS: traZODone 50 MG TAB 150 MG PO (22:19)
[2021-01-15 00:49] VITALS: BP 110/71; PULSE 77; RESP 18; TEMP 36.2; O2SAT 92
[2021-01-15] MEDS: Ketorolac 15 MG/ML VIAL IVP (03:51)
[2021-01-15] MEDS: Normal Saline Flush 10 ML SYR IV (03:51)
[2021-01-15 07:38] VITALS: BP 132/78; PULSE 72; RESP 16; TEMP 36.4; O2SAT 92
[2021-01-15] MEDS: Lisinopril 20 MG TAB PO (07:40)
[2021-01-15] MEDS: Acetaminophen 500 MG TAB 1000 MG PO (07:40)
[2021-01-15] MEDS: Mirabegron 50 MG TABCR PO (07:40)
[2021-01-15] MEDS: Sertraline 50 MG TAB 150 MG PO (07:40)
[2021-01-15] MEDS: Gabapentin 800 MG TAB PO (07:40)
[2021-01-15] MEDS: Aspirin E.C. 81 MG TABEC PO (07:40)
[2021-01-15] MEDS: Omeprazole 20 MG CAPCR PO (07:41)
[2021-01-15] MEDS: amLODIPine 2.5 MG TAB PO (07:41)
[2021-01-15] MEDS: Cholecalciferol (Vitamin D3) 1,000 UNIT TAB 2000 UNITS PO (07:41)
[2021-01-15] MEDS: Atorvastatin 40 MG TAB PO (07:41)
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
--- NOTE | 2021-01-15 09:37 | CMDISCH_ITS ---
- If Service Date Differs Date of service: 01/15/21 Time of Service: 09:37 LACE Index Scoring Tool - Questions: Length of Stay (in days): 2 Acuity (Admit via E.D.?): Yes E.D. Visits: 2 - Answers: Total Score: 7 Risk of Readmission: Low Risk Care Management Discharge Reason for Hospitalization: Right hip fracture Discharge Plan: Wendy will return home today with new orders for HH PT. She will be driven home by family via private vehicle. She will follow up with Ortho, [facility] PCP[facility]. Patient/Family Education Needs: Review discharge instructions regarding activity levels and medications, discussion of self care needs including ask me three. Services Needed at Discharge: Home Health Care Services (HH PT)
[2021-01-15] MEDS: Celecoxib 200 MG CAP PO (10:24)
--- NOTE | 2021-01-15 11:37 | PT.INTREAT ---
Date of service: 01/15/21 Time of Service: 10:00 PT Notes Visit Reasons: Right Greater Trochanter Fracture Inpatient Physical Therapy Treatment Note [facility] Date: 01/15/2021 PRECAUTIONS:Fall. Standard. WBAT on right LE with AD. No active hip abduction on the right. SUBJECTIVE: Sleeps in a recliner so will not need to get out of bed on the left. Has one short step with railing to get into house. We reviewed importance of avoiding abduction of right leg with movement. OBJECTIVE: PAIN: Not complaining of pain. BED MOBILITY/TRANSFERS Sit-stand: SBA, verbal cueing to use arms of chair to push herself up to standing Stand-sit: SBA, verbal cueing to use arms of chair to lower herself to sitting GAIT Assistive Device: FWW Weight bearing: WBAT on the right Assist: SBA Distance: 170ft x 2 THEREX: Reviewed ankle pumps, quad sets and glut sets with patient. Given written instructions to perform each of these exercise 10-15 reps each hour. STAIRS: Up / down 3 4 inch steps with handrails and SBA of one, utilizing step to gait pattern WBAT on the right. ASSESSMENT: Tolerated today's ambulation and review of exercises very well. PLAN: To be DC'ed home and is to receive HHPT services. TREATMENT CODE/TIME: 12209x8, ' starting at 10:00 am
--- NOTE | 2021-01-16 09:22 | INDS_ITS ---
Date of service: 01/16/21 Time of Service: 09:22 PT Notes Visit Reasons: Right Greater Trochanter Fracture Physical Therapy Inpatient Discharge Summary Date: 01/16/2021 Dates of Servcice: 01/14/2021 through 01/15/2021 This is a clinical summary of care provided for the duration of dates listed above. No charge was made in the completion of this documentation. Referring Doctor: Alexis Odom MD PT Orders: PT CONSULT: Status post Ortho surgery. S/P ORIF R troch. WBAT with walker, no active abduction Precautions: Fall. Standard. WBAT on right LE with AD. No active hip abduction on the right. Patient Profile/Admitting Diagnosis: Wendy is a 70-year-old female status post ORIF of right periprosthetic greater trochanteric fracture and proximal femur fracture nonunion with a right IT band release on postoperative day 1. She initially had a R CHAIM done back on 06/07/2020 due to primary unilateral OA. PMHX: Active Problem List (Updated 12/09/20 @ 05:55 by Alexis Odom MD) Mixed stress and urge urinary incontinence (Acute) H/O arthroscopy of shoulder (Acute) Cardiac murmur (Chronic) Right hip pain (Acute) Trochanteric bursitis, right hip (Acute) Primary localized osteoarthritis of right hip (Acute) Hip pain, right (Acute) Closed fracture of greater trochanter of right femur (Acute 06/07/20) Trochanteric bursitis, left hip (Acute) History of total right hip replacement (Acute 06/07/20) Chronic shortness of breath (Chronic) Osteopenia determined by x-ray (Chronic) Arthritis of carpometacarpal (CMC) joint of left thumb (Acute) Arthritis of carpometacarpal (CMC) joint of right thumb (Acute) Primary osteoarthritis involving multiple joints (Acute) Cervical spondylosis without myelopathy (Acute) Hx of bladder cancer (Chronic) Iron deficiency (Acute) Fibromyalgia (Acute) Depression (Chronic) Hypercholesterolemia (Acute) GERD (gastroesophageal reflux disease) (Chronic) Hypertension (Chronic) Macrocytosis without anemia (Acute) Vitamin D deficiency (Chronic) Medical History (Updated 12/09/20 @ 05:55 by Alexis Odom MD) Arthritis of left acromioclavicular joint Arthrosis of shoulder Bilateral dry eyes Closed fracture of right distal fibula (11/07/18) Elevated bilirubin Fracture of phalanx of right foot, closed (11/07/18) Fracture of rib Hx of tuberculosis age 2 Incontinence of feces Osteoarthritis of left AC (acromioclavicular) joint Skin lesion of right ear Trochanteric bursitis Ulnar neuropathy at elbow Surgical History (Updated 12/14/20 @ 14:49 by Lita Dela Cruz RN) H/O esophagogastroduodenoscopy (~2019) History of carpal tunnel release History of elbow surgery History of Sarika fundoplication History of total bilateral knee replacement (TKR) History of total left hip arthroplasty (04/20/16) Hx of cholecystectomy Social History/Home Situation: Lives alone in an apartment with a half-step to enter and a rail on one side. Use the FWW for all outdoors and community ambulation. Had been using the FWW all the time half a month leading to this surgery as instructed by orthopedic surgeon. States that in the apartment complex she lives in, neighbors use an orange flag placed by the window sill if immediate help is needed. She does not have an emergency alert device. Equipment Owned/DME: FWW Subjective: NT. See most recent [employer] notes. Objective: General Observation: NT. See most recent [employer] notes. Mental Status: NT. See most recent [employer] notes. Pain: NT. See most recent [employer] notes. Vital Signs: NT. See most recent [employer] notes. ROM: Right Lower Extremity: Hip flexion lacks the last 30 degrees while seated at edge of bed. Hip abduction WNL PASSIVELY. Knee flexion WFL. Ankle dorsiflexion WFL. Ankle plantarflexion WFL. Left Lower Extremity: Hip flexion WFL. Hip abduction WFL. Knee flexion WFL. An kle dorsiflexion WFL. Ankle plantarflexion WFL. Strength: Right Lower Extremity: Hip flexors 3-/5. Hip abductors NT due to movement precaution. Knee flexors 4-/5. Knee extensors 4-/5. Ankle dorsiflexors 4/5. Ankle plantarflexors 4/5. Left Lower Extremity: Hip flexors 4/5. Hip abductors 4/5. Knee flexors 4/5. Knee extensors 4/5. Ankle dorsiflexors 4/5. Ankle plantarflexors 4/5. Bed Mobility/Transfers: Supine to sit with supervision with HOB flat Sit to stand with contact-guard assist with minimal cues for safe/correct technique Stand to sit with contact-guard assist with minimal cues for safe/correct technique Bed to reclining chair with contact-guard assist with minimal cues for safe/correct technique Gait: Instructed patient with level surface ambulation of up to 250 feet requiring contact-guard assist. Evelina decreased. Step height on the right decreased. Step length on the right decreased. Wheelchair follow provided for safety. Mild trunk lateral flexion to the right observed. Right foot in-toeing apparent. Mild SOB after activity seen. Balance: Static Sitting: Normal Dynamic Sitting: Normal Static Standing: Fair Dynamic Standing: Fair Assessment: May benefit from physical therapy tomorrow morning prior to discharge until patient is seen by home health PT for continued postoperative rehabilitation on Saturday. Patient has her own FWW. She will alos benefit from OT for use of adaptive equipment for proper body mechanics and reduce fall risk at home. Patient presents with clinical signs and symptoms consistent with current/admitting diagnoses that have resulted to mobility limitations, gait instability, generalized weakness, and overall ADL decline as demonstrated by the following impairment level findings: 1. Decreased strength to R hip and knee major muscle groups 2. Impaired standing balance 3. Impaired activity tolerance 4. Limitation of joint range of motion in R hip 5. SOB Impairments are contributing to the following functional limitations: 1. Decline in bed mobility skills 2. Decline in transfer skills 3. Difficulty with ambulation without assistive device and physical assistance 4. Increased completion time for mobility ADL performance 5. Increased risk for falls 6. Difficulty with managing steps alone safely Goals: Goals X1 week 1. Supine-Sit independent NOT MET 2. Sit-Supine independent NOT MET 3. Sit-Stand independent NOT MET 4. Stand-Sit independent with FWW NOT MET 5. Bed-Chair independent with FWW NOT MET 6. Chair-Bed independent with FWW NOT MET 7. Independent gait on level surface with use of FWW for at least 100 feet without report of pain nor dyspnea NOT MET 8. Independent stair negotiation while holding onto 1 rail for at least 1 step without report of pain nor dyspnea NOT MET DISCHARGE RECOMMENDATIONS: [] Home with no services [] [X] Home with services. Home when medically cleared by orthopedic surgeon. Patient will benefit from home health PT services in order to progress mobility level using least restrictive assistive ambulatory device, assess home safety, identify additional equipment needs, and establish a functional maintenance program that will increase ability of patient to remain at home. [] Home with outpatient PT [] [] SNF for continued rehabilitation [] [] Long-Term Care [] [] SNF versus LTC based on ability to participate and progress [] TREATMENT CODE/TIME: [place] Thank you for the opportunity to participate in the care of this patient. Janelle Mann PT, DPT, CLT [facility] [place], [place]
== END 2021-01-15 11:03 | disposition home health service (06) | DRG 482 ==
LOC: PDS 11:01 → MS 17:30
PROVIDERS: Admitting Provider Student in an Organized Health Care Education/Training Program; PCP Nurse Practitioner Adult Health; Visit Provider Student in an Organized Health Care Education/Training Program
PROC: 0QS604Z Reposition Right Upper Femur with Internal Fixation Device, Open Approach (ICD-10-PCS; CPT 27248; principal; 2021-01-13 12:30)
DX: S72.111K Displaced fracture of greater trochanter of right femur, subsequent encounter for closed fracture with nonunion (principal); Z96.641 Presence of right artificial hip joint; N39.46 Mixed incontinence; M85.80 Other specified disorders of bone density and structure, unspecified site; M15.9 Polyosteoarthritis, unspecified; M47.812 Spondylosis without myelopathy or radiculopathy, cervical region; M79.7 Fibromyalgia; F32.9 Major depressive disorder, single episode, unspecified; E78.00 Pure hypercholesterolemia, unspecified; K21.9 Gastro-esophageal reflux disease without esophagitis; E55.9 Vitamin D deficiency, unspecified; I10 Essential (primary) hypertension; M97.01XD Periprosthetic fracture around internal prosthetic right hip joint, subsequent encounter; X58.XXXD Exposure to other specified factors, subsequent encounter; Z85.51 Personal history of malignant neoplasm of bladder; E61.1 Iron deficiency; R06.02 Shortness of breath; M70.62 Trochanteric bursitis, left hip
CPT/HCPCS: 27248; 97162; 97530; 72170; 73501; J0690; J1100; J1885; J2001; J2250; J2370; J2405; J2704; J8540

== ENCOUNTER 2021-01-30 15:02 | Outpatient (CLI) | payer OTHER, MEDICAID, SELFPAY ==
--- NOTE | 2021-01-30 13:00 | DI.RAD_ITS ---
Exam(s) XR HIP RT AP LAT ONLY EXAM: XR HIP RT AP LAT ONLY INDICATION: s/p ORIF R greater troch frx. COMPARISON: CR XR HIP RT AP LAT ONLY from 11/18/2020 CR XR PELVIS AP from 01/13/2021 CR XR PELVIS AP from 01/13/2021 TECHNIQUE: 2D digital imaging was performed. FINDINGS: There has been no change in the hip prosthesis or hardware related to fixation of the greater trochan ter fracture. No change in fracture alignment. DATA REPOSITORY: RADIATION DOSE DELIVERED:
== END 2021-01-30 15:03 | disposition home or self-care (01) ==
LOC: DIORS 15:02
PROVIDERS: PCP Nurse Practitioner Adult Health; Referring Provider Nurse Practitioner Adult Health; Visit Provider Student in an Organized Health Care Education/Training Program
DX: S72.111K Displaced fracture of greater trochanter of right femur, subsequent encounter for closed fracture with nonunion (principal); X58.XXXD Exposure to other specified factors, subsequent encounter
CPT/HCPCS: 73502

== ENCOUNTER 2021-03-02 11:31 | Outpatient (CLI) | payer OTHER, MEDICAID, SELFPAY ==
--- NOTE | 2021-03-02 11:15 | DI.RAD_ITS ---
Exam(s) XR HIP RT AP LAT ONLY EXAM: XR HIP RT AP LAT ONLY CLINICAL HISTORY: S/P ORIF R FEMUR. TECHNIQUE: 2D digital imaging was performed. COMPARISON: CR XR HIP RT AP LAT ONLY from 01/30/2021 FINDINGS: The previously described right hip prosthesis components and other hardware in the right hip region a re unchanged. Right hip noted as is the other hardware related to the greater trochanter and subtroc hanteric region. IMPRESSION: DATA REPOSITORY: RADIATION DOSE DELIVERED:
== END 2021-03-02 11:32 | disposition home or self-care (01) ==
LOC: DIORS 11:31
PROVIDERS: PCP Nurse Practitioner Adult Health; Referring Provider Nurse Practitioner Adult Health; Visit Provider Student in an Organized Health Care Education/Training Program
DX: S72.111K Displaced fracture of greater trochanter of right femur, subsequent encounter for closed fracture with nonunion (principal); X58.XXXD Exposure to other specified factors, subsequent encounter
CPT/HCPCS: 73502

== ENCOUNTER 2021-04-13 11:51 | Outpatient (CLI) | payer OTHER, MEDICAID, SELFPAY ==
--- NOTE | 2021-04-13 11:15 | DI.RAD_ITS ---
Exam(s) XR HIP RT AP LAT ONLY EXAM: XR HIP RT AP LAT ONLY INDICATION: S/P ORIF R FEMUR. COMPARISON: CR XR HIP RT AP LAT ONLY from 03/02/2021 TECHNIQUE: 2D digital imaging was performed. FINDINGS: There has been no change in the right hip prosthesis and lateral fixation plate. No abnormal bony wanda cencies. DATA REPOSITORY: RADIATION DOSE DELIVERED:
== END 2021-04-13 11:52 | disposition home or self-care (01) ==
LOC: DIORS 11:51
PROVIDERS: PCP Nurse Practitioner Adult Health; Referring Provider Nurse Practitioner Adult Health; Visit Provider Student in an Organized Health Care Education/Training Program
DX: S72.111K Displaced fracture of greater trochanter of right femur, subsequent encounter for closed fracture with nonunion; X58.XXXD Exposure to other specified factors, subsequent encounter; Z96.641 Presence of right artificial hip joint
CPT/HCPCS: 73502

== ENCOUNTER → 2021-06-15 10:28 | Outpatient (BNVA) | payer OTHER, MEDICAID, SELFPAY | PROVIDERS: PCP Nurse Practitioner Adult Health; Visit Provider Student in an Organized Health Care Education/Training Program | DX: X58.XXXD Exposure to other specified factors, subsequent encounter (principal); Z96.641 Presence of right artificial hip joint; S72.111K Displaced fracture of greater trochanter of right femur, subsequent encounter for closed fracture with nonunion | CPT/HCPCS: 99212 ==

== ENCOUNTER → 2021-10-31 01:01 | Outpatient (CLI) | payer OTHER, MEDICAID, SELFPAY ==
--- NOTE | 2021-10-31 07:15 | DI.MAMMO_ITS ---
Exam(s) MAMMO SCREENING EXAM: MAMMO SCREENING CLINICAL HISTORY: screening,Z12.39. TECHNIQUE: Bilateral full field digital CC and MLO mammographic images were obtained with 3D tomosyn thesis and utilizing computer aided detection (CAD). COMPARISON: Prior mammograms were reviewed, the most recent being October 2020.. FINDINGS: There has been no significant change in the appearance and distribution of the fibroglandular tissue. There are no CAD designations. There are no new spiculated masses nor malignant appearing microcalcification groups. There is no significant architectural distortion nor skin thickening-retraction. IMPRESSION: No radiographic evidence of malignancy. BI-RADS Category 1 - Negative Breast Density - Category B - Scattered areas of fibroglandular density Breast density Category C or D implies that the patient has dense breast tissue. Dense breast tissue can make it harder to find cancer on a mammogram. Dense breast tissue is also associated with an incr eased risk of breast cancer. This information about the result of the mammogram report was provided to the patient to raise their awareness. Use this report when you speak with the patient about their risks for breast cancer, which includes their family history. At that time, you may recommend additional screening tests (Ultrasoun d or MRI) as these tests may add significant information. A negative radiographic report should not delay biopsy if a dominant or clinically suspicious mass is present. Up to ten percent of cancers are not identified on mammography. A negative report may reinforce clinical impression. Adenosis and dense breasts may obscure an underlying neoplasm. False positive reports average 6 to 10%. Patient will receive a letter notifying them of these results.
== END ==
PROVIDERS: PCP Nurse Practitioner Adult Health; Visit Provider Nurse Practitioner Adult Health
DX: Z12.31 Encounter for screening mammogram for malignant neoplasm of breast (principal)
CPT/HCPCS: 77063; 77067

== ENCOUNTER 2021-11-03 00:47 | Outpatient (CLI) | payer OTHER, MEDICAID, SELFPAY ==
[2021-11-03 08:04] LABS: Abs Immature Grans 0.01 10^3/uL (0.0-0.06); Absolute Basophil Count 0.03 10^3/uL (0.0-0.2); Absolute Eosinophil Count 0.16 10^3/uL (0.0-0.7); Absolute Lymphocyte Count 1.12 10^3/uL (1.2-3.4); Absolute Monocyte Count 0.39 10^3/uL (0.1-0.8); Absolute Neutrophil Count 2.85 10^3/uL (1.2-6.7); Basophils % 0.7; Eosinophils % 3.5; HCT 44.2 % (36.0-46.0); HGB 14.3 g/dL (11.2-15.7); Immature Grans % 0.2; Lymphocytes % 24.6; MCH 31.4 pg (27.0-33.0); MCHC 32.4 % (32.0-36.0); MCV 97 fL (80-95); MPV 9.7 fL (8.0-11.0); Monocytes % 8.6; Neutrophils % 62.4; Platelet Count 168 10^3/uL (130-400); RBC 4.56 10^6/uL (3.93-5.22); RDW 14.4 % (11.7-14.6); RDW-SD 51.6 fL; WBC 4.56 10^3/uL (4.4-10.8)
[2021-11-03 09:31] LABS: Anion Gap 9.2 mmol/L (3-11); BUN 10 mg/dL (7-18); CO2 28.8 mmol/L (21.0-32.0); CREATININE 0.8 mg/dL (0.55-1.02); Calcium 9.1 mg/dL (8.5-10.1); Calculated LDL 54 mg/dL (<100); Chloride 105 mmol/L (98-107); Cholesterol 159 mg/dL (<200); Estimated GFR 78.24 (mL/min/1.73m2); Folate 19.8 ng/mL (8.6-20.0); Glucose 97 mg/dL (74-106); HDL Cholesterol 87 mg/dL (40-60); Potassium 3.8 mmol/L (3.5-5.1); Sodium 143 mmol/L (136-145); Triglyceride 93 mg/dL (<150); Vitamin B12 350 pg/mL (193-986)
== END 2021-11-03 00:48 | disposition home or self-care (01) ==
LOC: LBO 00:47
PROVIDERS: PCP Nurse Practitioner Adult Health; Visit Provider Nurse Practitioner Adult Health
DX: E61.1 Iron deficiency (principal); I10 Essential (primary) hypertension; E78.00 Pure hypercholesterolemia, unspecified; M79.7 Fibromyalgia; F32.9 Major depressive disorder, single episode, unspecified; Z79.899 Other long term (current) drug therapy
CPT/HCPCS: 36415; 80048; 80061; 82607; 82746; 85025

== ENCOUNTER → 2021-11-08 14:06 | Outpatient (BNVA) | payer OTHER, MEDICAID, SELFPAY | PROVIDERS: PCP Nurse Practitioner Adult Health; Referring Provider Nurse Practitioner Adult Health; Visit Provider Surgery | DX: R19.5 Other fecal abnormalities (principal) | CPT/HCPCS: 99212; 99214 ==

== ENCOUNTER → 2021-11-14 00:28 | Outpatient (CLI) | payer OTHER, MEDICAID, SELFPAY ==
--- NOTE | 2021-11-14 09:00 | ETT_ITS ---
APPROVED REPORT Exam: Exercise Treadmill Patient Location: Out-Patient Room/Bed: Stress Nurse: Apoorva Amezquita RN Ordering Provider:KATHRIN BANEGAS, Contact Number: [phone] BMI: 28.51 Baseline Rhythm: Sinus Rhythm Indications: Shortness of breath with exertion Medical History Medical History: Anxiety, OA, spondylosis, history of bladder CA, fibromyalgia, depression, HCL, HTN, GERD, anemia +murmur, bilateral total knees and hips Cardiac Medications: Atorvastatin, Amlodipine, Lisinopril, Omeprazole, Buspirone, Sertraline Allergies: Oxybutynin, Paroxetine, Riserdronate sodium Cardiac Risk Factors: +Family history, HTN, HLD, obesity Previous Cardiac Procedures: None Pretest Chest Pain Characteristics: None Exercise History: Indeterminate Physical Disabilities: None Lung Sounds: Lungs clear to auscultation Heart Sounds: S1/S2, regular Stress Test Details Test: Exercise stress testing was performed using a Buck protocol. Rest Stress HR Resting HR Supine: 74 bpm Max Heart Rate (APMHR): 148 bpm Resting HR Standin bpm Target HR (85% APMHR): 125 bpm Max HR Achieved: 136 bpm % of APMHR: 91 Recovery HR: 83 bpm HR response to stress: Normal HR response to stress BP Resting BP Supine: 148/76 mmHg Resting BP Standin/78 mmHg Max BP: 194/80 mmHg Recovery BP: 160/74 mmHg BP response to stress: Normal blood pressure response to stress. ECG Resting ECG: Sinus Rhythm Ectopy: None Stress ECG: Sinus Tachycardia ST Change: No significant ST segment changes noted Arrhythmia: None Recovery ECG: Sinus Rhythm, Recovery ST Change: No significant ST segment changes noted Recovery Arrhythmia: None Clinical Reason for Termination: Fatigue Stress Symptoms: General Fatigue Exercise duration: 5 min46 sec Highest Stage Reached: Stage 2: 2.5 mph at 12% grade. Exercise capacity: 7 METs Angina Score: None Espinosa Treadmill Score: 5.7 Rate Pressure Product: [id number] Stress ECG Conclusion 1. Resting electrocardiogram was within normal limits 2. Patient exercised on the Buck protocol and completed a workload of 7 METS, stopping due to fatigu e 3. Normal heart rate and blood pressure response to exercise. Patient achieved 91% of predicted hear t rate for age 4. There was no electrocardiographic evidence of myocardial ischemia 5. There were no significant dysrhythmias Espinosa Treadmill Score is 5.7 which is Low risk. Stress Test Summary STAGE Time (mins) Speed (mph) Grade (%) HR BP SpO2 SYMPTOMS METS Supine 74 148/76 Standing 77 148/78 94% 1 3 1.7 10 120 178/88 93% 4.5 2 6 2.5 12 136 98% mild shortness of breath 7 1 min recovery 115 194/80 3 min recovery 90 178/78 95% 6 min recovery 83 160/74 95% Pt tolerated stress test well. Reported mild shortness of breath during the end of stage 2 that resol yoni quickly in recovery stages.
== END ==
PROVIDERS: PCP Nurse Practitioner Adult Health; Visit Provider Nurse Practitioner Adult Health
DX: R06.02 Shortness of breath (principal)
CPT/HCPCS: 93016; 93018; 93017

== ENCOUNTER 2021-11-22 07:37 | Day surgery (SDC) | payer OTHER, MEDICAID, SELFPAY ==
--- NOTE | 2021-11-22 06:33 | COLE_ITS ---
Colonoscopy Report Date of procedure: 11/22/21 Pre-op diagnosis general: change in bowel habits, hx of hemorrhoids Post-op diagnosis procedure note: other (polyp, diverticulosis and internal hemorrhoids) Procedure: Colonoscopy with polypectomy Anoscopy and Internal Hemorrhoid banding Surgeon: Shanti Caballero Anesthesia Type: General:No Airway Estimated blood loss (mL): 2 Pathology: other (transverse polyp) Complications: None Disposition: same day Indications: Ms. Salter is a pleasant 71-year-old female who is been having changes in bowel habits.? She has been having more episodes of diarrhea with some incontinence.? She has had some dark stools although this is inconsistent.? She does have a history of hemorrhoids which do bleed intermittently.? She has a family history of colon cancer in 2 brothers.? We discussed the procedure in detail as well as the risk and complications.? We reviewed the prep.? Risks, benefits and complications have been reviewed. Complications include but are not limited to bleeding, pain, perforation, missed small lesion/polyp, sore throat, aspiration and adverse reaction to the medications. Questions were entertained and answered to their satisfaction and they wished to proceed. No guarantees were given or implied. Prep: Miralax/Dulcolax Procedure Start Time: 09:34 Procedure End Time: 09:56 Retraction Time: 14 minutes Findings: one polyp Severe diverticulosis Internal hemorrhoids Procedure Description: After informed consent was obtained the patient was taken to the procedure room and placed in a left decubitous position. Monitors were applied and a time out was done. The patients name, date of , procedure, allergies to medications and metal in their body was reviewed. The patient was then sedated. Once sedated and comfortable a rectal exam was done. External exam was normal. Internal exam revealed a normal sphincter tone and no palpable masses. The scope was then introduced and retro-flexed. Grade 2 internal hemorrhoids were identified. No polyps or masses were identified on retro-flexion. The scope was then advanced to the cecum without difficulty. The ileocecal vlave and appendiceal orifice were identified. The prep was good. The scope was then slowly retracted over 14 minutes back into the rectum. Polyps were removed with cold forceps in the transverse colon. There was severe descending and sigmoid diverticulosis noted. The scope was removed. Anoscopy was done and 3 Grade 2 internal hemorrhoids were banded without problem. The patient was woken up and taken back to Same day surgery in stable condition. The patient tolerated the procedure well and there were no immediate complicati ons.
--- NOTE | 2021-11-22 06:33 | ANES.PREOP_ITS ---
General Info Date of Service Date Performed: 11/22/21 Height: 5 ft 3 in Weight: 72.575 kg Body Mass Index (BMI): 28.3 Surgical Procedure: Operation Date: 11/22/21 09:40 Proposed Procedure Side Surgeon p Colonoscopy Shanti Caballero MD s Internal Hemorrhoid Banding Shanti Caballero MD Meds Allergies and Home Medications Allergies Allergy/AdvReac Type Severity Reaction Status Date / Time oxybutynin Allergy Unknown angioedema Verified 11/22/21 07:53 paroxetine AdvReac Severe Withdrawal Verified 11/22/21 07:53 off it (hallucinations, emotional lability) risedronate sodium AdvReac Severe painful Verified 11/22/21 07:53 legs unable to stand confidently Home Medication Medication Instructions Recorded loperamide 2 mg capsule 2 mg PO DAILY PRN 03/21/20 albuterol sulfate 90 mcg/actuation See Rx Instructions inhalation Q4H 05/11/20 aerosol inhaler PRN Wheezing or cough #8.5 grams cholecalciferol (vitamin D3) 50 50 mcg PO DAILY #90 caps 08/10/20 mcg (2,000 unit) capsule gabapentin 800 mg tablet 800 mg PO TID #270 tab-caps 12/07/20 acetaminophen 500 mg capsule 1,000 mg PO Q8H PRN PRN #90 caps 01/15/21 atorvastatin 40 mg tablet (Lipitor) 40 mg PO DAILY #90 tabs 02/08/21 amlodipine 2.5 mg tablet 2.5 mg PO DAILY #90 tabs 03/20/21 diclofenac sodium 1 % topical gel 2 g topical BID PRN hand arthritis 03/20/21 (Arthritis Pain (diclofenac)) #100 grams lisinopril 20 mg tablet 20 mg PO DAILY #90 tabs 03/20/21 mirabegron 50 mg tablet,extended 50 mg PO DAILY bladder spasms #90 03/20/21 release 24 hr (Myrbetriq) tabs omeprazole 20 mg capsule,delayed 20 mg PO DAILY #90 caps 04/10/21 release trazodone 50 mg tablet 150 mg PO HS #270 tabs 06/12/21 buspirone 30 mg tablet 30 mg PO BID #180 tabs 10/04/21 vit C,B-Bm-kpgba-lutein-zeaxan 1 tab PO DAILY 10/04/21 [PreserVision AREDS-2] sertraline 50 mg tablet See Rx Instructions .Route 11/08/21 .COMPLEX #270 tabs Current Visit Medications: Current Medications Generic Name Dose Route Start Last Admin Trade Name Adam PRN Reason Stop Dose Admin Ringer's Solution 1,000 mls @ 80 mls/hr 11/22/21 06:00 IV 12/21/21 23:59 INFUSION ALEKSEY IV Miscellaneous Supplies 1 each 11/22/21 06:00 Iv Access IV 12/21/21 23:59 DIRECTED ALEKSEY Sodium Chloride 0 ml 11/22/21 06:00 Normal Saline Flush 10 Ml Syr IV 12/21/21 23:59 PRN PRN Sodium Chloride 0 ml 11/22/21 06:00 Normal Saline 10 Ml Vial IJ 12/21/21 23:59 DIRECTED PRN Sterile Water 0 ml 11/22/21 06:00 Water,Injection,Sterile 10 Ml Vial IJ 12/21/21 23:59 DIRECTED PRN PFSH Active Problems Active Problems: Problem Status Onset Code Short of breath on exertion R06.02 Change in consistency of stool R19.5 Family history of colon cancer Z80.0 Anxiety F41.9 Primary osteoarthritis involving multiple joints M15.0 Cervical spondylosis without myelopathy M47.812 Hx of bladder cancer Z85.51 Iron deficiency E61.1 Fibromyalgia M79.7 Depression F32.9 Hypercholesterolemia E78.00 GERD (gastroesophageal reflux disease) K21.9 Hypertension I10 Macrocytosis without anemia D75.89 Mixed stress and urge urinary incontinence N39.46 Vitamin D deficiency E55.9 Cardiac murmur R01.1 Osteopenia determined by x-ray M85.80 Chronic shortness of breath R06.02 Medical History Medical History Arthritis of carpometacarpal (CMC) joint of left thumb s/p trapezial resection 11/30/2019 Arthritis of carpometacarpal (CMC) joint of right thumb Arthritis of left acromioclavicular joint Arthrosis of shoulder Bilateral dry eyes Closed fracture of right distal fibula (11/07/18) Elevated bilirubin Fracture of phalanx of right foot, closed (11/07/18) Fracture of rib Hip pain, right Hx of tuberculosis age 2 Incontinence of feces Pt. states this is no longer current Macular degeneration AREDS Osteoarthritis of left AC (acromioclavicular) joint Primary localized osteoarthritis of right hip Skin lesion of right ear Trochanteric bursitis Trochanteric bursitis, left hip Steroid injection: 11/18/2020; 08/19/2020 Trochanteric bursitis, right hip Depo-Medrol injection: 11/18/2020 Ulnar neuropathy at elbow Surgical History Surgical History Closed fracture of greater trochanter of right femur (06/07/20) s/p ORIF Greater Trochanter Periprosthetic Fracture (01/13/21) H/O arthroscopy of shoulder left shoulder one spurs removed. H/O esophagogastroduodenoscopy (~2018) History of carpal tunnel release History of elbow surgery History of Sarika fundoplication History of total bilateral knee replacement (TKR) History of total left hip arthroplasty (04/20/16) History of total right hip replacement (06/07/20) Hx of cholecystectomy Hx of cholecystectomy Status post total replacement of left hip (~04/11/21) Dr Mcdowell, [facility] Tobacco Smoking/Tobacco Use Status: Never Alcohol Alcohol Intake: current Alcohol intake frequency: 0-2 drinks per day Alcohol type: beer Substance Use Substance use: Never Substance use type: does not use Vital Signs and Lab Results Vital Signs Most Recent Vital Signs in EMR: Temp Pulse Resp BP Pulse Ox 36.3 C L 74 16 145/75 H 96 11/22/21 07:59 11/22/21 07:59 11/22/21 07:59 11/22/21 07:59 11/22/21 07:59 Lab Results Blood Type / Crossmatch: No Data to Display Complete Blood Count: White Blood Count 4.56 10^3/uL (4.4-10.8) 11/03/21 07:45 Red Blood Count 4.56 10^6/uL (3.93-5.22) 11/03/21 07:45 Hemoglobin 14.3 g/dL (11.2-15.7) 11/03/21 07:45 Hematocrit 44.2 % (36.0-46.0) 11/03/21 07:45 Platelet Count 168 10^3/uL (130-400) 11/03/21 07:45 Complete Metabolic Panel: Sodium 143 mmol/L (136-145) 11/03/21 07:45 Potassium 3.8 mmol/L (3.5-5.1) 11/03/21 07:45 Chloride 105 mmol/L (98-107) 11/03/21 07:45 Carbon Dioxide 28.8 mmol/L (21.0-32.0) 11/03/21 07:45 BUN 10 mg/dL (7-18) 11/03/21 07:45 Creatinine 0.8 mg/dL (0.55-1.02) 11/03/21 07:45 Est GFR (CKD-EPI 2020) 78.24 (mL/min/1.73m2) 11/03/21 07:45 Calcium 9.1 mg/dL (8.5-10.1) 11/03/21 07:45 Glucose 97 mg/dL (74-106) 11/03/21 07:45 Liver Function Panel: No Data to Display Coagulation Panel: No Data to Display Cardiac Panel: No Data to Display Arterial Blood Gas: No Data to Display Venous Blood Gas: No Data to Display Pancreas Panel: No Data to Display Thyroid Panel: No Data to Display Infectious Disease: No Data to Display Blood Cultures: No Data to Display Toxicology Panel: No Data to Display Imaging and Studies Imaging and Studies Study information below may be from another EMR and interpreted by another provider. Please see original notes in EMR for more complete details. Stress Test Summary: 11/14/21:Stress ECG Conclusion 1. Resting electrocardiogram was within normal limits 2. Patient exercised on the Buck protocol and completed a workload of 7 METS, stopping due to fatigue 3. Normal heart rate and blood pressure response to exercise. Patient achieved 91% of predicted heart rate for age 4. There was no electrocardiographic evidence of myocardial ischemia 5. There were no significant dysrhythmias Espinosa Treadmill Score is 5.7 which is Low risk. Echocardiogram Summary: 10/10/2012: LVEF 65%, mild MR/TR. Pulmonary Function Summary: 2020: No evidence of obstructive airways dz. Significant bronchodilator response. Restrictive pattern. Anesthesia Assessment and Plan Anesthesia History Personal History: No History of Anesthesia Complications Family History: No Family History of Anesthesia Complications Exercise Tolerance Exercise Tolerance: Metabolic Equivalents>4 Pertinent Negatives Pertinent Negatives: No Symptoms of GERD Cardiac & Pulmonary Exam Cardiac Exam: Normal S1/S2 Heart Sounds Pulmonary Exam: Clear Bilateral Breath Sounds Implantable Cardiac Device Does patient have a Pacemaker or an ICD?: No Airway Exam Known Difficult Airway: No Mallampati Class: 3 Mouth Opening: Narrow (< 3cm) Thyromental Distance: Less than 3 cm Neck Range of Motion: Limited ROM Neck Circumference: Normal Teeth Condition: Removable Dentures/Plates Upper, Removable Dentures/Plates Lower and Edentulous ASA Classification ASA Score: ASA 3 Emergency Case?: No NPO Status NPO Status: NPO Clears >2 hours, Solids >8 hours Anesthesia Plan Resuscitation Status: Full Code Anesthesia Technique: General Anesthesia Airway Planned: Natural Airway Monitors Used: Standard Monitors
--- NOTE | 2021-11-22 06:38 | W.PM.DSUDISC ---
Discharge Plan Disposition Patient Disposition: HOME Condition: Good Discharge Details Reason For Visit: Colonoscopy Attending Provider: Shanti Caballero Primary Care Provider: Laura Jenkins Home Meds and New Rx's Prescriptions: New lidocaine HCl 2 % jelly in applicator 1 applic topical TID PRNQty: 125 0RF Rx Instructions: Apply to intenal hemorrhoids up to 3 x a day as needed Continued albuterol sulfate 90 mcg/actuation HFA aerosol inhaler See Rx Instructions IH Q4H PRN (Reason: Wheezing or cough) Qty: 8.5 0RF Rx Instructions: 1-2 puffs IH Q4H PRN; Use with spacer gabapentin 800 mg tablet 800 mg PO TID Qty: 270 3RF Rx Instructions: Fibromyalgia vit C,U-Zc-brijv-lutein-zeaxan [PreserVision AREDS-2] 1 tab PO DAILY Rx Instructions: 1 daily buspirone 30 mg tablet 30 mg PO BID Qty: 180 3RF cholecalciferol (vitamin D3) 50 mcg (2,000 unit) capsule 50 mcg PO DAILY Qty: 90 3RF Rx Instructions: Osteopenia amlodipine 2.5 mg tablet 2.5 mg PO DAILY Qty: 90 3RF Rx Instructions: Blood pressure lisinopril 20 mg tablet 20 mg PO DAILY Qty: 90 3RF Rx Instructions: Blood pressure Myrbetriq 50 mg tablet extended release 24 hr 50 mg PO DAILY Qty: 90 3RF diclofenac sodium [Arthritis Pain (diclofenac)] 1 % gel 2 g topical BID PRN (Reason: hand arthritis) Qty: 100 3RF Rx Instructions: Hand arthritis; max 32G/24 hrs on all joints omeprazole 20 mg capsule,delayed release(DR/EC) 20 mg PO DAILY Qty: 90 3RF loperamide 2 mg capsule 2 mg PO DAILY PRN Rx Instructions: Diarrhea (OTC) atorvastatin [Lipitor] 40 mg tablet 40 mg PO DAILY Qty: 90 3RF trazodone 50 mg tablet 150 mg PO HS Qty: 270 3RF sertraline 50 mg tablet See Rx Instructions .ROUTE .COMPLEX Qty: 270 3RF Dose Instruction: TAKE 3 TABLETS DAILY; MAXIMUM DAILY DOSE 150 MG. (DISCONTINUE PAXIL) Rx Instructions: TAKE 3 TABLETS DAILY; MAXIMUM DAILY DOSE 150 MG. (DISCONTINUE PAXIL) acetaminophen 500 mg capsule 1,000 mg PO Q8H PRN PRNQty: 90 0RF Discharge Instructions Instructions: Diverticulosis (DC), Hemorrhoids (DC), Rubber Band Ligation (DC) Additional Instructions: Findings: one polyp diverticulosis internal hemorrhoids Follow up: will depend on the pathology results Other: sitz baths as needed Please call if you develop: fevers >101.5 Nausea or Vomiting Abdominal pain that is not transient Rectal bleeding that is more then a tbsp A hard abdomen and inability to pass gas DAY SURGERY UNIT POST ENDOSCOPY INSTRUCTIONS Instructions for everyone who is given Anesthesia: For your safety, please do the following for the next 24 Hours: a. Do not drive or operate dangerous equipment b. Do not drink alcohol beverages or use any recreational drugs for the first 24 hours or while taking pain medications. The medications in your body may have a reaction that can be dangerous. c. Do not make any important decisions or sign any important papers 1. Generally there are no restrictions on your activity after a day or so has gone by, but you may feel a bit fatigued for a few days. 2. After you arrive home you may have a light meal and return to a normal diet as you can tolerate it without feeling sick to your stomach. 3. After surgery, you may feel pain or discomfort. This should be only transient, but if it persists please contact your doctor. 4. If there are any questions regarding the findings of your procedure, please feel free to contact your doctor. 6. If you are unable to contact your doctor with a problem, contact the hospital at [phone]. 7. Continue all your regular medications unless directed otherwise. I understand the above instructions and have no questions. Signature of Patient or Responsible Adult Escort Date/Time Name of Responsible Adult Escort Signature of Nurse Date/Time Activity:: Activity as Tolerated Diet:: high fiber diet Discharge Orders Discharge Orders: Discharge Order (Routine); Ordered 11/22/21 Ordered By: Shanti Caballero
[2021-11-22 07:59] VITALS: BP 145/75; PULSE 74; RESP 16; TEMP 36.3; O2SAT 96
[2021-11-22] MEDS: Lactated Ringers 1,000 ML 80 ML IV (08:17)
[2021-11-22 09:18] VITALS: BMI 28.3
--- NOTE | 2021-11-22 09:47 | BOWEL_PTH ---
PATIENT: Wendy Salter LOC: [facility] U#:[id number] AGE/SX: 71/F ROOM: RE11/22/[address]: Shanti Caballero MD : 1950 BED: DIS: 11/22/2021 SPEC #: [id number] RECD: 11/22/21 12:42 STATUS: ALEXANDRA REQ #: [id number] RD: 11/22/21 09:[address]: Shanti Caballero DEPT: Surgical Specimen RECD BY: Bridgette Hunter ENTERED: 11/22/21 12:43 SP TYPE: Bowel OTHR DR: Laura Jenkins, [facility] Tissues: 1 - BIOPSY BOWEL Procedures: GROSS AND MICRO LEVEL 4 Comments: [id number]
[2021-11-22 10:01] VITALS: BP 108/63; PULSE 70; RESP 16; TEMP 36.3; O2SAT 93
--- NOTE | 2021-11-22 10:09 | W.ANESPOSTOP ---
Postoperative Evaluation Date, Time and Location Date Performed: 11/22/21 Time Performed: 10:09 Patient Location: Day Surgery Unit Vital Signs Most Recent Imported Vital Signs: Most Recent Vital Signs Temp Pulse Resp BP Pulse Ox 36.3 C L 70 16 108/63 93 11/22/21 10:01 11/22/21 10:01 11/22/21 10:01 11/22/21 10:01 11/22/21 10:01 Pain Score Most Recent Pain Score: Most Recent Pain Score Pain Level 0 11/22/21 10:01 Assessment Mental Status: Awake (Alert & Oriented to Patient Baseline) Airway and Respiratory Function: Patent airway with normal (patient baseline) respiratory exam Cardiovascular Function: Hemodynamically Stable Hydration Status: Adequately Hydrated Nausea & Vomiting: No Nausea or Vomiting Pain: Pt. Denies Any Pain Peripheral Nerve Block: Patient did not receive a nerve block
[2021-11-22 10:30] VITALS: BP 128/61; PULSE 66; RESP 16; TEMP 36.4; O2SAT 95
== END 2021-11-22 10:55 | disposition home or self-care (01) ==
PROVIDERS: PCP Nurse Practitioner Adult Health; Visit Provider Surgery
PROC: 0DJD8ZZ Inspection of Lower Intestinal Tract, Via Natural or Artificial Opening Endoscopic (ICD-10-PCS; CPT 45378; principal; 2021-11-22 09:30)
PROC: (CPT 45380; 2021-11-22 09:30)
DX: R19.4 Change in bowel habit (principal); K63.5 Polyp of colon; K64.1 Second degree hemorrhoids; K57.30 Diverticulosis of large intestine without perforation or abscess without bleeding
CPT/HCPCS: 45380; 46221; 88305

== ENCOUNTER → 2021-11-27 09:48 | Outpatient (BNVA) | payer OTHER, MEDICAID, SELFPAY | PROVIDERS: PCP Nurse Practitioner Adult Health; Referring Provider Nurse Practitioner Adult Health; Visit Provider Nurse Practitioner Gerontology | DX: N39.46 Mixed incontinence (principal); N95.0 Postmenopausal bleeding; Z85.51 Personal history of malignant neoplasm of bladder | CPT/HCPCS: 51798; 81003; 99214 ==

== ENCOUNTER 2021-11-29 10:23 | Outpatient (REF) | payer OTHER, MEDICAID, SELFPAY ==
--- NOTE | 2021-11-29 10:10 | ENDOMET_PTH ---
PATIENT: Wendy Salter LOC: [facility] U#:[id number] AGE/SX: 71/F ROOM: RE11/29/[address]: Kacey Wheatley : 1950 BED: DIS: 11/29/2021 SPEC #: [id number] RECD: 11/29/21 12:53 STATUS: ALEXANDRA REQ #: [id number] RD: 11/29/21 10:[address]: Kacey Wheatley DEPT: Surgical Specimen RECD BY: Bridgette Hunter ENTERED: 11/29/21 12:54 SP TYPE: Endomet OTHR DR: Laura Jenkins APRN Tissues: 1 - ENDOMETRIUM BX/CURRETTE Procedures: GROSS AND MICRO LEVEL 4 Comments: [id number]
--- NOTE | 2021-11-29 10:10 | PAPFT_PTH ---
PATIENT: Wendy Salter LOC: [facility] U#:[id number] AGE/SX: 71/F ROOM: RE11/29/[address]: Kacey Wheatley : 1950 BED: DIS: 11/29/2021 SPEC #: [id number] RECD: 11/29/21 13:15 STATUS: ALEXANDRA REReji #: [id number] RD: 11/29/21 10:[address]: Kacey Wheatley DEPT: [facility] Cytology RECD BY: Bridgette Hunter ENTERED: 11/29/21 13:16 SP TYPE: PAPFT OTHR DR: Laura Jenkins APRN Tissues: 1 - CX/ENDOCX FOR PAP SMEARS Procedures: PAP THIN PREP/UVM Screening HPV DNA PROBE Comments: [id number]
== END 2021-11-29 10:24 | disposition home or self-care (01) ==
LOC: LBN 10:23
PROVIDERS: PCP Nurse Practitioner Adult Health; Visit Provider Obstetrics & Gynecology Gynecology
DX: Z12.4 Encounter for screening for malignant neoplasm of cervix (principal); Z11.51 Encounter for screening for human papillomavirus (HPV); N85.8 Other specified noninflammatory disorders of uterus
CPT/HCPCS: 88142; 88305; 87624

== ENCOUNTER 2021-11-30 03:00 | Outpatient (CLI) | payer OTHER, MEDICAID, SELFPAY ==
--- NOTE | 2021-11-30 06:45 | DI.US_ITS ---
Exam(s) US PELVIS TRANSVAGINAL EXAM: US PELVIS TRANSVAGINAL CLINICAL HISTORY: postmenopausal bleeding,lumbar pain,m54.50,n95.0 TECHNIQUE: Ultrasound performed using standard protocol. COMPARISON: No exams were available for comparison FINDINGS: Pelvic ultrasound was performed transabdominally and transvaginally. Please note there is an approximately 2 cm in diameter avascular hyperechoic mass in the urinary blad ирина with no posterior acoustic shadowing. Possibility of a bladder wall mass is raised, correlation with cystoscopy recommended. Kidneys are grossly normal in appearance with no evidence of hydronephrosis or nephrolithiasis. Uterus measures 4.6 x 2.9 x 3.8 cm, uterus is difficult to evaluate due to position and other technic al factors. There is probable fluid in the endometrial cavity. Ovaries were nonvisualized. No gross free fluid in the cul-de-sac. IMPRESSION: Question bladder wall mass, cystoscopy suggested. Probable fluid in endometrial cavity, this is abnormal in this age group. Hystero sonography and/ or endometrial biopsy should be considered, alternatively pelvic MRI could be obtained which would also evaluate for ovarian pathology. DATA REPOSITORY:
== END 2021-11-30 03:20 ==
LOC: DI 03:01
PROVIDERS: PCP Nurse Practitioner Adult Health; Visit Provider Obstetrics & Gynecology Gynecology
DX: M54.50 Low back pain, unspecified (principal); N95.0 Postmenopausal bleeding
CPT/HCPCS: 76830; 76856

== ENCOUNTER 2021-12-07 06:13 | Day surgery (SDC) | payer OTHER, MEDICAID, SELFPAY ==
[2021-12-07 06:15] VITALS: BP 125/65; PULSE 78; RESP 18; TEMP 36.5; O2SAT 95
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
[2021-12-07] MEDS: Lactated Ringers 1,000 ML 80 ML IV (07:02)
--- NOTE | 2021-12-07 07:10 | ANES.PREOP_ITS ---
General Info Date of Service Date Performed: 12/07/21 Height: 5 ft 3 in Weight: 70.6 kg Body Mass Index (BMI): 27.6 Surgical Procedure: Operation Date: 12/07/21 07:40 Proposed Procedure Side Surgeon p Cystoscopy/Injection, Coaptite Andrey Shukla MD Meds Allergies and Home Medications Allergies Allergy/AdvReac Type Severity Reaction Status Date / Time oxybutynin Allergy Unknown angioedema Verified 11/29/21 09:33 paroxetine AdvReac Severe Withdrawal Verified 11/29/21 09:33 off it (hallucinations, emotional lability) risedronate sodium AdvReac Severe painful Verified 11/29/21 09:33 legs unable to stand confidently Home Medication Medication Instructions Recorded loperamide 2 mg capsule 2 mg PO DAILY PRN 03/21/20 albuterol sulfate 90 mcg/actuation See Rx Instructions inhalation Q4H 05/11/20 aerosol inhaler PRN Wheezing or cough #8.5 grams cholecalciferol (vitamin D3) 50 50 mcg PO DAILY #90 caps 08/10/20 mcg (2,000 unit) capsule gabapentin 800 mg tablet 800 mg PO TID #270 tab-caps 12/07/20 acetaminophen 500 mg capsule 1,000 mg PO Q8H PRN PRN #90 caps 01/15/21 atorvastatin 40 mg tablet (Lipitor) 40 mg PO DAILY #90 tabs 02/08/21 amlodipine 2.5 mg tablet 2.5 mg PO DAILY #90 tabs 03/20/21 diclofenac sodium 1 % topical gel 2 g topical BID PRN hand arthritis 03/20/21 (Arthritis Pain (diclofenac)) #100 grams lisinopril 20 mg tablet 20 mg PO DAILY #90 tabs 03/20/21 mirabegron 50 mg tablet,extended 50 mg PO DAILY bladder spasms #90 03/20/21 release 24 hr (Myrbetriq) tabs omeprazole 20 mg capsule,delayed 20 mg PO DAILY #90 caps 04/10/21 release trazodone 50 mg tablet 150 mg PO HS #270 tabs 06/12/21 buspirone 30 mg tablet 30 mg PO BID #180 tabs 10/04/21 vit C,R-Lk-mnbgy-lutein-zeaxan 1 tab PO DAILY 10/04/21 [PreserVision AREDS-2] sertraline 50 mg tablet See Rx Instructions .Route 11/08/21 .COMPLEX #270 tabs Current Visit Medications: Current Medications Generic Name Dose Route Start Last Admin Trade Name Jamesq PRN Reason Stop Dose Admin Ringer's Solution 1,000 mls @ 80 mls/hr 12/07/21 06:00 12/07/21 07:02 IV 12/07/21 23:59 80 mls/hr INFUSION ALEKSEY Administration Cefazolin Sodium/Dextrose 2 gm in 50 mls @ 100 mls/hr 12/07/21 06:00 Ancef Duplex IVPB 12/07/21 23:59 PREOP ALEKSEY IV Miscellaneous Supplies 1 each 12/07/21 06:00 Iv Access IV 12/07/21 23:59 DIRECTED ALEKSEY Sodium Chloride 0 ml 12/07/21 06:00 Normal Saline Flush 10 Ml Syr IV 12/07/21 23:59 PRN PRN Sodium Chloride 0 ml 12/07/21 06:00 Normal Saline 10 Ml Vial IJ 12/07/21 23:59 DIRECTED PRN Sterile Water 0 ml 12/07/21 06:00 Water,Injection,Sterile 10 Ml Vial IJ 12/07/21 23:59 DIRECTED PRN PFSH Active Problems Active Problems: Problem Status Onset Code Primary osteoarthritis involving multiple joints M15.0 Cervical spondylosis without myelopathy M47.812 Hx of bladder cancer Z85.51 Iron deficiency E61.1 Fibromyalgia M79.7 Depression F32.9 Hypercholesterolemia E78.00 GERD (gastroesophageal reflux disease) K21.9 Hypertension I10 Macrocytosis without anemia D75.89 Mixed stress and urge urinary incontinence N39.46 Vitamin D deficiency E55.9 Cardiac murmur R01.1 Osteopenia determined by x-ray M85.80 Chronic shortness of breath R06.02 Anxiety F41.9 Family history of colon cancer Z80.0 Change in consistency of stool R19.5 Short of breath on exertion R06.02 Lumbar pain M54.50 Postmenopausal Bleeding N95.0 Medical History Medical History Arthritis of carpometacarpal (CMC) joint of left thumb s/p trapezial resection 11/30/2019 Arthritis of carpometacarpal (CMC) joint of right thumb Arthritis of left acromioclavicular joint Arthrosis of shoulder Bilateral dry eyes Closed fracture of right distal fibula (11/07/18) Elevated bilirubin Fracture of phalanx of right foot, closed (11/07/18) Fracture of rib Hip pain, right Hx of tuberculosis age 2 Incontinence of feces Pt. states this is no longer current Macular degeneration AREDS Osteoarthritis of left AC (acromioclavicular) joint Primary localized osteoarthritis of right hip Skin lesion of right ear Trochanteric bursitis Trochanteric bursitis, left hip Steroid injection: 11/18/2020; 08/19/2020 Trochanteric bursitis, right hip Depo-Medrol injection: 11/18/2020 Ulnar neuropathy at elbow Surgical History Surgical History Closed fracture of greater trochanter of right femur (06/07/20) s/p ORIF Greater Trochanter Periprosthetic Fracture (01/13/21) H/O arthroscopy of shoulder left shoulder one spurs removed. H/O esophagogastroduodenoscopy (~2018) History of carpal tunnel release History of colonoscopy History of elbow surgery History of Sarika fundoplication History of total bilateral knee replacement (TKR) History of total left hip arthroplasty (04/20/16) History of total right hip replacement (06/07/20) Hx of cholecystectomy Hx of cholecystectomy Status post total replacement of left hip (~04/11/21) Dr Mcdowell, [facility] Tobacco Smoking/Tobacco Use Status: Never Alcohol Alcohol Intake: current Alcohol intake frequency: a few times a week Alcohol type: beer Substance Use Substance use: Never Substance use type: does not use Vital Signs and Lab Results Vital Signs Most Recent Vital Signs in EMR: Most Recent Vital Signs Temp Pulse Resp BP Pulse Ox 36.5 C 78 18 125/65 95 12/07/21 06:15 12/07/21 06:15 12/07/21 06:15 12/07/21 06:15 12/07/21 06:15 Lab Results Blood Type / Crossmatch: No Data to Display Complete Blood Count: No Data to Display Complete Metabolic Panel: No Data to Display Liver Function Panel: No Data to Display Coagulation Panel: No Data to Display Cardiac Panel: No Data to Display Arterial Blood Gas: No Data to Display Venous Blood Gas: No Data to Display Pancreas Panel: No Data to Display Thyroid Panel: No Data to Display Infectious Disease: No Data to Display Blood Cultures: No Data to Display Toxicology Panel: No Data to Display Imaging and Studies Imaging and Studies Study information below may be from another EMR and interpreted by another pr ben. Please see original notes in EMR for more complete details. Stress Test Summary: 11/14/21:Stress ECG Conclusion 1. Resting electrocardiogram was within normal limits 2. Patient exercised on the Buck protocol and completed a workload of 7 METS, stopping due to fatigue 3. Normal heart rate and blood pressure response to exercise. Patient achieved 91% of predicted heart rate for age 4. There was no electrocardiographic evidence of myocardial ischemia 5. There were no significant dysrhythmias Espinosa Treadmill Score is 5.7 which is Low risk. Echocardiogram Summary: 10/10/2012: LVEF 65%, mild MR/TR. Pulmonary Function Summary: 2020: No evidence of obstructive airways dz. Significant bronchodilator response. Restrictive pattern. Anesthesia Assessment and Plan Anesthesia History Personal History: No History of Anesthesia Complications Family History: No Family History of Anesthesia Complications Exercise Tolerance Exercise Tolerance: Metabolic Equivalents<4 (Chronic dyspnea on exertion) Pertinent Negatives Pertinent Negatives: No Symptoms of GERD (Controlled with meds), No Major Cardiovascular Symptoms or Complaints, No Major Pulmonary Symptoms or Complaints and No History of CVA/TIA Cardiac & Pulmonary Exam Cardiac Exam: Normal S1/S2 Heart Sounds Pulmonary Exam: Clear Bilateral Breath Sounds Implantable Cardiac Device Does patient have a Pacemaker or an ICD?: No Airway Exam Known Difficult Airway: No Mallampati Class: 3 Mouth Opening: Narrow (< 3cm) Thyromental Distance: Less than 3 cm Neck Range of Motion: Limited ROM Neck Circumference: Normal Teeth Condition: Removable Dentures/Plates Upper, Removable Dentures/Plates Lower and Edentulous ASA Classification ASA Score: ASA 3 Emergency Case?: No NPO Status NPO Status: NPO Clears >2 hours, Solids >8 hours Anesthesia Plan Resuscitation Status: Full Code Anesthesia Technique: General Anesthesia Airway Planned: Natural Airway Monitors Used: Standard Monitors
[2021-12-07 07:24] VITALS: BMI 27.6
[2021-12-07] MEDS: ceFAZolin 2 GM/50 ML BAG IVPB (07:34)
[2021-12-07] MEDS: Lidocaine 2% Jelly 6 ML SYR (07:48)
--- NOTE | 2021-12-07 07:58 | W.PM.DSUDISC ---
Date of service: 12/07/21 Time of Service: 07:59 Discharge Plan Disposition Patient Disposition: HOME Condition: Good Discharge Details Reason For Visit: cystoscopy Attending Provider: Andrey Shukla Primary Care Provider: Laura Jenkins Home Meds and New Rx's Prescriptions: No Action albuterol sulfate 90 mcg/actuation HFA aerosol inhaler See Rx Instructions IH Q4H PRN (Reason: Wheezing or cough) Qty: 8.5 0RF Rx Instructions: 1-2 puffs IH Q4H PRN; Use with spacer gabapentin 800 mg tablet 800 mg PO TID Qty: 270 3RF Rx Instructions: Fibromyalgia vit C,N-Yg-kqtlv-lutein-zeaxan [PreserVision AREDS-2] 1 tab PO DAILY Rx Instructions: 1 daily buspirone 30 mg tablet 30 mg PO BID Qty: 180 3RF cholecalciferol (vitamin D3) 50 mcg (2,000 unit) capsule 50 mcg PO DAILY Qty: 90 3RF Rx Instructions: Osteopenia amlodipine 2.5 mg tablet 2.5 mg PO DAILY Qty: 90 3RF Rx Instructions: Blood pressure lisinopril 20 mg tablet 20 mg PO DAILY Qty: 90 3RF Rx Instructions: Blood pressure Myrbetriq 50 mg tablet extended release 24 hr 50 mg PO DAILY Qty: 90 3RF diclofenac sodium [Arthritis Pain (diclofenac)] 1 % gel 2 g topical BID PRN (Reason: hand arthritis) Qty: 100 3RF Rx Instructions: Hand arthritis; max 32G/24 hrs on all joints omeprazole 20 mg capsule,delayed release(DR/EC) 20 mg PO DAILY Qty: 90 3RF loperamide 2 mg capsule 2 mg PO DAILY PRN Rx Instructions: Diarrhea (OTC) atorvastatin [Lipitor] 40 mg tablet 40 mg PO DAILY Qty: 90 3RF trazodone 50 mg tablet 150 mg PO HS Qty: 270 3RF sertraline 50 mg tablet See Rx Instructions .ROUTE .COMPLEX Qty: 270 3RF Dose Instruction: TAKE 3 TABLETS DAILY; MAXIMUM DAILY DOSE 150 MG. (DISCONTINUE PAXIL) Rx Instructions: TAKE 3 TABLETS DAILY; MAXIMUM DAILY DOSE 150 MG. (DISCONTINUE PAXIL) acetaminophen 500 mg capsule 1,000 mg PO Q8H PRN PRNQty: 90 0RF Discharge Instructions Additional Instructions: followup visit 1 year (for her bladder cancer history) but ask patient to call us in @ 1 week with a progress report about her incontinence Activity:: Activity as Tolerated Shower/Bathe:: 24 hours Diet:: As Tolerated Discharge Orders Discharge Orders: Discharge Order (Routine); Ordered 12/07/21 Ordered By: Andrey Shukla DS: Diagnosis Discharge Diagnosis (1) Hx of bladder cancer: Status: Chronic (2) Mixed stress and urge urinary incontinence: Status: Acute
--- NOTE | 2021-12-07 08:03 | W.PM.OP ---
Date of service: 12/07/21 Time of Service: 08:03 Operative Note Operative Note DATE OF PROCEDURE: 12/07/21 PRE-OP DIAGNOSIS: 1. Bladder Cancer 2. Urinary Incontinence due to ISD POST-OP DIAGNOSIS: same PROCEDURE: cystoscopy, transurethral injection Coaptite at bladder neck SURGEON: Andrey Shukla ANESTHESIA TYPE: Local By Surgeon and General:No Airway Refer to Anesthesia Record ESTIMATED BLOOD LOSS: 5 PATHOLOGY: none sent COMPLICATIONS: None Patient was transported to: same day Patient's condition: stable Implants: 1 vial Coaptite Indications: 71-year-old woman who has a history of bladder cancer. She is due for surveillance cystoscopy. She also has a history of urinary incontinence which responded to an injection of a bulking agent at the bladder neck previously. She is interested in a repeat injection as her incontinence has worsened lately Findings: no recurrent bladder tumor Procedure Description: Patient was brought to the operating room on 12/07/2021. After successful induction of general anesthesia without intubation, she was placed in the dorsal lithotomy position. She was given a dose of preoperative IV antibiotics. Her genitalia was prepped. 2% Xylocaine jelly was instilled into the urethra to act as a local anesthetic. A 22 Malian cystoscope was passed through the urethra into the bladder. The bladder was inspected using both a 30 and a 70 degree lens. Both ureteral orifices appeared normal with no blood coming from either side. The remainder of the bladder was smooth-walled with no papillary or nodular lesions. Based on the cystoscopic appearance, there is no evidence of tumor recurrence. We then withdrew the scope into the urethra. The bladder neck appeared open at rest. We removed the cystoscope and replaced it with a 20 Malian urethrotome sheath. We used a transurethral injection system to inject 1 vial of Coaptite submucosally at the bladder neck. After the injection was completed, the bladder neck appeared closed at rest. The scope was removed and the bladder was drained with a 14 Malian straight catheter. The catheter was then removed.
[2021-12-07 08:05] VITALS: BP 98/52; PULSE 62; RESP 16; TEMP 36.2; O2SAT 92
[2021-12-07 08:25] VITALS: BP 117/58; PULSE 65; RESP 18; TEMP 36.2; O2SAT 92
--- NOTE | 2021-12-07 08:34 | W.ANESPOSTOP ---
Postoperative Evaluation Date, Time and Location Date Performed: 12/07/21 Time Performed: 08:10 Patient Location: Day Surgery Unit Vital Signs Most Recent Imported Vital Signs: Most Recent Vital Signs Temp Pulse Resp BP Pulse Ox 36.2 C L 62 16 98/52 L 92 12/07/21 08:05 12/07/21 08:05 12/07/21 08:05 12/07/21 08:05 12/07/21 08:05 Pain Score Most Recent Pain Score: Most Recent Pain Score Pain Level 0 12/07/21 08:05 Assessment Mental Status: Awake (Alert & Oriented to Patient Baseline) Airway and Respiratory Function: Patent airway with normal (patient baseline) respiratory exam Cardiovascular Function: Hemodynamically Stable Hydration Status: Adequately Hydrated Nausea & Vomiting: No Nausea or Vomiting Pain: Pt. Denies Any Pain Peripheral Nerve Block: Patient did not receive a nerve block
== END 2021-12-07 09:35 | disposition home or self-care (01) ==
PROVIDERS: PCP Nurse Practitioner Adult Health; Visit Provider Urology
PROC: (CPT 51715; principal; 2021-12-07 07:30)
DX: Z08 Encounter for follow-up examination after completed treatment for malignant neoplasm (principal); Z85.51 Personal history of malignant neoplasm of bladder; N36.42 Intrinsic sphincter deficiency (ISD); N39.46 Mixed incontinence
CPT/HCPCS: 51715; J0690; J1885; J2405; L8606

== ENCOUNTER → 2022-01-09 12:20 | Outpatient (CLI) | payer OTHER, MEDICAID, SELFPAY ==
--- NOTE | 2022-01-09 13:37 | DI.US_ITS ---
APPROVED REPORT EXAM: Comprehensive 2D, Doppler, and color-flow Echocardiogram Patient Location: Out-Patient Parachute Taper: Rayne Martinez RDCS (AE) Indications: Reassess valves, Rheumatic tricuspid , Murmur Other Information Study Quality: Adequate Conclusion Normal left ventricular wall thickness and chamber size. Estimated ejection fraction is 65%. Wall m otion is normal Normal right ventricular size and systolic function The left atrium is mildly dilated. The right atrium is normal in size Aortic valve is sclerotic and trileaflet without stenosis or regurgitation Mild mitral annular calcification. Mild mitral regurgitation Normal tricuspid valve with moderate regurgitation. Estimated right ventricular systolic pressure is 39 mmHg Wall motion Left Ventricle The left ventricle is normal size. The left ventricular systolic function is normal. The left ventric ular ejection fraction is within the normal range. There is normal left ventricular wall thickness. T here is normal LV segmental wall motion. There is no ventricular septal defect visualized. LVEF is 65 %. Right Ventricle The right ventricle is normal size. The right ventricular systolic function is normal. The RVSP is 38 .6_ mmHg. Atria Left atrium is mildly dilated. The right atrium size is normal. The interatrial septum is intact with no evidence for an atrial septal defect. Aortic Valve The Aortic valve is sclerotic. Aortic valve is trileaflet. No hemodynamically significant valvular ao rtic stenosis. No aortic regurgitation is present. Mitral Valve Mild mitral annular calcification. No evidence of mitral valve stenosis. Mild mitral regurgitation. Tricuspid Valve The tricuspid valve is normal in structure. There is no tricuspid valve stenosis. Moderate tricuspid regurgitation. Pulmonic Valve The pulmonary valve is normal in structure. There is no pulmonic valvular stenosis. There is no pulmo caleb valvular regurgitation. Great Vessels The aortic root is normal in size. The ascending aorta is normal in size. Aortic arch is normal in ca liber. IVC is normal in size and collapses >50% with inspiration. Pericardium There is no pericardial effusion. 2D Dimensions IVSD d PLAX 1.03 cm F: 0.6-1.0 LV Vol A2C d MOD 66.0 mL LVPW d PLAX 1.04 cm F: 0.6 - 1.0 LV Vol A4C d MOD 64.4 mL LVID d PLAX 3.81 cm F: 3.8 - 5.2 LA vol/ BSA A2C s A-L 29.5 mL/m2 LVDs 2.55 cm F: 2.2 - 3.5 LA vol/ BSA A4C s A-L 31.8 mL/m2 Ao Root d 2.86 cm F: 2.7 - 3.3 LA Vol/ BSA Biplane s A-L 32.2 mL/m2 RA Area A4C 10.25 cm2 LA Area A4C s MOD 19.73 cm2 RA Vol/ BSA A4C s A-L 12.1 mL/m2 LA Area A2C s MOD 18.07 cm2 Ao Asc Diam d 2.85 cm F: 2.3 - 3.1 LV EF A4C MOD 65.6 % LV EF Teichholz 61.5 % LV EF A2C MOD 65.0 % LVEF (Osorio's) 65.37 % F: 54 - 74 LV EF Biplane MOD 65.4 % LV Volume 52.18 mL F: 46 - 106 SV 43.66 mL LV Volume Index 29.48 mL/m2 F: 29 - 61 SV Index 24.56 mL/m2 LV Vol Biplane MOD 66.8 mL FS 32.45 % M-Mode TAPSE 2.76 cm (M/F) >1.7 LV Diastology MV E' medial 0.067 (>0.07 m/s) E/A Ratio 0.8 LV E/e MED 16.30 (<14) MV E Vmax 1.09 (0.4-1.3 m/s) MV E' lateral 0.103 (>0.1 m/s) MV A Vmax 1.40 (0.4-1.3 m/s) LV E/e LAT 10.60 (<14) MV E/A Ratio 0.77 MV E/E' medial 16.32 MV E/E' lateral 10.62 Aortic Valve LVOT Area 2.96 cm2 AoV Area Vmax 2.06 cm2 LVOT Vmax 1.57 m/s AoV Area/ BSA (Vmax) 1.16 cm2/m2 LVOT Mean Andrew. 1.02 m/s MARGE Mean Andrew. 2.04 cm2 LVOT Peak Grad 9.9 mmHg MARGE Mean Andrew. Index 1.15 cm2/m2 LVOT Mean Grad 5.0 mmHg LVOT VTI 0.350 m LVOT Diam s 1.90 cm AoV Vmax 2.26 m/s Velocity Ratio 0.69 AoV Mean Andrew. 1.48 m/s AoV Peak Grad 20.4 mmHg LVOT SV 103.75 mL AoV Mean Grad 10.1 mmHg AoV VTI 0.463 m AoV Area VTI 2.24 cm2 AoV Area/ BSA (VTI) 1.26 cm/m2 Mitral Valve MV DT 214 (160-240 msec) MV PHT 62 msec MV Area PHT 3.54 cm2 MV VTI 0.444 m MV VTI Annulus 0.442 m MV Area VTI 2.33 (4.0-6.0 cm2) Pulmonary Valve PV Vmax 1.20 (0.5-1.5 m/s) RVOT Peak Gr. 3.38 mmHg PV Peak Grad 5.8 mmHg RVOT Mean Gr. 1.85 mmHg PV Mean Grad 3.3 mmHg RVOT VTI 0.218 m PV VTI 0.294 m RVOT Vmax 0.92 m/s Tricuspid Valve TR Peak Grad 35.5 mmHg TR Vmax 2.98 m/s RA Pressure 3.00 mmHg RVSP (TR) 38.6 mmHg
== END ==
PROVIDERS: PCP Nurse Practitioner Adult Health; Visit Provider Nurse Practitioner Adult Health
DX: I07.1 Rheumatic tricuspid insufficiency (principal); I34.0 Nonrheumatic mitral (valve) insufficiency; R01.1 Cardiac murmur, unspecified; R06.02 Shortness of breath
CPT/HCPCS: 93306

== ENCOUNTER 2022-02-18 08:30 | Emergency (ER) | payer OTHER, MEDICAID, SELFPAY ==
[2022-02-18 08:35] VITALS: BP 159/78; PULSE 103; RESP 18; TEMP 36.4; O2SAT 93
[2022-02-18 08:44] VITALS: RESP 18
--- NOTE | 2022-02-18 08:45 | DI.RAD_ITS ---
Exam(s) XR PORTABLE CHEST AP EXAM: XR PORTABLE CHEST AP CLINICAL HISTORY: cough TECHNIQUE: 2D digital imaging was performed. COMPARISON: CR XR RIBS RT W PA LAT CHEST from 10/04/2020 FINDINGS: LUNGS: Clear. No pleural abnormality seen. HEART: Normal size. AORTA: Normal diameter. BONES: Unremarkable for age. Prior resection distal clavicle. Soft tissues: Unremarkable. IMPRESSION: No acute findings. DATA REPOSITORY: RADIATION DOSE DELIVERED:
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
[2022-02-18] MEDS: Dexamethasone 10 MG/ML VIAL IVP (09:05)
[2022-02-18 09:15] LABS: Abs Immature Grans 0.01 10^3/uL (0.0-0.06); Absolute Basophil Count 0.03 10^3/uL (0.0-0.2); Absolute Eosinophil Count 0.17 10^3/uL (0.0-0.7); Absolute Lymphocyte Count 0.65 10^3/uL (1.2-3.4); Absolute Monocyte Count 0.39 10^3/uL (0.1-0.8); Absolute Neutrophil Count 3.64 10^3/uL (1.2-6.7); Basophils % 0.6; Eosinophils % 3.5; HCT 44.1 % (36.0-46.0); HGB 14.2 g/dL (11.2-15.7); Immature Grans % 0.2; Lymphocytes % 13.3; MCH 32.2 pg (27.0-33.0); MCHC 32.2 % (32.0-36.0); MCV 100 fL (80-95); MPV 9.7 fL (8.0-11.0); Neutrophils % 74.4; Platelet Count 159 10^3/uL (130-400); RBC 4.41 10^6/uL (3.93-5.22); RDW 13.5 % (11.7-14.6); RDW-SD 50.2 fL; WBC 4.89 10^3/uL (4.4-10.8)
[2022-02-18 09:30] LABS: ALT 35 U/L (14-59); AST 31 U/L (15-37); Albumin 4.3 g/dL (3.4-5.0); Alkaline Phosphatase 84 U/L (46-116); Anion Gap 8.1 mmol/L (3-11); BUN 10 mg/dL (7-18); Bilirubin, Total 0.7 mg/dL (0.2-1.0); CO2 26.9 mmol/L (21.0-32.0); CREATININE 0.8 mg/dL (0.55-1.02); Calcium 8.9 mg/dL (8.5-10.1); Chloride 106 mmol/L (98-107); Estimated GFR 78.24 (mL/min/1.73m2); Glucose 103 mg/dL (74-106); Potassium 3.6 mmol/L (3.5-5.1); Sodium 141 mmol/L (136-145); Total Protein 8.2 g/dL (6.4-8.2)
--- NOTE | 2022-02-18 09:41 | DI.VRAD_ITS ---
PROCEDURE INFORMATION: Exam: XR Chest Exam date and time: 02/18/2022 9:01 AM Age: 71 years old Clinical indication: Cough TECHNIQUE: Imaging protocol: Radiologic exam of the chest. Views: 1 view. COMPARISON: CR XR RIBS RT W PA LAT CHEST 04/10/2020 09:59 FINDINGS: Lungs: Lungs are clear with no infiltrate or nodule. Pleural spaces: Unremarkable. No pleural effusion. No pneumothorax. Heart/Mediastinum: Cardiomediastinal silhouette is normal. Bones/joints: Unremarkable. IMPRESSION: No active cardiopulmonary disease. Dictated and Authenticated by: Ulises Maradiaga MD. Ordering:LENCHO Cruz MD
[2022-02-18 09:57] LABS: COVID-19 PCR Negative (Negative); Influenza A PCR Negative (Negative); Influenza B PCR Negative (Negative); RSV PCR Negative (Negative)
[2022-02-18 10:01] LABS: Source Nasopharynx
[2022-02-18 10:24] VITALS: BP 117/61; PULSE 72; RESP 16; O2SAT 95
== END 2022-02-18 10:29 | disposition home or self-care (01) ==
PROVIDERS: Emergency Provider Emergency Medicine; PCP Nurse Practitioner Adult Health
DX: J32.9 Chronic sinusitis, unspecified (principal); E78.5 Hyperlipidemia, unspecified; M79.7 Fibromyalgia; I10 Essential (primary) hypertension; Z20.822 Contact with and (suspected) exposure to COVID-19
CPT/HCPCS: 36415; 80053; 87637; 96374; 99284; 71045; 83735; 85025; J1100

== ENCOUNTER 2022-08-24 07:52 | Day surgery (SDC) | payer OTHER, MEDICAID, SELFPAY ==
[2022-08-24 08:15] VITALS: BP 142/74; PULSE 69; RESP 16; TEMP 36.4; O2SAT 95
[2022-08-24] MEDS: Tropicam./Phenyleph. (1/2.5%) 5 ML BTL OS ×3 (08:30→08:40)
--- NOTE | 2022-08-24 08:32 | ANES.PREOP_ITS ---
General Info Date of Service Date Performed: 08/24/22 Height: 5 ft 3 in Weight: 73.028 kg Body Mass Index (BMI): 28.5 Surgical Procedure: Operation Date: 08/24/22 09:55 Proposed Procedure Side Surgeon p Cataract Extraction with IOL Implant Left Kartik Jacques MD Actual Procedure Side Surgeon p Cataract Extraction with IOL Implant Left Kartik Jacques MD Pre-Op Diagnosis Post-Op Diagnosis CATARACT OS CATARACT OS Meds Allergies and Home Medications Allergies Allergy/AdvReac Type Severity Reaction Status Date / Time oxybutynin Allergy Unknown angioedema Verified 08/24/22 08:26 paroxetine AdvReac Severe Withdrawal Verified 08/24/22 08:26 off it (hallucinations, emotional lability) risedronate sodium AdvReac Severe painful Verified 08/24/22 08:26 legs unable to stand confidently Home Medication Medication Instructions Recorded loperamide 2 mg capsule 2 mg PO DAILY PRN 03/21/20 cholecalciferol (vitamin D3) 50 50 mcg PO DAILY #90 caps 08/10/20 mcg (2,000 unit) capsule acetaminophen 500 mg capsule 1,000 mg PO Q8H PRN PRN #90 caps 01/15/21 buspirone 30 mg tablet 30 mg PO BID #180 tabs 10/04/21 vit C,H-Va-relsl-lutein-zeaxan 1 tab PO DAILY 10/04/21 [PreserVision AREDS-2] sertraline 50 mg tablet See Rx Instructions .Route 11/08/21 .COMPLEX #270 tabs atorvastatin 40 mg tablet (Lipitor) 40 mg PO DAILY #90 tabs 02/07/22 cholestyramine (with sugar) 4 gram 1 pwd PO DAILY diarrhea #378 grams 02/19/22 oral powder gabapentin 800 mg tablet 800 mg PO TID #270 tab-caps 02/28/22 albuterol sulfate 90 mcg/actuation See Rx Instructions inhalation Q4H 03/21/22 aerosol inhaler PRN Wheezing, cough, shortness of breath #8.5 grams amlodipine 2.5 mg tablet 2.5 mg PO DAILY #90 tabs 03/21/22 diclofenac sodium 1 % topical gel 2 g topical BID PRN hand arthritis 03/21/22 (Arthritis Pain (diclofenac)) #100 grams lisinopril 20 mg tablet 20 mg PO DAILY #90 tabs 03/21/22 mirabegron 50 mg tablet,extended 50 mg PO DAILY bladder spasms #90 03/21/22 release 24 hr (Myrbetriq) tabs omeprazole 20 mg capsule,delayed 20 mg PO DAILY #90 caps 03/21/22 release trazodone 50 mg tablet 150 mg PO HS #270 tabs 03/21/22 valacyclovir 1 gram tablet 1,000 mg PO Q8H #24 tabs 05/24/22 (Valtrex) Current Visit Medications: Current Medications Generic Name Dose Route Start Last Admin Trade Name Freq PRN Reason Stop Dose Admin Acetaminophen 1,000 mg 08/24/22 06:00 Acetaminophen 500 Mg Tab PO 09/23/22 05:59 Q4H PRN PRN Balanced Salt Solution 500 ml 08/24/22 06:00 Balanced Salt Soln.-Plus 500 Ml Bag OP 09/23/22 05:59 DIRECTED ALEKSEY Miscellaneous Medication 0 ml 08/24/22 06:00 Prednisolone 1%, Moxifloxacin 0.5%, Nepafenac 0.1% 5ml Btl OS 09/23/22 05:59 DIRECTED ALEKSEY Miscellaneous Medication 0 ml 08/24/22 06:00 Tropicam./Phenyleph. (1/2.5%) 5 Ml Btl OS 09/23/22 05:59 DIRECTED ALEKSEY Tetracaine HCl 0 ml 08/24/22 06:00 Tetracaine 0.5% 4 Ml Btl OS 09/23/22 05:59 DIRECTED ALEKSEY PFSH Active Problems Active Problems: Problem Status Onset Code Nuclear age-related cataract, left eye H25.12 Otalgia of left ear H92.02 History of skin cancer of unknown type Z85.828 Tricuspid valve insufficiency I07.1 Mitral regurgitation I34.0 Primary osteoarthritis involving multiple joints M15.0 Cervical spondylosis without myelopathy M47.812 Hx of bladder cancer Z85.51 Iron deficiency E61.1 Fibromyalgia M79.7 Depression F32.9 Hypercholesterolemia E78.00 GERD (gastroesophageal reflux disease) K21.9 Hypertension I10 Macrocytosis without anemia D75.89 Mixed stress and urge urinary incontinence N39.46 Vitamin D deficiency E55.9 Cardiac murmur R01.1 Osteopenia determined by x-ray M85.80 Chronic shortness of breath R06.02 Anxiety F41.9 Family history of colon cancer Z80.0 Change in consistency of stool R19.5 Short of breath on exertion R06.02 Lumbar pain M54.50 Postmenopausal Bleeding N95.0 Medical History Medical History Arthritis of carpometacarpal (CMC) joint of left thumb s/p trapezial resection 11/30/2019 Arthritis of carpometacarpal (CMC) joint of right thumb Arthritis of left acromioclavicular joint Arthrosis of shoulder Bilateral dry eyes Closed fracture of right distal fibula (11/07/18) Elevated bilirubin Fracture of phalanx of right foot, closed (11/07/18) Fracture of rib Hip pain, right Hx of tuberculosis age 2 Incontinence of feces Pt. states this is no longer current Macular degeneration AREDS Osteoarthritis of left AC (acromioclavicular) joint Primary localized osteoarthritis of right hip Skin lesion of right ear Trochanteric bursitis Trochanteric bursitis, left hip Steroid injection: 11/18/2020; 08/19/2020 Trochanteric bursitis, right hip Depo-Medrol injection: 11/18/2020 Ulnar neuropathy at elbow Surgical History Surgical History Closed fracture of greater trochanter of right femur (06/07/20) s/p ORIF Greater Trochanter Periprosthetic Fracture (01/13/21) H/O arthroscopy of shoulder left shoulder one spurs removed. H/O esophagogastroduodenoscopy (~2018) History of carpal tunnel release History of colonoscopy History of elbow surgery History of Sarika fundoplication History of total bilateral knee replacement (TKR) History of total left hip arthroplasty (04/20/16) History of total right hip replacement (06/07/20) Hx of cholecystectomy Hx of cholecystectomy Status post total replacement of left hip (~04/11/21) Dr Mcdowell, [facility] Tobacco Smoking/Tobacco Use Status: Never Alcohol Alcohol Intake: current Alcohol intake frequency: a few times a week Alcohol type: beer Substance Use Substance use: Never Substance use type: does not use Vital Signs and Lab Results Vital Signs Most Recent Vital Signs in EMR: Temp Pulse Resp BP Pulse Ox 36.4 C L 69 16 142/74 H 95 08/24/22 08:15 08/24/22 08:15 08/24/22 08:15 08/24/22 08:15 08/24/22 08:15 Lab Results Blood Type / Crossmatch: No Data to Display Complete Blood Count: No Data to Display Complete Metabolic Panel: No Data to Display Liver Function Panel: No Data to Display Coagulation Panel: No Data to Display Cardiac Panel: No Data to Display Arterial Blood Gas: No Data to Display Venous Blood Gas: No Data to Display Pancreas Panel: No Data to Display Thyroid Panel: No Data to Display Infectious Disease: No Data to Display Blood Cultures: No Data to Display Toxicology Panel: No Data to Display Imaging and Studies Imaging and Studies Study information below may be from another EMR and interpreted by another provider. Please see original notes in EMR for more complete details. Stress Test Summary: 11/14/21:Stress ECG Conclusion 1. Resting electrocardiogram was within normal limits 2. Patient exercised on the Buck protocol and completed a workload of 7 METS, stopping due to fatigue 3. Normal heart rate and blood pressure response to exercise. Patient achieved 91% of predicted heart rate for age 4. There was no electrocardiographic evidence of myocardial ischemia 5. There were no significant dysrhythmias Espinosa Treadmill Score is 5.7 which is Low risk. Echocardiogram Summary: 10/10/2012: LVEF 65%, mild MR/TR. Pulmonary Function Summary: 2020: No evidence of obstructive airways dz. Significant bronchodilator response. Restrictive pattern. Anesthesia Assessment and Plan Anesthesia History Personal History: No History of Anesthesia Complications Family History: No Family History of Anesthesia Complications Exercise Tolerance Exercise Tolerance: Metabolic Equivalents<4 Pertinent Negatives Pertinent Negatives: No Major Cardiovascular Symptoms or Complaints, No History of CVA/TIA and Other (CAIN, TB as a child) Cardiac & Pulmonary Exam Cardiac Exam: Heart Murmur Present Pulmonary Exam: Clear Bilateral Breath Sounds Implantable Cardiac Device Does patient have a Pacemaker or an ICD?: No Airway Exam Known Difficult Airway: No Mallampati Class: 3 Mouth Opening: Narrow (< 3cm) Thyromental Distance: Less than 3 cm Neck Range of Motion: Limited ROM Neck Circumference: Normal Teeth Condition: Removable Dentures/Plates Upper, Removable Dentures/Plates Lower and Edentulous ASA Classification ASA Score: ASA 3 Emergency Case?: No NPO Status NPO Status: NPO Clears >2 hours, Solids >8 hours Anesthesia Plan Resuscitation Status: Full Code Anesthesia Technique: MAC Anesthesia Airway Planned: Natural Airway Monitors Used: Standard Monitors
[2022-08-24 08:53] VITALS: BMI 28.5
[2022-08-24] MEDS: Povidone-Iodine Ophth 30 ML BTL ×2 (10:00→10:15)
[2022-08-24] MEDS: Tetracaine 0.5% 4 ML BTL OS ×2 (10:01→10:08)
[2022-08-24] MEDS: Lidocaine 1% Pres-Free 5 ML VIAL (10:02)
[2022-08-24] MEDS: Phenylephrine/Lidocaine (15/10) MG/ML 1 ML VIAL (10:03)
[2022-08-24] MEDS: Duovisc Viscoelastic System EACH 1 EACH (10:04)
[2022-08-24] MEDS: Balanced Salt Soln.-PLUS 500 ML BAG OP (10:04)
[2022-08-24 10:21] VITALS: BP 112/82; PULSE 69; RESP 18; TEMP 36; O2SAT 96
--- NOTE | 2022-08-24 10:22 | W.PM.DSUDISC ---
Date of service: 08/24/22 Time of Service: 10:22 Discharge Plan Disposition Patient Disposition: Home Discharge Details Attending Provider: Kartik Jacques Primary Care Provider: Laura Jenkins Home Meds and New Rx's Prescriptions: No Action vit C,E-Qf-rxtwl-lutein-zeaxan [PreserVision AREDS-2] 1 tab PO DAILY Rx Instructions: 1 daily buspirone 30 mg tablet 30 mg PO BID Qty: 180 3RF amlodipine 2.5 mg tablet 2.5 mg PO DAILY Qty: 90 3RF Rx Instructions: Blood pressure diclofenac sodium [Arthritis Pain (diclofenac)] 1 % gel 2 g topical BID PRN (Reason: hand arthritis) Qty: 100 3RF Rx Instructions: Hand arthritis; max 32G/24 hrs on all joints lisinopril 20 mg tablet 20 mg PO DAILY Qty: 90 3RF Rx Instructions: Blood pressure Myrbetriq 50 mg tablet extended release 24 hr 50 mg PO DAILY Qty: 90 3RF omeprazole 20 mg capsule,delayed release(DR/EC) 20 mg PO DAILY Qty: 90 3RF trazodone 50 mg tablet 150 mg PO HS Qty: 270 3RF albuterol sulfate 90 mcg/actuation HFA aerosol inhaler See Rx Instructions IH Q4H PRN (Reason: Wheezing, cough, shortness of breath) Qty: 8.5 2RF Rx Instructions: Use with spacer cholestyramine (with sugar) 4 gram powder 1 pwd PO DAILY Qty: 378 0RF Rx Instructions: administer w/meal; avoid other meds within 1hr before or 4-6hr after dose valacyclovir [Valtrex] 1 gram tablet 1,000 mg PO Q8H Qty: 24 0RF cholecalciferol (vitamin D3) 50 mcg (2,000 unit) capsule 50 mcg PO DAILY Qty: 90 3RF Rx Instructions: Osteopenia loperamide 2 mg capsule 2 mg PO DAILY PRN Rx Instructions: Diarrhea (OTC) sertraline 50 mg tablet See Rx Instructions .ROUTE .COMPLEX Qty: 270 3RF Dose Instruction: TAKE 3 TABLETS DAILY; MAXIMUM DAILY DOSE 150 MG. (DISCONTINUE PAXIL) Rx Instructions: TAKE 3 TABLETS DAILY; MAXIMUM DAILY DOSE 150 MG. (DISCONTINUE PAXIL) atorvastatin [Lipitor] 40 mg tablet 40 mg PO DAILY Qty: 90 3RF gabapentin 800 mg tablet 800 mg PO TID Qty: 270 3RF Rx Instructions: Fibromyalgia acetaminophen 500 mg capsule 1,000 mg PO Q8H PRN PRNQty: 90 0RF Discharge Instructions Stand Alone Forms: Post-op Topical Cataract, Arianna Hood (DSU) Discharge Orders Discharge Orders: Discharge Order (Routine); Ordered 08/24/22 Ordered By: Kartik Jacques DS: Diagnosis Discharge Diagnosis (1) Nuclear age-related cataract, left eye: Status: Resolved
--- NOTE | 2022-08-24 10:23 | ROE_ITS ---
Date of service: 08/24/22 Time of Service: : Operative Note Operative Note DATE OF PROCEDURE: 08/24/22 PRE-OP DIAGNOSIS: Nuclear cataract, left eye POST-OP DIAGNOSIS: same PROCEDURE: Cataract extraction using phacoemulsification with intraocular lens implant, left eye SURGEON: Kartik Jacques ANESTHESIA TYPE: Local By Surgeon and MAC Refer to Anesthesia Record PATHOLOGY: none sent COMPLICATIONS: None Patient was transported to: same day Patient's condition: stable Implants: Anastacio Clareon [id number] Indications: Progressive decreased vision due to cataract, left eye Procedure Description: CATARACT SURGERY OPERATIVE REPORT PREOPERATIVE DIAGNOSIS: Nuclear cataract, left eye POSTOPERATIVE DIAGNOSIS: Same OPERATION: Cataract extraction using phacoemulsification with posterior chamber intraocular lens implant, left eye. IOL: IOL Conference Reservationist/Model: Anastacio Clareon [id number] IOL Power: + 24.5 diopters IOL Serial Number: [id number] Optic Diameter: 6.0mm Haptic/Overall Diameter: 13.0mm PHACO INFO: Anastacio Rewards[employer]urion Vision System with OZil and Active Fluidics Cumulative Dispersed Energy (CDE): 10.67 seconds SURGEON: Kartik Jacques MD, JOHNATHAN ANESTHESIA: Monitored Anesthesia Care (MAC), with local sub-tenon's anesthetic infiltration COMPLICATIONS: None SPECIMENS: None INDICATIONS FOR PROCEDURE: The patient is a 71-year-old lady with history of diminished visual acuity in her left eye secondary to the development of dense nuclear cataract. She is significantly symptomatic that she desires cataract surgery and attempt to improve and maximize her vision. The option of cataract surgery was offered to the patient and she wished to proceed. See office notes for detailed information. PROCEDURE: The correct surgical eye was identified and marked as the left eye and the pupil was dilated in the preoperative area using mydriatics and cycloplegics. The dilated pupil size was 7.0 mm. Oral sedation was administered in the form of an Imprimis MKO Melt (midazolam 3mg/ketamine 25mg/ondansetron 2mg). The patient was brought to the operating room where cardiopulmonary monitoring was instituted and surgical time-out was performed, confirming the correct operative eye and IOL power. Topical anesthesia was administered and ophthalmic povidone-iodine 5% was instilled into the conjunctival fornices. The dottie-ocular area was prepped with Betadine 10% solution and draped in the usual sterile fashion for intraocular surgery, including an aperture drape. A Tegaderm transparent film dressing was cut in half and used to cover the lashes and lid margins. Care was taken to sequester the lashes and lid margins under the Tegaderm dressing. A lid speculum was placed between the lids of the operative eye and the Anastacio LuxOR Revalia operating microscope was maneuvered into position. Tiago scissors were then used to make a conjunctival buttonhole approximately 6mm posterior to the limbus in the inferonasal quadrant. Blunt dissection was carried out to expose bare sclera, and a blunt-tipped sub-tenon?s anesthesia cannula was introduced and passed posteriorly along the globe where non- preserved plain lidocaine was injected into posterior sub-Tenon?s space. A sideport knife was used to make a paracentesis port. Intraocular phenylephrine/lidocaine was injected into the anterior chamber. The anterior chamber was then filled with viscoelastic. A keratome knife was used construct a two-plane clear corneal tunnel extending 2.0mm into clear cornea. A flap was raised on the anterior capsule and capsulorhexis forceps were used to complete a continuous curvilinear capsulorhexis of 5.0 mm. Balanced salt solution was then used to perform cortical cleaving hydrodissection and nuclear hydrodelineation until the lens could be freely rotated within the capsular bag. The lens nucleus was then disassembled and removed within the capsular bag and iris plane using phacoemulsification. Residual cortical material was removed using the irrigation/aspiration handpiece. The posterior capsule was carefully polished to remove as much residual lens epithelial cells as safely possible. The capsular bag was then inflated and the anterior chamber deepened with viscoelastic. The lens implant described above was inserted into the capsular bag using the Anastacio Autonome Injector. A Kuglen hook was used to dial the IOL into position. Residual viscoelastic was then removed first from posterior to the IOL, then from the anterior chamber using the I/A handpiece. The lens implant was noted to center nicely within the capsular bag. The incisions were stromally hydrated, and the anterior chamber was reformed using BSS. Then 0.5cc of moxifloxacin 1.0mg/ml were injected into the capsular bag and anterior chamber. The incisions were checked with a Weck spear and found to be secure. Several drops of ophthalmic povidone-iodine 5% were then applied to the eye followed by two drops of Imprimis combination prednisolone/moxifloxacin/nepafenac solution. The drapes were removed and a clear plastic protective eye shield was placed over the eye. The patient was then returned to Same Day Surgery in stable condition.
--- NOTE | 2022-08-24 10:46 | W.ANESPOSTOP ---
Postoperative Evaluation Date, Time and Location Date Performed: 08/24/22 Time Performed: 10:32 Patient Location: Day Surgery Unit Vital Signs Most Recent Imported Vital Signs: Most Recent Vital Signs Temp Pulse Resp BP Pulse Ox 36 C L 69 18 112/82 96 08/24/22 10:21 08/24/22 10:21 08/24/22 10:21 08/24/22 10:21 08/24/22 10:21 Pain Score Most Recent Pain Score: Most Recent Pain Score Pain Level 0 08/24/22 10:21 Assessment Mental Status: Awake (Alert & Oriented to Patient Baseline) Airway and Respiratory Function: Patent airway with normal (patient baseline) respiratory exam Cardiovascular Function: Hemodynamically Stable Hydration Status: Adequately Hydrated Nausea & Vomiting: No Nausea or Vomiting Pain: Pt. Denies Any Pain Peripheral Nerve Block: Patient did not receive a nerve block
== END 2022-08-24 10:39 | disposition home or self-care (01) ==
LOC: SUR 07:52
PROVIDERS: PCP Nurse Practitioner Adult Health; Visit Provider Ophthalmology
PROC: (CPT 66984; principal; 2022-08-24 09:45)
DX: H25.12 Age-related nuclear cataract, left eye (principal); I10 Essential (primary) hypertension; K21.9 Gastro-esophageal reflux disease without esophagitis
CPT/HCPCS: 66984; V2632

== ENCOUNTER 2022-09-07 06:41 | Day surgery (SDC) | payer OTHER, MEDICAID, SELFPAY ==
[2022-09-07 07:04] VITALS: BP 134/75; PULSE 72; RESP 16; TEMP 36.3; O2SAT 91
[2022-09-07] MEDS: Tropicam./Phenyleph. (1/2.5%) 5 ML BTL OD ×3 (07:09→07:20)
--- NOTE | 2022-09-07 07:30 | W.ANESPRE ---
General Info Date of Service Date Performed: 09/07/22 Height: 5 ft 3 in Weight: 65.7 kg Body Mass Index (BMI): 25.6 Surgical Procedure: Operation Date: 09/07/22 08:25 Proposed Procedure Side Surgeon p Cataract Extraction with IOL Implant Right Kartik Jacques MD Meds Allergies and Home Medications Allergies Allergy/AdvReac Type Severity Reaction Status Date / Time oxybutynin Allergy Unknown angioedema Verified 09/07/22 06:59 paroxetine AdvReac Severe Withdrawal Verified 09/07/22 06:59 off it (hallucinations, emotional lability) risedronate sodium AdvReac Severe painful Verified 09/07/22 06:59 legs unable to stand confidently Home Medication Medication Instructions Recorded loperamide 2 mg capsule 2 mg PO DAILY PRN 03/21/20 cholecalciferol (vitamin D3) 50 50 mcg PO DAILY #90 caps 08/10/20 mcg (2,000 unit) capsule acetaminophen 500 mg capsule 1,000 mg PO Q8H PRN PRN #90 caps 01/15/21 buspirone 30 mg tablet 30 mg PO BID #180 tabs 10/04/21 vit C,X-Hw-cxnvf-lutein-zeaxan 1 tab PO DAILY 10/04/21 [PreserVision AREDS-2] sertraline 50 mg tablet See Rx Instructions .Route 11/08/21 .COMPLEX #270 tabs atorvastatin 40 mg tablet (Lipitor) 40 mg PO DAILY #90 tabs 02/07/22 cholestyramine (with sugar) 4 gram 1 pwd PO DAILY diarrhea #378 grams 02/19/22 oral powder gabapentin 800 mg tablet 800 mg PO TID #270 tab-caps 02/28/22 albuterol sulfate 90 mcg/actuation See Rx Instructions inhalation Q4H 03/21/22 aerosol inhaler PRN Wheezing, cough, shortness of breath #8.5 grams amlodipine 2.5 mg tablet 2.5 mg PO DAILY #90 tabs 03/21/22 diclofenac sodium 1 % topical gel 2 g topical BID PRN hand arthritis 03/21/22 (Arthritis Pain (diclofenac)) #100 grams lisinopril 20 mg tablet 20 mg PO DAILY #90 tabs 03/21/22 mirabegron 50 mg tablet,extended 50 mg PO DAILY bladder spasms #90 02/08/23 release 24 hr (Myrbetriq) tabs omeprazole 20 mg capsule,delayed 20 mg PO DAILY #90 caps 03/21/22 release trazodone 50 mg tablet 150 mg PO HS #270 tabs 03/21/22 valacyclovir 1 gram tablet 1,000 mg PO Q8H #24 tabs 05/24/22 (Valtrex) Current Visit Medications: Current Medications Generic Name Dose Route Start Last Admin Trade Name Freq PRN Reason Stop Dose Admin Acetaminophen 1,000 mg 09/07/22 06:00 Acetaminophen 500 Mg Tab PO 10/07/22 05:59 Q4H PRN PRN Balanced Salt Solution 500 ml 09/07/22 06:00 Balanced Salt Soln.-Plus 500 Ml Bag OP 10/07/22 05:59 DIRECTED ALEKSEY Miscellaneous Medication 0 ml 09/07/22 06:00 Prednisolone 1%, Moxifloxacin 0.5%, Nepafenac 0.1% 5ml Btl OD 10/07/22 05:59 DIRECTED ALEKSEY Miscellaneous Medication 0 ml 09/07/22 06:00 09/07/22 07:20 Tropicam./Phenyleph. (1/2.5%) 5 Ml Btl OD 10/07/22 05:59 1 drp DIRECTED ALEKSEY Administration Tetracaine HCl 0 ml 09/07/22 06:00 Tetracaine 0.5% 4 Ml Btl OD 10/07/22 05:59 DIRECTED ALEKSEY PFSH Active Problems Active Problems: Problem Status Onset Code Nuclear age-related cataract, right eye H25.11 Nuclear age-related cataract, left eye H25.12 Otalgia of left ear H92.02 History of skin cancer of unknown type Z85.828 Tricuspid valve insufficiency I07.1 Mitral regurgitation I34.0 Primary osteoarthritis involving multiple joints M15.0 Cervical spondylosis without myelopathy M47.812 Hx of bladder cancer Z85.51 Iron deficiency E61.1 Fibromyalgia M79.7 Depression F32.9 Hypercholesterolemia E78.00 GERD (gastroesophageal reflux disease) K21.9 Hypertension I10 Macrocytosis without anemia D75.89 Mixed stress and urge urinary incontinence N39.46 Vitamin D deficiency E55.9 Cardiac murmur R01.1 Osteopenia determined by x-ray M85.80 Chronic shortness of breath R06.02 Anxiety F41.9 Family history of colon cancer Z80.0 Change in consistency of stool R19.5 Short of breath on exertion R06.02 Lumbar pain M54.50 Postmenopausal Bleeding N95.0 Medical History Medical History Arthritis of carpometacarpal (CMC) joint of left thumb s/p trapezial resection 11/30/2019 Arthritis of carpometacarpal (CMC) joint of right thumb Arthritis of left acromioclavicular joint Arthrosis of shoulder Bilateral dry eyes Closed fracture of right distal fibula (11/07/18) Elevated bilirubin Fracture of phalanx of right foot, closed (11/07/18) Fracture of rib Hip pain, right Hx of tuberculosis age 2 Incontinence of feces Pt. states this is no longer current Macular degeneration AREDS Osteoarthritis of left AC (acromioclavicular) joint Primary localized osteoarthritis of right hip Skin lesion of right ear Trochanteric bursitis Trochanteric bursitis, left hip Steroid injection: 11/18/2020; 08/19/2020 Trochanteric bursitis, right hip Depo-Medrol injection: 11/18/2020 Ulnar neuropathy at elbow Surgical History Surgical History Closed fracture of greater trochanter of right femur (06/07/20) s/p ORIF Greater Trochanter Periprosthetic Fracture (01/13/21) H/O arthroscopy of shoulder left shoulder one spurs removed. H/O esophagogastroduodenoscopy (~2018) History of carpal tunnel release History of colonoscopy History of elbow surgery History of Sarika fundoplication History of total bilateral knee replacement (TKR) History of total left hip arthroplasty (04/20/16) History of total right hip replacement (06/07/20) Hx of cholecystectomy Hx of cholecystectomy Status post total replacement of left hip (~04/11/21) Dr Mcdowell, [facility] Tobacco Smoking/Tobacco Use Status: Never Alcohol Alcohol Intake: current Alcohol intake frequency: a few times a week Alcohol type: beer Substance Use Substance use: Never Substance use type: does not use Vital Signs and Lab Results Vital Signs Most Recent Vital Signs in EMR: Most Recent Vital Signs Temp Pulse Resp BP Pulse Ox 36.3 C L 72 16 134/75 91 L 09/07/22 07:04 09/07/22 07:04 09/07/22 07:04 09/07/22 07:04 09/07/22 07:04 Lab Results Blood Type / Crossmatch: No Data to Display Complete Blood Count: No Data to Display Complete Metabolic Panel: No Data to Display Liver Function Panel: No Data to Display Coagulation Panel: No Data to Display Cardiac Panel: No Data to Display Arterial Blood Gas: No Data to Display Venous Blood Gas: No Data to Display Pancreas Panel: No Data to Display Thyroid Panel: No Data to Display Infectious Disease: No Data to Display Blood Cultures: No Data to Display Toxicology Panel: No Data to Display Imaging and Studies Imaging and Studies Study information below may be from another EMR and interpreted by another provider. Please see original notes in EMR for more complete details. Stress Test Summary: 11/14/21:Stress ECG Conclusion 1. Resting electrocardiogram was within normal limits 2. Patient exercised on the Buck protocol and completed a workload of 7 METS, stopping due to fatigue 3. Normal heart rate and blood pressure response to exercise. Patient achieved 91% of predicted heart rate for age 4. There was no electrocardiographic evidence of myocardial ischemia 5. There were no significant dysrhythmias Espinosa Treadmill Score is 5.7 which is Low risk. Echocardiogram Summary: 10/10/2012: LVEF 65%, mild MR/TR. Pulmonary Function Summary: 2020: No evidence of obstructive airways dz. Significant bronchodilator response. Restrictive pattern. Anesthesia Assessment and Plan Anesthesia History Personal History: No History of Anesthesia Complications Family History: No Family History of Anesthesia Complications Exercise Tolerance Exercise Tolerance: Metabolic Equivalents<4 Pertinent Negatives Pertinent Negatives: No Major Cardiovascular Symptoms or Complaints and Other ((CAIN, TB as a child)) Cardiac & Pulmonary Exam Cardiac Exam: Normal S1/S2 Heart Sounds Pulmonary Exam: Clear Bilateral Breath Sounds Implantable Cardiac Device Does patient have a Pacemaker or an ICD?: No Airway Exam Known Difficult Airway: No Mallampati Class: 3 Mouth Opening: Narrow (< 3cm) Thyromental Distance: Less than 3 cm Neck Range of Motion: Limited ROM Neck Circumference: Normal Teeth Condition: Removable Dentures/Plates Upper, Removable Dentures/Plates Lower and Edentulous ASA Classification ASA Score: ASA 3 Emergency Case?: No NPO Status NPO Status: NPO Clears >2 hours, Solids >8 hours Anesthesia Plan Resuscitation Status: Full Code Anesthesia Technique: MAC Anesthesia Airway Planned: Natural Airway Monitors Used: Standard Monitors
[2022-09-07] MEDS: Tetracaine 0.5% 4 ML BTL OD (08:20)
[2022-09-07] MEDS: Povidone-Iodine Ophth 30 ML BTL (08:20)
[2022-09-07 08:24] VITALS: BMI 25.6
[2022-09-07] MEDS: Balanced Salt Soln.-PLUS 500 ML BAG OP (08:25)
[2022-09-07] MEDS: Duovisc Viscoelastic System EACH 1 EACH (08:25)
[2022-09-07] MEDS: Lidocaine 1% Pres-Free 5 ML VIAL (08:26)
[2022-09-07] MEDS: Phenylephrine/Lidocaine (15/10) MG/ML 1 ML VIAL (08:27)
[2022-09-07 08:45] VITALS: BP 136/89; PULSE 67; RESP 18; TEMP 36.5; O2SAT 95
--- NOTE | 2022-09-07 08:45 | W.PM.DSUDISC ---
Date of service: 09/07/22 Time of Service: 08:45 Discharge Plan Disposition Patient Disposition: Home Discharge Details Attending Provider: Kartik Jacques Primary Care Provider: Laura Jenkins Home Meds and New Rx's Prescriptions: No Action vit C,U-Ir-zabak-lutein-zeaxan [PreserVision AREDS-2] 1 tab PO DAILY Rx Instructions: 1 daily buspirone 30 mg tablet 30 mg PO BID Qty: 180 3RF amlodipine 2.5 mg tablet 2.5 mg PO DAILY Qty: 90 3RF Rx Instructions: Blood pressure diclofenac sodium [Arthritis Pain (diclofenac)] 1 % gel 2 g topical BID PRN (Reason: hand arthritis) Qty: 100 3RF Rx Instructions: Hand arthritis; max 32G/24 hrs on all joints lisinopril 20 mg tablet 20 mg PO DAILY Qty: 90 3RF Rx Instructions: Blood pressure Myrbetriq 50 mg tablet extended release 24 hr 50 mg PO DAILY Qty: 90 3RF omeprazole 20 mg capsule,delayed release(DR/EC) 20 mg PO DAILY Qty: 90 3RF trazodone 50 mg tablet 150 mg PO HS Qty: 270 3RF albuterol sulfate 90 mcg/actuation HFA aerosol inhaler See Rx Instructions IH Q4H PRN (Reason: Wheezing, cough, shortness of breath) Qty: 8.5 2RF Rx Instructions: Use with spacer cholestyramine (with sugar) 4 gram powder 1 pwd PO DAILY Qty: 378 0RF Rx Instructions: administer w/meal; avoid other meds within 1hr before or 4-6hr after dose valacyclovir [Valtrex] 1 gram tablet 1,000 mg PO Q8H Qty: 24 0RF cholecalciferol (vitamin D3) 50 mcg (2,000 unit) capsule 50 mcg PO DAILY Qty: 90 3RF Rx Instructions: Osteopenia loperamide 2 mg capsule 2 mg PO DAILY PRN Rx Instructions: Diarrhea (OTC) sertraline 50 mg tablet See Rx Instructions .ROUTE .COMPLEX Qty: 270 3RF Dose Instruction: TAKE 3 TABLETS DAILY; MAXIMUM DAILY DOSE 150 MG. (DISCONTINUE PAXIL) Rx Instructions: TAKE 3 TABLETS DAILY; MAXIMUM DAILY DOSE 150 MG. (DISCONTINUE PAXIL) atorvastatin [Lipitor] 40 mg tablet 40 mg PO DAILY Qty: 90 3RF gabapentin 800 mg tablet 800 mg PO TID Qty: 270 3RF Rx Instructions: Fibromyalgia acetaminophen 500 mg capsule 1,000 mg PO Q8H PRN PRNQty: 90 0RF Discharge Instructions Stand Alone Forms: Post-op Topical Cataract, Arianna Hood (DSU) Discharge Orders Discharge Orders: Discharge Order (Routine); Ordered 09/07/22 Ordered By: Kartik Jacques DS: Diagnosis Discharge Diagnosis (1) Nuclear age-related cataract, right eye: Status: Resolved
--- NOTE | 2022-09-07 08:46 | ROE_ITS ---
Date of service: 09/07/22 Time of Service: 08:46 Operative Note Operative Note DATE OF PROCEDURE: 09/07/22 PRE-OP DIAGNOSIS: Nuclear cataract, right eye POST-OP DIAGNOSIS: same PROCEDURE: Cataract extraction using phacoemulsification with intraocular lens implant, right eye SURGEON: Kartik Jacques ANESTHESIA TYPE: Local By Surgeon and MAC Refer to Anesthesia Record ESTIMATED BLOOD LOSS: 0 PATHOLOGY: none sent COMPLICATIONS: None Patient was transported to: same day Patient's condition: stable Implants: Anastacio Clareon [id number] Indications: Progressive decreased vision due to cataract, right eye Procedure Description: CATARACT SURGERY OPERATIVE REPORT PREOPERATIVE DIAGNOSIS: Nuclear cataract, right eye POSTOPERATIVE DIAGNOSIS: Same OPERATION: Cataract extraction using phacoemulsification with posterior chamber intraocular lens implant, right eye. IOL: IOL Creative/Art Director/Model: Anastacio Clareon [id number] IOL Power: + 24.0 diopters IOL Serial Number: [id number] Optic Diameter: 6.0mm Haptic/Overall Diameter: 13.0mm PHACO INFO: Anastacio Popular Paysurion Vision System with OZil and Active Fluidics Cumulative Dispersed Energy (CDE): 8.80 seconds SURGEON: Kartik Jacques MD, JOHNATHAN ANESTHESIA: Monitored Anesthesia Care (MAC), with local sub-tenon's anesthetic infiltration COMPLICATIONS: None SPECIMENS: None INDICATIONS FOR PROCEDURE: The patient is a 71-year-old lady with history of diminished visual acuity in both eyes secondary to the development of bilateral nuclear cataract. She has already undergone cataract surgery in the right eye and is doing well postoperatively. She now presents for cataract surgery in the left eye. See office notes for detailed information. PROCEDURE: The correct surgical eye was identified and marked as the right eye and the pupil was dilated in the preoperative area using mydriatics and cycloplegics. The dilated pupil size was 7.0 mm. The patient elected to proceed without oral sedation. The patient was brought to the operating room where cardiopulmonary monitoring was instituted and surgical time-out was performed, confirming the correct operative eye and IOL power. Topical anesthesia was administered and ophthalmic povidone-iodine 5% was insti lled into the conjunctival fornices. The dottie-ocular area was prepped with Betadine 10% solution and draped in the usual sterile fashion for intraocular surgery, including an aperture drape. A Tegaderm transparent film dressing was cut in half and used to cover the lashes and lid margins. Care was taken to sequester the lashes and lid margins under the Tegaderm dressing. A lid speculum was placed between the lids of the operative eye and the Agma-Juli operating microscope was maneuvered into position. Tiago scissors were then used to make a conjunctival buttonhole approximately 6mm posterior to the limbus in the inferonasal quadrant. Blunt dissection was carried out to expose bare sclera, and a blunt-tipped sub-tenon?s anesthesia cannula was introduced and passed posteriorly along the globe where non- preserved plain lidocaine was injected into posterior sub-Tenon?s space. A sideport knife was used to make a paracentesis port. Intraocular phenylephrine/lidocaine was injected into the anterior chamber. The anterior chamber was then filled with viscoelastic. A keratome knife was used to construct a two--plane clear corneal tunnel extending 2.0mm into clear cornea. A flap was raised on the anterior capsule and capsulorhexis forceps were used to complete a continuous curvilinear capsulorhexis of 5.5 mm. Balanced salt solution was then used to perform cortical cleaving hydrodissection and nuclear hydrodelineation until the lens could be freely rotated within the capsular bag. The lens nucleus was then disassembled and removed within the capsular bag and iris plane using phacoemulsification. Residual cortical material was removed using the I/A handpiece. The posterior capsule was carefully polished to remove as much residual lens epithelial cells as safely possible. The capsular bag was then inflated and the anterior chamber deepened with cohesive viscoelastic. The lens implant described above was inserted into the capsular bag using the Anastacio Autonome Injector. A Kuglen hook was used to dial the IOL into position. Residual viscoelastic was then removed first from posterior to the IOL, then from the anterior chamber using the I/A handpiece. The lens implant was noted to center nicely within the capsular bag. The incisions were stromally hydrated, and the anterior chamber was reformed using BSS. Then 0.5cc of moxifloxacin 1.0mg/ml were injected into the capsular bag and anterior chamber. The incisions were checked with a Weck spear and found to be secure. Several drops of ophthalmic povidone-iodine 5% were then applied to the eye followed by two drops of Imprimis combination prednisolone/moxifloxacin/nepafenac solution. The drapes were removed and a clear plastic protective eye shield was placed over the eye. The patient was then returned to Same Day Surgery in stable condition.
--- NOTE | 2022-09-07 08:58 | W.ANESPOSTOP ---
Postoperative Evaluation Date, Time and Location Date Performed: 09/07/22 Time Performed: 08:52 Patient Location: Day Surgery Unit Vital Signs Most Recent Imported Vital Signs: Most Recent Vital Signs Temp Pulse Resp BP Pulse Ox 36.5 C 67 18 136/89 95 09/07/22 08:45 09/07/22 08:45 09/07/22 08:45 09/07/22 08:45 09/07/22 08:45 Pain Score Most Recent Pain Score: Most Recent Pain Score Pain Level 0 09/07/22 08:45 Assessment Mental Status: Awake (Alert & Oriented to Patient Baseline) Airway and Respiratory Function: Patent airway with normal (patient baseline) respiratory exam Cardiovascular Function: Hemodynamically Stable Hydration Status: Adequately Hydrated Nausea & Vomiting: No Nausea or Vomiting Pain: Pt. Denies Any Pain Peripheral Nerve Block: Patient did not receive a nerve block
== END 2022-09-07 09:04 | disposition home or self-care (01) ==
LOC: SUR 06:42
PROVIDERS: PCP Nurse Practitioner Adult Health; Visit Provider Ophthalmology
PROC: (CPT 66984; principal; 2022-09-07 08:15)
DX: H25.11 Age-related nuclear cataract, right eye (principal); K21.9 Gastro-esophageal reflux disease without esophagitis; I10 Essential (primary) hypertension; F41.9 Anxiety disorder, unspecified
CPT/HCPCS: 66984; V2632

== ENCOUNTER → 2022-11-01 02:58 | Outpatient (CLI) | payer OTHER, MEDICAID, SELFPAY ==
--- NOTE | 2022-11-01 07:44 | DI.MAMMO_ITS ---
Exam(s) MAMMO SCREENING EXAM: MAMMO SCREENING CLINICAL HISTORY: screening,Z12.39 TECHNIQUE: Bilateral full field digital CC and MLO mammographic images were obtained with 3D tomosyn thesis and utilizing computer aided detection (CAD). COMPARISON: Available for comparison. FINDINGS: Masses/Architectural Distortion: None seen. Microcalcifications: No suspicious pleomorphic-type are seen. Skin Thickening/Nipple Retraction: None. IMPRESSION: 1. No significant interval change with no specific features of malignancy noted. 2. Unless there is more urgent need, screening mammography is recommended, as per [place] [place] guidelines. BI-RADS Category 1 - Negative Breast Density - Category B - Scattered areas of fibroglandular density Breast density category C or D implies that the patient has dense breast tissue. Dense breast tissue is very common and is not abnormal but dense breast tissue can make it harder to find cancer on a ma mmogram. Also, dense breast tissue may increase their breast cancer risk. This information about the result of the mammogram report was provided to the patient to raise their awareness. Use this report when you speak with the patient about their risks for breast cancer, which includes their family hist ory. At that time, you may recommend for more screening tests (Ultrasound or MRI) as they might be us eful based on their risk. A negative radiographic report should not delay biopsy if a dominant or clinically suspicious mass is present. Up to ten percent of cancers are not identified on mammography. A negative report may reinforce clinical impression. Adenosis and dense breasts may obscure an underlying neoplasm. False positive reports average 6 to 10%. Patient will receive a letter notifying them of these results.
== END ==
PROVIDERS: PCP Nurse Practitioner Adult Health; Visit Provider Nurse Practitioner Adult Health
DX: Z12.31 Encounter for screening mammogram for malignant neoplasm of breast (principal)
CPT/HCPCS: 77063; 77067

== ENCOUNTER → 2023-02-07 10:52 | Outpatient (CLI) | payer OTHER, MEDICAID, SELFPAY ==
--- NOTE | 2023-02-07 10:29 | DI.RAD_ITS ---
Exam(s) XR FACIAL BONES LIMITED EXAM: XR FACIAL BONES LIMITED CLINICAL HISTORY: HEADACHES R51.9. TECHNIQUE: 2D digital imaging was performed. COMPARISON: No exams were available for comparison FINDINGS: BONES: No evidence of fracture. No lytic or blastic lesion. Edentulous. SOFT TISSUES: Unremarkable. Sinuses appear clear as visualized. IMPRESSION: Unremarkable radiographs of the facial bones. DATA REPOSITORY: RADIATION DOSE DELIVERED:
== END ==
PROVIDERS: PCP Nurse Practitioner Adult Health; Visit Provider Nurse Practitioner Family
DX: R51.9 Headache, unspecified (principal)
CPT/HCPCS: 70140

== ENCOUNTER 2023-02-25 10:20 | Outpatient (REF) | payer OTHER, MEDICAID, SELFPAY ==
[2023-02-25 15:49] LABS: Bilirubin Negative (Negative); Blood Trace-lysed (Negative); Clarity Clear (Clear); Glucose Negative (Negative); Ketones Negative (Negative); Leukocyte Esterase Negative (Negative); Nitrite Negative (Negative); Specific Gravity <= 1.005 (1.005-1.025); Urobilinogen 0.2 mg/dL (Up to 0.2); pH 5.5 (5-8)
[2023-02-25 16:00] LABS: Bacteria Negative HPF (Negative); C & S Indicated? No; Casts Negative LPF (Negative); Crystals Negative HPF (Negative); Epithelial Cells Rare HPF (Negative); Mucus Negative (Negative); RBC 0-2 HPF (0-2); WBC Negative HPF (0-5)
== END 2023-02-25 10:21 | disposition home or self-care (01) ==
LOC: LBN 10:20
PROVIDERS: PCP Nurse Practitioner Adult Health; Visit Provider Nurse Practitioner Adult Health
DX: R31.9 Hematuria, unspecified (principal); R41.3 Other amnesia
CPT/HCPCS: 81003; 81015

== ENCOUNTER → 2023-03-11 02:31 | Outpatient (CLI) | payer OTHER, MEDICAID, SELFPAY ==
--- NOTE | 2023-03-11 07:00 | DI.RAD_ITS ---
Exam(s) XR MANDIBLE COMPLETE XR TMJ BL EXAM: XR MANDIBLE COMPLETE and XR TMJ bilateral CLINICAL HISTORY: L>R; pain with chewing (new); ?osteoporosis; ?AVN,jaw pain,r64.84,m26.629. TECHNIQUE: 2D digital imaging was performed. Twelve images were obtained. COMPARISON: CR XR FACIAL BONES LIMITED from 02/07/2023 FINDINGS: BONES: No evidence of fracture. The patient is edentulous. Mild erosive changes are seen in the ant erior aspect of the alveolar process of the maxilla. No other erosive changes are seen. No suspicio us lytic or sclerotic lesions are seen. There is a bone island again seen in the left mandible. The bones are normally mineralized. JOINTS: No evidence of temporomandibular joint dislocation or subluxation. The heads of the mandible are unremarkable. No destructive changes or degenerative changes are seen. SOFT TISSUES: Unremarkable. IMPRESSION: 1. Question of erosive changes involving the anterior aspect of the alveolar process of the maxilla. Further evaluation with CT and/or MRI is recommended. This may be infectious or inflammatory in fabián ology. 2. No evidence of degenerative changes or destructive changes at the temporomandibular joints. 3. The patient is edentulous. DATA REPOSITORY: RADIATION DOSE DELIVERED:
== END ==
PROVIDERS: PCP Nurse Practitioner Adult Health; Visit Provider Nurse Practitioner Adult Health
DX: M26.623 Arthralgia of bilateral temporomandibular joint (principal)
CPT/HCPCS: 70110; 70330

== ENCOUNTER 2023-03-11 04:00 | Outpatient (CLI) | payer OTHER, MEDICAID, SELFPAY ==
[2023-03-11 07:55] LABS: Abs Immature Grans 0.01 10^3/uL (0.0-0.06); Absolute Basophil Count 0.03 10^3/uL (0.0-0.2); Absolute Eosinophil Count 0.07 10^3/uL (0.0-0.7); Absolute Lymphocyte Count 1.07 10^3/uL (1.2-3.4); Absolute Monocyte Count 0.29 10^3/uL (0.1-0.8); Basophils % 0.8; Eosinophils % 1.8; HCT 43.9 % (36.0-46.0); HGB 15.1 g/dL (11.2-15.7); Immature Grans % 0.3; MCHC 34.4 % (32.0-36.0); MCV 102 fL (80-95); MPV 9.5 fL (8.0-11.0); Monocytes % 7.3; Neutrophils % 62.8; Platelet Count 158 10^3/uL (130-400); RBC 4.31 10^6/uL (3.93-5.22); RDW 13.1 % (11.7-14.6); RDW-SD 50.3 fL; WBC 3.97 10^3/uL (4.4-10.8)
[2023-03-11 07:57] LABS: Absolute Neutrophil Count 2.49 10^3/uL (1.2-6.7)
[2023-03-11 08:30] LABS: ALT 39 U/L (14-59); AST 38 U/L (15-37); Albumin 4.2 g/dL (3.4-5.0); Alkaline Phosphatase 70 U/L (46-116); Anion Gap 9.1 mmol/L (3-11); BUN 9 mg/dL (7-18); Bilirubin, Total 1.2 mg/dL (0.2-1.0); CO2 27.9 mmol/L (21.0-32.0); CREATININE 0.9 mg/dL (0.55-1.02); Calcium 9.4 mg/dL (8.5-10.1); Chloride 102 mmol/L (98-107); Folate > 20.0 ng/mL (8.6-20.0); Glucose 107 mg/dL (74-106); Sodium 139 mmol/L (136-145); TSH (W/Ref FT4) 1.11 uIU/mL (0.36-3.74); Total Protein 7.8 g/dL (6.4-8.2); Vitamin B12 405 pg/mL (193-986)
[2023-03-11 19:11] LABS: HIV-1/2 Ag & Ab Screen Negative (Negative)
[2023-03-11 19:13] LABS: Hepatitis A Antibody IgM Negative (Negative); Hepatitis B Core Antibody Negative (Negative); Hepatitis B surface Ag Negative (Negative); Hepatitis C Ab w Rflx HCV PCR Negative (Negative)
[2023-03-12 10:52] LABS: Syphilis Serology (RPR) Negative (Negative)
== END 2023-03-11 04:01 | disposition home or self-care (01) ==
LOC: LBO 04:01
PROVIDERS: Absent Provider Nurse Practitioner Adult Health; PCP Nurse Practitioner Adult Health; Referring Provider Nurse Practitioner Adult Health; Visit Provider Nurse Practitioner Adult Health
DX: R41.3 Other amnesia (principal); E61.1 Iron deficiency; I10 Essential (primary) hypertension; M79.7 Fibromyalgia; Z11.59 Encounter for screening for other viral diseases; Z11.4 Encounter for screening for human immunodeficiency virus [HIV]; Z11.3 Encounter for screening for infections with a predominantly sexual mode of transmission; Z01.84 Encounter for antibody response examination
CPT/HCPCS: 36415; 80053; 86704; 86709; 86803; 87340; 87389; 82607; 82746; 84443; 85025; 86592

== ENCOUNTER 2023-03-20 02:57 | Outpatient (CLI) | payer OTHER, MEDICAID, SELFPAY ==
[2023-03-20 13:28] LABS: ESR 2 mm/hr (0-30)
[2023-03-20 13:53] LABS: C-Reactive Protein < 0.50 mg/dL (<or=0.5)
== END 2023-03-20 02:58 | disposition home or self-care (01) ==
LOC: LBO 02:57
PROVIDERS: Absent Provider Nurse Practitioner Adult Health; PCP Nurse Practitioner Adult Health; Referring Provider Nurse Practitioner Adult Health; Visit Provider Nurse Practitioner Adult Health
DX: M79.2 Neuralgia and neuritis, unspecified; R63.4 Abnormal weight loss; R68.84 Jaw pain
CPT/HCPCS: 36415; 85652; 86140

== ENCOUNTER → 2023-04-04 00:24 | Outpatient (CLI) | payer OTHER, MEDICAID, SELFPAY ==
--- NOTE | 2023-04-04 07:00 | DI.MRI_ITS ---
Exam(s) MR ORBIT FACIAL NECK WO/W EXAM: MR ORBIT FACIAL NECK WO/W CLINICAL HISTORY: abnl xr maxilla,jaw pain L>R,?erosive changes,? infectious or inflamm TECHNIQUE: Multiplanar multisequence MRI was performed. CONTRAST MATERIAL: IV Contrast: mL of Magnevist contrast administered. COMPARISON: No exams were available for comparison FINDINGS: There is normal marrow signal. Following contrast administration no abnormal enhancement is seen to suggest osteomyelitis. The visualized paranasal sinuses are clear. The visualized orbits and retro-orbital soft tissues are unremarkable. There does appear to be a partially empty sella. The visualized infundibulum and optic chiasm are un remarkable. The soft tissues are unremarkable. IMPRESSION: No evidence to suggest osteomyelitis. DATA REPOSITORY:
[2023-04-04] MEDS: Normal Saline Flush 10 ML SYR IVP (10:14)
[2023-04-04] MEDS: Gadoterate meglumine 20 ML SYRINGE 12 ML IVP (10:15)
== END ==
PROVIDERS: PCP Nurse Practitioner Adult Health; Visit Provider Nurse Practitioner Adult Health
DX: R68.84 Jaw pain; R93.89 Abnormal findings on diagnostic imaging of other specified body structures
CPT/HCPCS: 70543

== ENCOUNTER → 2023-04-17 03:10 | Outpatient (CLI) | payer OTHER, MEDICAID, SELFPAY ==
--- NOTE | 2023-04-17 10:46 | DI.RAD_ITS ---
Exam(s) XR CHEST 2V PA LATERAL EXAM: XR CHEST 2V PA LATERAL CLINICAL HISTORY: sob,wt loss,h/o tb,r06.02 TECHNIQUE: 2D digital imaging was performed. Two views. COMPARISON: CR,XR XR PORTABLE CHEST AP from 02/18/2022 FINDINGS: HEART: Normal size. Aorta: Not dilated. PULMONARY VASCULATURE: Normal. LUNGS: Clear. PLEURAL SPACE: No pleural effusion or pneumothorax. BONE:Unremarkable for age. Soft tissues: Unremarkable. IMPRESSION: No acute abnormality. DATA REPOSITORY: RADIATION DOSE DELIVERED:
== END ==
PROVIDERS: PCP Nurse Practitioner Adult Health; Visit Provider Emergency Medicine
DX: R06.02 Shortness of breath (principal)
CPT/HCPCS: 71046

== ENCOUNTER 2023-06-06 05:45 | Outpatient (CLI) | payer OTHER, SELFPAY ==
[2023-06-06 10:07] LABS: ALT 25 U/L (14-59); AST 22 U/L (15-37); Albumin 3.9 g/dL (3.4-5.0); Alkaline Phosphatase 87 U/L (46-116); Anion Gap 8.9 mmol/L (3-11); BUN 10 mg/dL (7-18); Bilirubin, Total 0.6 mg/dL (0.2-1.0); C-Reactive Protein < 0.50 mg/dL (<or=0.5); CO2 29.1 mmol/L (21.0-32.0); CREATININE 0.8 mg/dL (0.55-1.02); Calcium 8.6 mg/dL (8.5-10.1); Chloride 108 mmol/L (98-107); Estimated GFR 77.75 (mL/min/1.73m2); Glucose 90 mg/dL (74-106); Potassium 3.8 mmol/L (3.5-5.1); Sodium 146 mmol/L (136-145); Total Protein 7.3 g/dL (6.4-8.2)
[2023-06-06 20:03] LABS: Calculated LDL 89 mg/dL (<100); Cholesterol 173 mg/dL (<200); HDL Cholesterol 70 mg/dL (40-60); Triglyceride 72 mg/dL (<150)
[2023-06-07 09:45] LABS: Prealbumin 23 mg/dL (20-40)
== END 2023-06-06 05:46 | disposition home or self-care (01) ==
LOC: LBO 05:45
PROVIDERS: PCP Nurse Practitioner Adult Health; Referring Provider Nurse Practitioner Adult Health; Visit Provider Nurse Practitioner Adult Health
DX: E78.00 Pure hypercholesterolemia, unspecified (principal); M79.7 Fibromyalgia; R79.89 Other specified abnormal findings of blood chemistry; R63.4 Abnormal weight loss
CPT/HCPCS: 36415; 80053; 80061; 84134; 86140

== ENCOUNTER 2023-06-30 08:49 | Emergency (ER) | payer OTHER, SELFPAY ==
[2023-06-30] VITALS (23 sets, daily range): BP systolic 113–140; BP diastolic 54–85; PULSE 81–95; RESP 14–29; TEMP 37.4; O2SAT 97
--- NOTE | 2023-06-30 09:00 | DI.CT_ITS ---
Exam(s) CT ABDOMEN PELVIS W EXAM: CT ABDOMEN PELVIS W CLINICAL HISTORY: diarrhea, lower abdomen pain. TECHNIQUE: Imaging Protocol: Axial computed tomography images with coronal and sagittal reformatted images were created and reviewed CONTRAST MATERIAL: Intravenous: Omnipaque-350 100cc Oral: None COMPARISON: No exams were available for comparison FINDINGS: VISUALIZED LUNG BASES: There is a 3 millimeter nodule in the posterior basal segment of the left lowe r lobe. No other focal findings in the visualized lung bases. No pleural effusions. ABDOMEN: There is no ascites. There is an anterior abdominal wall mesh hernia repair on the right side. No a bnormal fluid collection. LIVER: There are no focal hepatic lesions evident. No dilated intrahepatic ducts. GALLBLADDER/BILIARY: The gallbladder surgically absent. CBD is not dilated. PANCREAS: The pancreas is relatively atrophic. There is no mass nor duct dilatation the pancreas. SPLEEN: Spleen is mildly enlarged. Cephalocaudal length is 13 cm. There are no intrasplenic lesions . Splenic and portal veins are patent. ADRENALS: There are no significant adrenal masses. KIDNEYS:No cysts evident. No solid renal masses. No calculi nor hydronephrosis.. ABDOMINAL AORTA: Calcified but not enlarged. Iliac arteries not enlarged. LYMPH NODES:There is no retroperitoneal nor paraaortic adenopathy. ABDOMINAL WALL: Right sided mesh repair GI: There is no evidence of bowel obstruction, free air, nor abscess. PELVIS: GI: No evidence of appendicitis.There is diverticulosis of the sigmoid. No obvious acute diverticuli tis, realizing that some the sigmoid is obscured by beam hardening artifact from bilateral hip prosth eses.Rectosigmoid is also fluid-filled and there is a subtle mild colitis pattern more distally. LYMPH NODES: There is no intrapelvic nor inguinal adenopathy. REPRODUCTIVE: Age-appropriate URINARY BLADDER: Thickened urinary bladder wall either related to cystitis or under distension. Ther e appear to be multiple calculi in the urinary bladder lumen but this is somewhat difficult to assess kidney given the beam hardening artifact from the bilateral hip prostheses. OSSEOUS: No fractures nor osseous lesions. 1 cm anterolisthesis L5 upon S1 due to bilateral pars def ects at L5. Also disc space narrowing at L5-S1 level noted IMPRESSION: 1. Interpretation the pelvis is somewhat limited by beam hardening artifact from bilateral hip prosth eses. 2. There is extensive diverticulosis of the colon. Can be possible to miss a subtle case of acute di verticulitis given the amount of artifact here. 3. Lower sigmoid is fluid-filled and exhibits mild colitis pattern. 4. Appendix unremarkable. There appear to be calculi in the urinary bladder somewhat difficult to assess because of beam harden ing artifact from the bilateral hip prostheses. RADIATION DOSE DELIVERED: 730.69mGy.cm Total DLP DATA REPOSITORY: All CT scans at this facility are submitted to the National Radiology Data Registry (NRDR) Dose Index Registry (DIR) with the [employer] (ACR). RADIATION OPTIMIZATION: All CT scans at this facility use at least one of these dose optimization te chniques: automated exposure control; mA and/or kV adjustment per patient size (includes targeted exa ms where dose is matched to clinical indication); or iterative reconstruction.
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
[2023-06-30] MEDS: Ondansetron 4 MG/2 ML VIAL IVP (09:25)
[2023-06-30] MEDS: Normal Saline 1,000 ML 1000 ML IV ×2 (09:25→11:00)
[2023-06-30 09:33] LABS: Abs Immature Grans 0.03 10^3/uL (0.0-0.06); Absolute Basophil Count 0.03 10^3/uL (0.0-0.2); Absolute Eosinophil Count 0.14 10^3/uL (0.0-0.7); Absolute Lymphocyte Count 0.46 10^3/uL (1.2-3.4); Absolute Monocyte Count 0.62 10^3/uL (0.1-0.8); Absolute Neutrophil Count 4.28 10^3/uL (1.2-6.7); Basophils % 0.5 %; Eosinophils % 2.5 %; HCT 40.6 % (36.0-46.0); HGB 13.7 g/dL (11.2-15.7); Immature Grans % 0.5 %; Lymphocytes % 8.3 %; MCH 33.8 pg (27.0-33.0); MCHC 33.7 % (32.0-36.0); MCV 100 fL (80-95); MPV 10.4 fL (8.0-11.0); Monocytes % 11.2 %; Platelet Count 142 10^3/uL (130-400); RBC 4.05 10^6/uL (3.93-5.22); RDW-SD 45.1 fL; WBC 5.56 10^3/uL (4.4-10.8)
[2023-06-30] MEDS: Omnipaque 350 MG/ML 100 ML BTL IJ (09:38)
[2023-06-30] MEDS: Normal Saline - Diluent 50 ML VIAL IJ (09:41)
[2023-06-30 09:52] LABS: INR 1.1 (0.9-1.1); PTT Activated 32.1 sec (23.6-32.8); Prothrombin Time 11.4 sec (9.1-11.1)
[2023-06-30 09:59] LABS: ALT 90 U/L (14-59); AST 54 U/L (15-37); Albumin 3.6 g/dL (3.4-5.0); Alkaline Phosphatase 186 U/L (46-116); Anion Gap 14.2 mmol/L (3-11); BUN 16 mg/dL (7-18); Bilirubin, Direct 0.5 mg/dL (0.0-0.2); Bilirubin, Total 1.3 mg/dL (0.2-1.0); CO2 24.8 mmol/L (21.0-32.0); CREATININE 0.9 mg/dL (0.55-1.02); Calcium 9.2 mg/dL (8.5-10.1); Chloride 98 mmol/L (98-107); Glucose 99 mg/dL (74-106); Lipase 11 U/L (16-77); Magnesium 2.1 mg/dL (1.8-2.4); Potassium 3.5 mmol/L (3.5-5.1); Sodium 137 mmol/L (136-145); TSH (W/Ref FT4) 0.97 uIU/mL (0.36-3.74)
[2023-06-30 10:05] LABS: Procalcitonin < 0.1 ng/mL
[2023-06-30 10:12] LABS: COVID-19 PCR Negative (Negative); Influenza A PCR Negative (Negative); Influenza B PCR Negative (Negative); RSV PCR Negative (Negative)
[2023-06-30 10:13] LABS: Source Nasopharynx
[2023-06-30 10:28] LABS: C Diff PCR Positive (Negative)
--- NOTE | 2023-06-30 10:41 | DI.VRAD_ITS ---
PROCEDURE INFORMATION: Exam: CT Abdomen And Pelvis With Contrast Exam date and time: 06/30/2023 9:52 AM Age: 72 years old Clinical indication: Other: Diarrhea, lower abdomen pain TECHNIQUE: Imaging protocol: Computed tomography of the abdomen and pelvis with contrast. Radiation optimization: All CT scans at this facility use at least one of these dose optimization techniques: automated exposure control; mA and/or kV adjustment per patient size (includes targeted exams where dose is matched to clinical indication); or iterative reconstruction. Contrast material: OMNI 350; Contrast volume: 80 ml; Contrast route: INTRAVENOUS (IV); COMPARISON: CR XR PELVIS AP 04/22/2020 16:43 FINDINGS: Lungs: Visualized lung bases are clear. Liver: Normal. No mass or intrahepatic biliary ductal dilatation. Gallbladder and bile ducts: Gallbladder has been removed. Pancreas: Normal. No mass or ductal dilation. Spleen: Spleen is mildly enlarged with a sagittal diameter of 13 cm. Adrenal glands: Normal. No mass. Kidneys and ureters: Normal. No hydronephrosis, calculus, cyst or mass. Stomach and bowel: Stomach and small bowel are normal. Proximal colon is normal but in the left lower quadrant there are numerous diverticula with mild associated inflammatory stranding. No abscess or perforation. Appendix: No evidence of appendicitis. Intraperitoneal space: Unremarkable. No free air. No significant fluid collection. Vasculature: Moderate aortic atherosclerosis. No aneurysm. Lymph nodes: No enlarged retroperitoneal or mesenteric lymph nodes. Urinary bladder: Multiple stones in the bladder. No wall thickening. Bladder evaluation limited by streak artifact from the hips. Reproductive: Unremarkable as visualized. Bones/joints: Bilateral hip prostheses. Soft tissues: Previous ventral hernia repair. IMPRESSION: Acute diverticulitis involving the descending colon in the left lower quadrant. Dictated and Authenticated by: Ulises Maradiaga MD. Ordering:LENCHO Cruz MD
[2023-06-30] MEDS: Fidaxomicin 200 MG TAB PO ×2 (11:00→11:21)
[2023-07-01 19:33] LABS: Hepatitis A Antibody IgM Negative (Negative); Hepatitis B Core Antibody Negative (Negative); Hepatitis B surface Ag Negative (Negative); Hepatitis C Ab w Rflx HCV PCR Negative (Negative)
[2023-07-01 20:16] LABS: Campylobacter PCR Negative (Negative); Salmonella PCR Negative (Negative); Shiga Toxin PCR Negative (Negative); Shigella/Enteroinvasive Ecoli Negative (Negative)
== END 2023-06-30 11:23 | disposition home or self-care (01) ==
PROVIDERS: Emergency Provider Emergency Medicine; PCP Nurse Practitioner Adult Health
DX: A04.72 Enterocolitis due to Clostridium difficile, not specified as recurrent (principal); I10 Essential (primary) hypertension; E78.00 Pure hypercholesterolemia, unspecified; Z90.49 Acquired absence of other specified parts of digestive tract; Z96.643 Presence of artificial hip joint, bilateral; Z96.653 Presence of artificial knee joint, bilateral
CPT/HCPCS: 36415; 80053; 83690; 84145; 86704; 86709; 86803; 87340; 87493; 87505; 87637; 96361; 96374; 99285; 74177; 82247; 82248; 83735; 84443; 85025; 85610; 85730; 99284; J2405; J3490

== ENCOUNTER 2023-11-15 03:05 | Outpatient (CLI) | payer OTHER, SELFPAY ==
[2023-11-15 08:55] LABS: Abs Immature Grans 0.01 10^3/uL (0.0-0.06); Absolute Basophil Count 0.03 10^3/uL (0.0-0.2); Absolute Eosinophil Count 0.12 10^3/uL (0.0-0.7); Absolute Monocyte Count 0.28 10^3/uL (0.1-0.8); Absolute Neutrophil Count 2.79 10^3/uL (1.2-6.7); Basophils % 0.7 %; HCT 39.5 % (36.0-46.0); HGB 13.5 g/dL (11.2-15.7); Immature Grans % 0.2 %; Lymphocytes % 19.9 %; MCH 35.2 pg (27.0-33.0); MCHC 34.2 % (32.0-36.0); MCV 103 fL (80-95); MPV 9.5 fL (8.0-11.0); Monocytes % 6.9 %; Neutrophils % 69.3 %; Platelet Count 128 10^3/uL (130-400); RBC 3.83 10^6/uL (3.93-5.22); RDW 12.2 % (11.7-14.6); RDW-SD 46.8 fL; WBC 4.03 10^3/uL (4.4-10.8)
[2023-11-15 09:18] LABS: Bilirubin Negative (Negative); Blood Negative (Negative); Clarity Clear (Clear); Glucose Negative (Negative); Ketones Negative (Negative); Leukocyte Esterase Negative (Negative); Nitrite Negative (Negative); Urobilinogen 0.2 mg/dL (Up to 0.2)
[2023-11-15 09:32] LABS: ALT 26 U/L (14-59); AST 30 U/L (15-37); Albumin 3.9 g/dL (3.4-5.0); Alkaline Phosphatase 83 U/L (46-116); Anion Gap 7.9 mmol/L (3-11); BUN 9 mg/dL (7-18); CO2 28.1 mmol/L (21.0-32.0); CREATININE 0.8 mg/dL (0.55-1.02); Chloride 103 mmol/L (98-107); Estimated GFR 77.27 (mL/min/1.73m2); Glucose 95 mg/dL (74-106); Potassium 4.1 mmol/L (3.5-5.1); Sodium 139 mmol/L (136-145); Total Protein 7.3 g/dL (6.4-8.2)
[2023-11-15 10:33] LABS: TROPONIN-I < 0.5 ug/mL (4.0-12.0)
[2023-11-15 10:53] LABS: C-Reactive Protein < 0.50 mg/dL (<or=0.5)
== END 2023-11-15 03:06 | disposition home or self-care (01) ==
LOC: LBO 03:05
PROVIDERS: Emergency Medicine; PCP Nurse Practitioner Adult Health; Referring Provider Nurse Practitioner Adult Health; Visit Provider Nurse Practitioner Adult Health
DX: A04.72 Enterocolitis due to Clostridium difficile, not specified as recurrent (principal); Z79.899 Other long term (current) drug therapy
CPT/HCPCS: 36415; 80053; 80156; 81003; 85025; 86140

== ENCOUNTER 2024-03-06 00:44 | Outpatient (CLI) | payer MEDICARE, MEDICAID, SELFPAY ==
--- NOTE | 2024-03-06 07:15 | DI.CT_ITS ---
Exam(s) CT HEAD CERVICAL SPINE WO EXAM: CT HEAD CERVICAL SPINE WO CLINICAL HISTORY: left arm weakness,R29.898. TECHNIQUE: Imaging Protocol: Axial computed tomography images with coronal and sagittal reformatted images were created and reviewed COMPARISON: No exams were available for comparison FINDINGS: Head CT Ventricles and Extra axial spaces: Normal in size and morphology for the patient's age. Hemorrhage: None. Cerebral parenchyma: No evidence of mass or acute infarct. Midline shift: None. Brainstem/Cerebellum: Normal. Calvarium: Normal. Visualized Paranasal sinuses/Mastoids: Clear. Soft tissues: Unremarkable. Cervical Spine CT BONES: Vertebral body heights are maintained. Alignment is normal. There is no evidence of acute frac ture. There is moderate narrowing of the C3-4 disc space and osteophytes projecting eccentrically toward th e left causing in severe left neural foraminal narrowing. There is mild neural foraminal narrowing o n. No central canal stenosis. At C5-6, there is moderate to severe narrowing of the disc but only minimal osteophytes. At C6-7, there is moderate loss of disc height. Minimal osteophytes no significant neural foraminal narrowing or central canal stenosis. SOFT TISSUES: No paraspinal hematoma. The airway appears intact. No pneumothorax is seen at the lung apices. IMPRESSION: Head CT: Within normal limits for age. C-spine CT: Degenerative changes, no acute abnormality. There is severe left neural foraminal narrowi ng at C3-4. RADIATION DOSE DELIVERED: Total DLP DATA REPOSITORY: All CT scans at this facility are submitted to the National Radiology Data Registry (NRDR) Dose Index Registry (DIR) with the [employer] (ACR). RADIATION OPTIMIZATION: All CT scans at this facility use at least one of these dose optimization te chniques: automated exposure control; mA and/or kV adjustment per patient size (includes targeted exa ms where dose is matched to clinical indication); or iterative reconstruction.
== END 2024-03-06 01:04 ==
PROVIDERS: PCP Nurse Practitioner Adult Health; Visit Provider Emergency Medicine
DX: M48.02 Spinal stenosis, cervical region (principal); M99.63 Osseous and subluxation stenosis of intervertebral foramina of lumbar region
CPT/HCPCS: 70450; 72125

== ENCOUNTER 2024-05-15 01:02 | Outpatient (CLI) | payer MEDICARE, MEDICAID, SELFPAY ==
[2024-05-15 08:04] LABS: Anion Gap 10.4 mmol/L (3-11); BUN 13 mg/dL (7-18); CO2 28.6 mmol/L (21.0-32.0); CREATININE 0.8 mg/dL (0.55-1.02); Calcium 9.4 mg/dL (8.5-10.1); Calculated LDL 49 mg/dL (<100); Chloride 107 mmol/L (98-107); Cholesterol 193 mg/dL (<200); Estimated GFR 77.27 (mL/min/1.73m2); Glucose 99 mg/dL (74-106); HDL Cholesterol 134 mg/dL (>or=50); Potassium 4.1 mmol/L (3.5-5.1); Sodium 146 mmol/L (136-145); TSH (W/Ref FT4) 1.87 uIU/mL (0.36-3.74); Triglyceride 52 mg/dL (<150)
== END 2024-05-15 01:03 | disposition home or self-care (01) ==
LOC: LBO 01:02
PROVIDERS: PCP Nurse Practitioner Adult Health; Referring Provider Nurse Practitioner Adult Health; Visit Provider Nurse Practitioner Adult Health
DX: E78.00 Pure hypercholesterolemia, unspecified (principal); F41.9 Anxiety disorder, unspecified; I10 Essential (primary) hypertension
CPT/HCPCS: 36415; 80048; 80061; 84443

== ENCOUNTER → 2024-09-22 14:32 | Outpatient (BNVA) | payer MEDICARE, MEDICAID, SELFPAY | PROVIDERS: PCP Nurse Practitioner Adult Health; Referring Provider Nurse Practitioner Adult Health; Visit Provider Nurse Practitioner Gerontology | DX: C67.9 Malignant neoplasm of bladder, unspecified (principal); N39.46 Mixed incontinence; N95.0 Postmenopausal bleeding; R39.9 Unspecified symptoms and signs involving the genitourinary system | CPT/HCPCS: 99214; 81002; 51798 ==

== ENCOUNTER 2024-09-22 17:02 | Outpatient (REF) | payer MEDICARE, MEDICAID, SELFPAY ==
--- NOTE | 2024-09-22 15:30 | PAPNONF_PTH ---
PATIENT: Wendy Salter LOC: [facility] U#:[id number] AGE/SX: 74/F ROOM: RE09/22/[address]: Nadya Bowers DNP : 1950 BED: DIS: 09/22/2024 SPEC #: [id number] RECD: 09/22/24 18:34 STATUS: ALEXANDRA REReji #: [id number] RD: 09/22/24 15:[address]: Nadya Bowers DEPT: [facility] Cytology RECD BY: Bridgette Hunter ENTERED: 09/22/24 18:34 SP TYPE: MONCHO STATON DR: Laura Jenkins APRN Tissues: 1 - BODY FLUID CYTO(SPUTUM/URINE)[facility] Procedures: BODY FLUID CYTO(URINE/SPUTUM) Comments: [id number] (TV = 40 ml, 30 ml CYTOLYT ADDED) (REFRIGERATED)
[2024-09-22 17:01] LABS: Glucose Negative (Negative)
== END 2024-09-22 17:03 | disposition home or self-care (01) ==
LOC: LBN 17:02
PROVIDERS: PCP Nurse Practitioner Adult Health; Visit Provider Nurse Practitioner Gerontology
DX: C67.9 Malignant neoplasm of bladder, unspecified (principal); Z85.51 Personal history of malignant neoplasm of bladder
CPT/HCPCS: 81003; 88104

== ENCOUNTER 2024-10-05 08:48 | Outpatient (CLI) | payer MEDICARE, MEDICAID, SELFPAY ==
--- NOTE | 2024-10-05 15:06 | DI.MAMMO_ITS ---
Exam(s) MAMMO SCREENING EXAM: MAMMO SCREENING CLINICAL HISTORY: screening Z12.39 TECHNIQUE: Bilateral full field digital CC and MLO mammographic images were obtained with 3D tomosynthesis and utilizing computer aided detection (CAD). COMPARISON: Comparison is made with prior examinations. FINDINGS: Masses/Architectural Distortion: No suspicious masses or areas of architectural distortion are present. Microcalcifications: No suspicious pleomorphic-type are seen. Skin Thickening/Nipple Retraction: None. IMPRESSION: 1. No significant interval change with no specific features of malignancy noted. 2. Unless there is more urgent need, screening mammography is recommended, as per [employer] guidelines. BI-RADS Category 1 - Negative Breast Density - Category B - There are scattered areas of fibroglandular density. Breast density Category C or D implies that the patient has dense breast tissue. Dense breast tissue can make it harder to find cancer on a mammogram. Dense breast tissue is also associated with an increased risk of breast cancer. This information about the result of the mammogram report was provided to the patient to raise their awareness. Use this report when you speak with the patient about their risks for breast cancer, which includes their family history. At that time, you may recommend additional screening tests (Ultrasound or MRI) as these tests may add significant information. A negative radiographic report should not delay biopsy if a dominant or clinically suspicious mass is present. Up to ten percent of cancers are not identified on mammography. A negative report may reinforce clinical impression. Adenosis and dense breasts may obscure an underlying neoplasm. False positive reports average 6 to 10%. Patient will receive a letter notifying them of these results.
== END 2024-10-05 09:08 ==
LOC: DI 08:49
PROVIDERS: PCP Nurse Practitioner Adult Health; Visit Provider Nurse Practitioner Adult Health
DX: Z12.31 Encounter for screening mammogram for malignant neoplasm of breast (principal); R92.323 Mammographic fibroglandular density, bilateral breasts
CPT/HCPCS: 77063; 77067

== ENCOUNTER → 2024-10-29 11:26 | Outpatient (BNVA) | payer MEDICARE, MEDICAID, SELFPAY | PROVIDERS: PCP Nurse Practitioner Adult Health; Referring Provider Nurse Practitioner Adult Health; Visit Provider Physical Therapy Assistant | DX: Z12.11 Encounter for screening for malignant neoplasm of colon (principal); I10 Essential (primary) hypertension; Z86.0101 Personal history of adenomatous and serrated colon polyps | CPT/HCPCS: S0285 ==

== ENCOUNTER 2024-12-25 02:39 | Outpatient (CLI) | payer MEDICARE, MEDICAID, SELFPAY ==
[2024-12-25 10:21] LABS: Abs Immature Grans 0.01 10^3/uL (0.0-0.06); HCT 42.4 % (36.0-46.0); HGB 14.3 g/dL (11.2-15.7); Immature Grans % 0.2 %; MCH 34.2 pg (27.0-33.0); MCHC 33.7 % (32.0-36.0); MCV 101 fL (80-95); MPV 9.3 fL (8.0-11.0); Platelet Count 122 10^3/uL (130-400); RBC 4.18 10^6/uL (3.93-5.22); RDW 12.1 % (11.7-14.6); RDW-SD 45.8 fL; WBC 4.59 10^3/uL (4.4-10.8)
[2024-12-25 10:34] LABS: Glucose Negative (Negative)
[2024-12-25 10:52] LABS: RBC 0-2 HPF (0-2)
[2024-12-25 10:53] LABS: C & S Indicated? No
[2024-12-25 13:50] LABS: TSH (W/Ref FT4) 0.80 uIU/mL (0.55-4.78)
[2024-12-25 13:57] LABS: ALT 73 U/L (10-49); AST 149 U/L (<34); Albumin 4.9 g/dL (3.4-5.0); Alkaline Phosphatase 82 U/L (46-116); Anion Gap 12 mmol/L (3-11); BUN 13 mg/dL (9-23); Bilirubin, Total 1.10 mg/dL (0.2-1.2); CO2 25.0 mmol/L (20.0-31.0); Calcium 9.1 mg/dL (8.3-10.6); Chloride 104 mmol/L (98-107); Glucose 91 mg/dL (74-106); Potassium 4.2 mmol/L (3.5-5.1); Sodium 141 mmol/L (136-145); Total Protein 8.0 g/dL (5.7-8.2)
[2024-12-25 14:29] LABS: Vitamin B12 289 pg/mL (211-911)
[2024-12-25 14:31] LABS: Folate > 24.0 ng/mL (>5.38)
[2024-12-25 18:42] LABS: HIV-1/2 Ag & Ab Screen Negative (Negative)
[2024-12-25 18:46] LABS: Hepatitis C Ab w Rflx HCV PCR Negative (Negative)
[2024-12-28 11:32] LABS: Syphilis Serology (RPR) Negative (Negative)
== END 2024-12-25 02:40 | disposition home or self-care (01) ==
LOC: LBO 02:39
PROVIDERS: PCP Nurse Practitioner Adult Health; Referring Provider Nurse Practitioner Adult Health; Visit Provider Nurse Practitioner Adult Health
DX: R41.3 Other amnesia (principal)
CPT/HCPCS: 36415; 80053; 86803; 87389; 81003; 81015; 82607; 82746; 84443; 85025; 86592

== ENCOUNTER → 2024-12-28 02:01 | Outpatient (CLI) | payer MEDICARE, MEDICAID, SELFPAY ==
--- NOTE | 2024-12-28 08:09 | DI.RAD_ITS ---
Exam(s) XR KNEE RT 3V AP,LAT,SHIELA EXAM: XR KNEE RT 3V AP,LAT,SHIELA CLINICAL HISTORY: s/p replacement; assess hardware; ?effusion,post rt knee pain,m25.561. TECHNIQUE: 2D digital imaging was performed. Three views. COMPARISON: No exams were available for comparison FINDINGS: BONES: No acute fracture is present. No bony destructive lesion is seen. JOINTS: The total knee prosthesis is normally aligned. No joint effusion is seen. SOFT TISSUE: Normal. IMPRESSION: No acute abnormality. DATA REPOSITORY: RADIATION DOSE DELIVERED:
== END ==
LOC: DI 02:01
PROVIDERS: PCP Nurse Practitioner Adult Health; Visit Provider Nurse Practitioner Adult Health
DX: M25.561 Pain in right knee (principal)
CPT/HCPCS: 73562

== ENCOUNTER 2025-01-06 11:12 | Day surgery (SDC) | payer MEDICARE, MEDICAID, SELFPAY ==
[2025-01-06 12:03] VITALS: BP 147/84; PULSE 90; RESP 18; TEMP 36.7; O2SAT 97
[2025-01-06] MEDS: Lactated Ringers 1,000 ML 80 ML IV (12:25)
--- NOTE | 2025-01-06 12:51 | W.ANESPRE ---
General Info Date of Service Date Performed: 01/06/25 Height: 5 ft 1 in Weight: 53.3 kg Body Mass Index (BMI): 22.1 Surgical Procedure: Operation Date: 01/06/25 13:20 Proposed Procedure Side Surgeon marie Oneil MD Meds Allergies and Home Medications Allergies Allergy/AdvReac Type Severity Reaction Status Date / Time oxybutynin Allergy Unknown angioedema Verified 01/06/25 11:54 paroxetine AdvReac Severe Withdrawal Verified 01/06/25 11:54 off it (hallucinations, emotional lability) risedronate sodium AdvReac Severe painful Verified 01/06/25 11:54 legs unable to stand confidently Home Medication ?Medication ?Instructions ?Recorded acetaminophen 500 mg capsule 1,000 mg (2 x 500 mg) PO Q8H PRN 01/15/21 PRN #90 caps Nebulizer and tubing #1 ea 11/22/22 loperamide 2 mg capsule 2 mg PO BID PRN loose stool #180 11/21/23 caps atorvastatin 40 mg tablet See Rx Instructions .Route 01/13/24 .COMPLEX #28 tabs diclofenac sodium 1 % topical gel 2 g topical BID PRN hand arthritis 02/25/24 (Arthritis Pain (diclofenac)) #100 grams triamcinolone acetonide 0.1 % 1 applic topical DAILY #80 grams 02/25/24 topical ointment amlodipine 2.5 mg tablet See Rx Instructions .Route 03/30/24 .COMPLEX #28 tabs mirabegron 50 mg tablet,extended See Rx Instructions .Route 03/30/24 release 24 hr (Myrbetriq) .COMPLEX #28 tabs omeprazole 20 mg capsule,delayed See Rx Instructions .Route 03/30/24 release .COMPLEX #28 caps buspirone 30 mg tablet 30 mg PO BID #180 tabs 05/21/24 cholecalciferol (vitamin D3) 50 50 mcg PO DAILY #90 caps 05/21/24 mcg (2,000 unit) capsule gabapentin 800 mg tablet 800 mg PO TID #270 tabs 05/21/24 lisinopril 10 mg tablet 10 mg PO DAILY #30 tabs 05/21/24 sertraline 50 mg tablet See Rx Instructions .Route 05/21/24 .COMPLEX #270 tabs trazodone 50 mg tablet 150 mg (3 x 50 mg) PO HS #270 tabs 05/21/24 bisacodyl 5 mg tablet,delayed 5 mg PO ONCE #4 tabs 10/29/24 release (Dulcolax (bisacodyl)) polyethylene glycol 3350 17 17 g PO ONCE #238 grams 10/29/24 gram/dose oral powder ipratropium bromide 21 mcg (0.03 2 spray intranasal BID-TID PRN 12/24/24 %) nasal spray allergy symptoms #30 mL Current Visit Medications: Current Medications Generic Name Dose Route Start Last Admin Trade Name Adam PRN Reason Stop Dose Admin Ringer's Solution 1,000 mls @ 80 mls/hr 01/06/25 06:00 01/06/25 12:25 IV 01/06/25 23:59 80 mls/hr INFUSION ALEKSEY Administration Sodium Chloride 0 ml 01/06/25 06:00 Normal Saline Flush 10 Ml Syr IV 01/06/25 23:59 PRN PRN Sodium Chloride 0 ml 01/06/25 06:00 Normal Saline 10 Ml Vial IJ 01/06/25 23:59 DIRECTED PRN Sterile Water 0 ml 01/06/25 06:00 Water,Injection,Sterile 10 Ml Vial IJ 01/06/25 23:59 DIRECTED PRN PFSH Active Problems Active Problems: Problem Status Onset Code Cervical spine arthritis Acute M47.812 Left arm weakness Acute R29.898 Weight loss Acute R63.4 Elevated liver function tests Acute R79.89 Memory changes Acute ~02/2023 R41.3 History of skin cancer of unknown type Acute Z85.828 Tricuspid valve insufficiency Acute I07.1 Mitral regurgitation Chronic I34.0 Primary osteoarthritis involving multiple joints Acute M15.0 Cervical spondylosis without myelopathy Acute M47.812 Hx of bladder cancer Chronic Z85.51 Iron deficiency Acute E61.1 Fibromyalgia Acute M79.7 Depression Chronic F32.9 Hypercholesterolemia Acute E78.00 GERD (gastroesophageal reflux disease) Chronic K21.9 Hypertension Chronic I10 Macrocytosis without anemia Acute D75.89 Mixed stress and urge urinary incontinence Acute N39.46 Vitamin D deficiency Chronic E55.9 Cardiac murmur Chronic R01.1 Osteopenia determined by x-ray Chronic M85.80 Chronic shortness of breath Chronic R06.02 Anxiety Chronic F41.9 Family history of colon cancer Chronic Z80.0 Medical History Medical History Trigeminal neuralgia of right side of face (~2023) On carbamazepine therapy TGN Chronic diarrhea Normal colo 11/2021 Cholestyramine helps Nuclear age-related cataract, right eye Nuclear age-related cataract, left eye Postmenopausal Bleeding Lumbar pain Short of breath on exertion NEG stress Change in consistency of stool Macular degeneration AREDS Fracture of rib Trochanteric bursitis, left hip Steroid injection: 11/18/2020; 08/19/2020 Hip pain, right Primary localized osteoarthritis of right hip Trochanteric bursitis, right hip Depo-Medrol injection: 11/18/2020 Arthritis of carpometacarpal (CMC) joint of left thumb s/p trapezial resection 11/30/2019 Arthritis of carpometacarpal (CMC) joint of right thumb Elevated bilirubin Arthrosis of shoulder Fracture of phalanx of right foot, closed (11/07/18) Closed fracture of right distal fibula (11/07/18) Osteoarthritis of left AC (acromioclavicular) joint Hx of tuberculosis age 2 Incontinence of feces Pt. states this is no longer current Bilateral dry eyes Trochanteric bursitis Ulnar neuropathy at elbow Arthritis of left acromioclavicular joint Surgical History Surgical History History of cataract surgery (~2022) B/L History of colonoscopy Hx of cholecystectomy Status post total replacement of left hip (~04/11/21) [place] Mcdowell, [facility] [place] H/O esophagogastroduodenoscopy (~2019) History of total right hip replacement (06/07/20) Closed fracture of greater trochanter of right femur (06/07/20) s/p ORIF Greater Trochanter Periprosthetic Fracture (01/13/21) H/O arthroscopy of shoulder left shoulder one spurs removed. History of elbow surgery History of carpal tunnel release Hx of cholecystectomy History of Sarika fundoplication History of total bilateral knee replacement (TKR) History of total left hip arthroplasty (04/20/16) Tobacco Smoking/Tobacco Use Status: Never Passive smoking exposure: Yes Alcohol Alcohol Intake: current Alcohol intake frequency: a few times a week Alcohol type: beer Substance Use Substance use: Never Substance use type: does not use Details: alcohol: t-2, one Vital Signs and Lab Results Vital Signs Most Recent Vital Signs in EMR: Most Recent Vital Signs Temp Pulse Resp BP Pulse Ox 36.7 C 90 18 147/84 H 97 01/06/25 12:03 01/06/25 12:03 01/06/25 12:03 01/06/25 12:03 01/06/25 12:03 Lab Results Complete Blood Count: WBC, (4.4-10.8) 4.59 10^3/uL 12/25/24, 10:15 RBC, (3.93-5.22) 4.18 10^6/uL 12/25/24, 10:15 Hgb, (11.2-15.7) 14.3 g/dL 12/25/24, 10:15 Hct, (36.0-46.0) 42.4 % 12/25/24, 10:15 Plt Count, (130-400) 122 10^3/uL L 12/25/24, 10:15 Complete Metabolic Panel: Sodium, (136-145) 141 mmol/L 12/25/24, 10:15 Potassium, (3.5-5.1) 4.2 mmol/L 12/25/24, 10:15 Chloride, (98-107) 104 mmol/L 12/25/24, 10:15 Carbon Dioxide, (20.0-31.0) 25.0 mmol/L 12/25/24, 10:15 BUN, (9-23) 13 mg/dL 12/25/24, 10:15 Creatinine, (0.55-1.02) 0.7 mg/dL 12/25/24, 10:15 Est GFR (CKD-EPI 2020), (mL/min/1.73m2) 76.45 12/25/24, 10:15 Calcium, (8.3-10.6) 9.1 mg/dL 12/25/24, 10:15 Albumin, (3.4-5.0) 4.9 g/dL 12/25/24, 10:15 Glucose, (74-106) 91 mg/dL 12/25/24, 10:15 Liver Function Panel: ALT, (10-49) 73 U/L H 12/25/24, 10:15 AST, (<34) 149 U/L H 12/25/24, 10:15 Thyroid Panel: TSH, (0.55-4.78) 0.80 uIU/mL 12/25/24, 10:15 Infectious Disease: HIV 1&2 Ag/Ab, 4th Gen, (Negative) Negative 12/25/24, 10:15 Hepatitis C Antibody, (Negative) Negative 12/25/24, 10:15 Syphilis Serology, (Negative) Negative 12/25/24, 10:15 Imaging and Studies Imaging and Studies Study information below may be from another EMR and interpreted by another provider. Please see original notes in EMR for more complete details. Stress Test Summary: 11/14/21:Stress ECG Conclusion 1. Resting electrocardiogram was within normal limits 2. Patient exercised on the Buck protocol and completed a workload of 7 METS, stopping due to fatigue 3. Normal heart rate and blood pressure response to exercise. Patient achieved 91% of predicted heart rate for age 4. There was no electrocardiographic evidence of myocardial ischemia 5. There were no significant dysrhythmias Espinosa Treadmill Score is 5.7 which is Low risk. Echocardiogram Summary: 12/2021:Conclusion Normal left ventricular wall thickness and chamber size. Estimated ejection fraction is 65%. Wall motion is normal Normal right ventricular size and systolic function The left atrium is mildly dilated. The right atrium is normal in size Aortic valve is sclerotic and trileaflet without stenosis or regurgitation Mild mitral annular calcification. Mild mitral regurgitation Normal tricuspid valve with moderate regurgitation. Estimated right ventricular systolic pressure is 39 mmHg 10/10/2012: LVEF 65%, mild MR/TR. Pulmonary Function Summary: 2020: No evidence of obstructive airways dz. Significant bronchodilator response. Restrictive pattern. Anesthesia Assessment and Plan Anesthesia History Personal History: No History of Anesthesia Complications Family History: No Family History of Anesthesia Complications Exercise Tolerance Exercise Tolerance: Metabolic Equivalents<4 Pertinent Negatives Pertinent Negatives: No Symptoms of GERD Cardiac & Pulmonary Exam Cardiac Exam: Normal S1/S2 Heart Sounds Pulmonary Exam: Clear Bilateral Breath Sounds Implantable Cardiac Device Does patient have a Pacemaker or an ICD?: No Airway Exam Known Difficult Airway: No Mallampati Class: 3 Mouth Opening: Narrow (< 3cm) Thyromental Distance: Less than 3 cm Neck Range of Motion: Limited ROM Neck Circumference: Normal Teeth Condition: Removable Dentures/Plates Upper, Removable Dentures/Plates Lower and Edentulous ASA Classification ASA Score: ASA 3 Emergency Case?: No NPO Status NPO Status: NPO Clears >2 hours, Solids >8 hours Anesthesia Plan Resuscitation Status: Full Code Anesthesia Technique: General Anesthesia Airway Planned: Natural Airway Monitors Used: Standard Monitors
[2025-01-06 13:00] VITALS: BMI 22.1
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
--- NOTE | 2025-01-06 14:00 | BOWEL_PTH ---
PATIENT: Wendy Salter LOC: [facility] U#:[id number] AGE/SX: 74/F ROOM: RE01/06/[address]: Chaparrita Oneil : 1950 BED: DIS: 01/06/2025 SPEC #: [id number] RECD: 01/06/25 18:31 STATUS: ALEXANDRA REReji #: [id number] RD: 01/06/25 14:[address]: Chaparrita Oneil DEPT: Surgical Specimen RECD BY: Bridgette Hunter ENTERED: 01/06/25 18:32 SP TYPE: Bowel OTHR DR: Laura Jenkins APRN Tissues: 1 - BIOPSY BOWEL 2 - BIOPSY BOWEL Procedures: GROSS AND MICRO LEVEL 4 Comments: [id number]
[2025-01-06 14:15] VITALS: BP 118/69; PULSE 78; RESP 18; TEMP 36.6; O2SAT 94
--- NOTE | 2025-01-06 14:16 | W.PM.DSUDISC ---
Date of service: 01/06/25 Discharge Plan Disposition Patient Disposition: Home Condition: Good Discharge Details Reason For Visit: Diarrhea, abdominal pain Attending Provider: Chaparrita Oneil Primary Care Provider: Laura Jenkins Recommendations for Follow Up Recommended tests to be ordered by follow up provider: Follow up pathology results Home Meds and New Rx's Prescriptions: Continued (DME) Nebulizer and tubing See Rx Instructions .Route .MEDSUPPLY Qty: 1 0RF Rx Instructions: As directed diclofenac sodium [Arthritis Pain (diclofenac)] 1 % gel 2 g topical BID PRN (Reason: hand arthritis) Qty: 100 3RF Rx Instructions: Jaw pain--apply to TM joint and arthritis; max 32G/24 hrs on all joints triamcinolone acetonide 0.1 % ointment 1 applic topical DAILY Qty: 80 0RF ipratropium bromide 21 mcg (0.03 %) spray,non-aerosol 2 spray intranasal BID-TID PRN (Reason: allergy symptoms) Qty: 30 0RF Rx Instructions: administer into each nostril loperamide 2 mg capsule 2 mg PO BID PRN (Reason: loose stool) Qty: 180 1RF Rx Instructions: Diarrhea cholecalciferol (vitamin D3) 50 mcg (2,000 unit) capsule 50 mcg PO DAILY Qty: 90 3RF Rx Instructions: Osteopenia gabapentin 800 mg tablet 800 mg PO TID Qty: 270 3RF sertraline 50 mg tablet See Rx Instructions .ROUTE .COMPLEX Qty: 270 3RF Dose Instruction: TAKE 3 TABLETS DAILY; MAXIMUM DAILY DOSE 150 MG. (DISCONTINUE PAXIL) Rx Instructions: TAKE 3 TABLETS DAILY; MAXIMUM DAILY DOSE 150 MG. (DISCONTINUE PAXIL) trazodone 50 mg tablet 150 mg PO HS Qty: 270 3RF buspirone 30 mg tablet 30 mg PO BID Qty: 180 3RF lisinopril 10 mg tablet 10 mg PO DAILY Qty: 30 11RF Rx Instructions: Dose reduction 05/21/2024 atorvastatin 40 mg tablet See Rx Instructions .ROUTE .COMPLEX Qty: 28 11RF Dose Instruction: TAKE 1 TABLET BY MOUTH DAILY Rx Instructions: TAKE 1 TABLET BY MOUTH DAILY omeprazole 20 mg capsule,delayed release(DR/EC) See Rx Instructions .ROUTE .COMPLEX Qty: 28 11RF Dose Instruction: TAKE 1 CAPSULE BY MOUTH DAILY 30 MINUTES BEFORE FOOD OR MEDS TAKE ON EMPTY STOMACH Rx Instructions: TAKE 1 CAPSULE BY MOUTH DAILY 30 MINUTES BEFORE FOOD OR MEDS TAKE ON EMPTY STOMACH mirabegron [Myrbetriq] 50 mg tablet extended release 24 hr See Rx Instructions .ROUTE .COMPLEX Qty: 28 11RF Dose Instruction: TAKE 1 TABLET BY MOUTH DAILY FOR BLADDER SPASMS Rx Instructions: TAKE 1 TABLET BY MOUTH DAILY FOR BLADDER SPASMS amlodipine 2.5 mg tablet See Rx Instructions .ROUTE .COMPLEX Qty: 28 11RF Dose Instruction: TAKE 1 TABLET BY MOUTH DAILY FOR BLOOD PRESSURE Rx Instructions: TAKE 1 TABLET BY MOUTH DAILY FOR BLOOD PRESSURE acetaminophen 500 mg capsule 1,000 mg PO Q8H PRN PRNQty: 90 0RF Discontinued bisacodyl [Dulcolax (bisacodyl)] 5 mg tablet,delayed release (DR/EC) 5 mg PO ONCE Qty: 4 0RF Rx Instructions: Take per colonoscopy instructions provided by ordering providers office polyethylene glycol 3350 17 gram/dose powder 17 g PO ONCE Qty: 238 0RF Rx Instructions: Take per colonoscopy instructions provided by ordering providers office Discharge Instructions Additional Instructions: Your colonoscopy went well today. You did have some evidence of blood in the colon. Some biopsies were performed and we will follow up with you regarding next steps once these biopsy results return. If you have any questions or concerns please contact the surgery office. 1. If tolerated, consume a soft, low fiber diet for 1-2 days. 2[address] Do not drive, drink alcohol, operate machinery, make critical decisions, or do activities that require coordination or balance for 24 hours. 3. Because air was put into your colon during the procedure, expelling air from your rectum (passing gas or farting) is normal. 4. You may not have a bowel movement for 1-3 days because of the colonoscopy prep. This is normal. 5. Go directly to the emergency room if you notice any of the following: Develop chills (warm to touch), or if you have a thermometer and your temperature is above 101 Difficulty breathing or difficultly swallowing Persistent vomiting Severe abdominal pain, other than gas cramps Severe chest pain Black, tarry stools Any bleeding ? exceeding one tablespoon 6. Call your physician if the site where your intravenous was started becomes red, swollen, painful, and warm to touch. 7. Your physician has reviewed your pre-procedure medications. Please continue to take those medications as previously ordered. You will be given specific information/education regarding any changes to your medications before leaving. Stand Alone Forms: Portal Information Activity:: Activity as Tolerated Diet:: As Tolerated Discharge Orders Discharge Orders: Discharge Order (Routine); Ordered 01/06/25 Ordered By: Chaparrita Oneil DS: Diagnosis Discharge Diagnosis (1) Family history of colon cancer: Status: Chronic (2) Diarrhea: Status: Inactive
--- NOTE | 2025-01-06 14:18 | W.COLOREPORT ---
Date of service: 01/06/25 Time of Service: 14:18 Colonoscopy Report Date of procedure: 01/06/25 Pre-op diagnosis general: Diarrhea, abdominal pain Post-op diagnosis procedure note: same Procedure: Colonoscopy with biopsy. Surgeon: Chaparrita Oneil Anesthesia Type: General:No Airway Estimated blood loss (mL): 2 Pathology: other (Ascending colon biopsy, descending colon biopsy ) Complications: None Disposition: PACU Indications: Patient is a 74 yo female who presents for a colonoscopy due to ongoing diarrhea. Her last colonoscopy was in 2021 with a tubular adenoma. She does note occasional blood in her stool as well. The risks and benefits of the procedure were discussed with her and consent was obtained prior to the procedure. Prep: Miralax/Dulcolax Procedure Start Time: 13:45 Procedure End Time: 14:07 Retraction Time: 8 Findings: Patchy bright red blood present in the ascending colon concerning for colitis. Evidence of truong-diverticulosis. Procedure Description: Informed consent was obtained. The patient was taken to the endoscopy suite and placed in the left lateral decubitus position. After adequate intravenous sedation, digital rectal exam was performed, which showed evidence of external hemorrhoids. A colonoscope was inserted into the rectum and negotiated to the cecum with some difficulty. The ileocecal valve and appendiceal orifice were identified. The prep was inadequate to identify small polyps. The entire colonic mucosa was then carefully circumferentially inspected upon slow withdrawal of the scope. The ascending colon had evidence of bright red blood and concern for colitis. A cold forcep biopsy of the ascending colon was performed. The remainder of the colon appeared normal. A cold forcep biopsy was obtained in the descending colon as well. Specimens were retrieved and sent to pathology. There was evidence of pandiverticulosis. Retroflexion in the rectum was showed evidence of internal hemorrhoids. The patient tolerated the procedure well with no complications. Postoperatively, the patient was transferred to the recovery room in stable condition. Dakota Bowel Prep Dakota Bowel Prep Right Colon: 1 Left Colon: 2 Transverse Colon: 2 Total Score: 5
[2025-01-06 14:58] VITALS: BP 129/65; PULSE 66; RESP 17; TEMP 36.2; O2SAT 97
--- NOTE | 2025-01-06 15:20 | W.ANESPOSTOP ---
Postoperative Evaluation Date, Time and Location Date Performed: 01/06/25 Time Performed: 15:05 Patient Location: Day Surgery Unit Vital Signs Most Recent Imported Vital Signs: Most Recent Vital Signs Temp Pulse Resp BP Pulse Ox 36.2 C L 66 17 129/65 97 01/06/25 14:58 01/06/25 14:58 01/06/25 14:58 01/06/25 14:58 01/06/25 14:58 Pain Score Most Recent Pain Score: Most Recent Pain Score Pain Level 2 01/06/25 14:58 Assessment Mental Status: Awake (Alert & Oriented to Patient Baseline) Airway and Respiratory Function: Patent airway with normal (patient baseline) respiratory exam Cardiovascular Function: Hemodynamically Stable Hydration Status: Adequately Hydrated Nausea & Vomiting: No Nausea or Vomiting Pain: Pain is tolerable per patient Peripheral Nerve Block: Patient did not receive a nerve block
== END 2025-01-06 15:05 | disposition home or self-care (01) ==
PROVIDERS: PCP Nurse Practitioner Adult Health; Visit Provider Student in an Organized Health Care Education/Training Program
PROC: 0DJD8ZZ Inspection of Lower Intestinal Tract, Via Natural or Artificial Opening Endoscopic (ICD-10-PCS; CPT 45378; principal; 2025-01-06 13:15)
DX: R19.7 Diarrhea, unspecified (principal); Z80.0 Family history of malignant neoplasm of digestive organs; K63.5 Polyp of colon; K64.8 Other hemorrhoids
CPT/HCPCS: 45380; 88305; J2704